=== PATIENT | female | born 1945 | race Caucasian/White ===

== ENCOUNTER 2018-01-30 12:20 | Observation (INO) | payer OTHER, MEDICARE ==
--- NOTE | 2018-01-30 12:49 | RAD REPORT ---
EXAM DESCRIPTION: Yoandy Single View01/30/2018 12:41 pm CLINICAL HISTORY: Chest pain COMPARISON: July 2017 FINDINGS: The lungs appear clear of acute infiltrate. The heart is normal size IMPRESSION: No acute abnormalities displayed
[2018-01-30 13:00] LABS: Absolute Lymphocytes (CBC) 1.2 K/uL (0.7-4.9); Absolute Monocytes 0.4 K/uL (0.1-1.3); Absolute Neutrophil 4.1 K/uL (1.8-8.0); Basophils % 0.2 % (0-1.3); Eosinophils % 2.6 % (0-4.4); Hematocrit 48.3 % (36.0-45.0); MCH 30.1 pg (27.0-35.0); MCV 89.9 fL (80-100); MPV 8.5 fL (7.6-11.3); Monocytes % 7.1 % (3.3-12.3); RBC Red Blood Cell Count 5.37 M/uL (3.86-4.86)
[2018-01-30 13:02] LABS: Protime INR 0.98
[2018-01-30] MEDS ORDERED: ASPIRIN 81 MG CHEWABLE TABLET ONE (13:12)
[2018-01-30] MEDS ORDERED: NITROGLYCERIN 0.4 MG/TAB SL ONE (13:15)
[2018-01-30 13:16] LABS: Albumin 4.1 g/dL (3.4-5.0); Bilirubin Direct 0.2 mg/dL (0-0.2); Bilirubin Total 0.6 mg/dL (0.2-1.0); Magnesium 2.6 mg/dL (1.8-2.4); Potassium 4.4 mmol/L (3.5-5.1); Protein, Total 7.3 g/dL (6.4-8.2)
--- NOTE | 2018-01-30 13:38 | EKG ---
Test Date: 2018-01-30 Test Time: 12:32:09 Skein Bander: JOHN MEASUREMENT RESULTS: Intervals: Rate: 53 MT: 162 QRSD: 80 QT: 408 QTc: 382 [place]: P: 21 MT: 162 QRS: -29 T: 12 INTERPRETIVE STATEMENTS: Sinus bradycardia Low voltage QRS Borderline ECG Compared to ECG 07/25/2017 06:18:37 Low QRS voltage now present Electronically Signed On 01-30-18 13:38:08 CDT by Isaiah Breaux
--- NOTE | 2018-01-30 13:47 | EDPHYS ---
Physician Documentation [facility] Name: Karoline Paredes Age: 72 yrs Sex: Female : 1945 Arrival Date: 01/30/2018 Time: 12:23 Bed 13 Private MD: ED Physician Chetan Swift HPI: 01/30 13:44 This 72 yrs old Female presents to ER via Ambulatory with complaints of Chest jr8 Pain. 13:44 The patient or guardian reports chest pain that is located primarily in the substernal jr8 area, anterior chest wall, left. Onset: acutely, today. The pain radiates to the left arm. Associated signs and symptoms: Pertinent positives: nausea. The chest pain is described as a pressure. Duration: The patient or guardian reports a single episode, that is still ongoing, that lasted 1 hour(s). Modifying factors: The symptoms are alleviated by nothing. the symptoms are aggravated by nothing. Severity of pain: At its worst the pain was moderate in the emergency department the pain is unchanged. The patient has experienced a previous episode. The patient has not recently seen a physician. Stated that she has had on/off chest pressure for past 3 days. Today has been the worst and longest episode . Historical: - Allergies: 12:26 Bactrim; hj 12:26 PENICILLINS; hj - Home Meds: 12:26 Aspirin Oral [Active]; gabapentin Oral [Active]; Glyburide Oral [Active]; lisinopril hj Oral [Active]; pantoprazole Oral [Active]; pravastatin Oral [Active]; Plavix Oral [Active]; - PMHx: 12:26 Diabetes - NIDDM; GERD; Hyperlipidemia; Hypertension; Myocardial infarction; hj - PSHx: 12:26 Cholecystectomy; Tubal ligation; Heart stents; hj - Immunization history:: Adult Immunizations up to date. - Social history:: Smoking status: Patient/guardian denies using tobacco, Patient/guardian denies using alcohol. - Ebola Screening: : Patient negative for fever greater than or equal to 101.5 degrees Fahrenheit, and additional compatible Ebola Virus Disease symptoms Patient denies exposure to infectious person Patient denies travel to an Ebola-affected area in the 21 days before illness onset. ROS: 13:44 Eyes: Negative for injury, pain, redness, and discharge, ENT: Negative for injury, jr8 pain, and discharge, Neck: Negative for injury, pain, and swelling, Respiratory: Negative for shortness of breath, cough, wheezing, and pleuritic chest pain, Abdomen/GI: Negative for abdominal pain, nausea, vomiting, diarrhea, and constipation, Back: Negative for injury and pain, MS/Extremity: Negative for injury and deformity, Skin: Negative for injury, rash, and discoloration, Neuro: Negative for headache, weakness, numbness, tingling, and seizure. 13:44 Cardiovascular: Positive for chest pain, Negative for edema, orthopnea, palpitations, paroxysmal nocturnal dyspnea. Exam: 13:44 Eyes: Pupils equal round and reactive to light, extra-ocular motions intact. Lids and jr8 lashes normal. Conjunctiva and sclera are non-icteric and not injected. Cornea within normal limits. Periorbital areas with no swelling, redness, or edema. ENT: Nares patent. No nasal discharge, no septal abnormalities noted. Tympanic membranes are normal and external auditory canals are clear. Oropharynx with no redness, swelling, or masses, exudates, or evidence of obstruction, uvula midline. Mucous membranes moist. Neck: Trachea midline, no thyromegaly or masses palpated, and no cervical lymphadenopathy. Supple, full range of motion without nuchal rigidity, or vertebral point tenderness. No Meningismus. Cardiovascular: Regular rate and rhythm with a normal S1 and S2. No gallops, murmurs, or rubs. Normal PMI, no JVD. No pulse deficits. Respiratory: Lungs have equal breath sounds bilaterally, clear to auscultation and percussion. No rales, rhonchi or wheezes noted. No increased work of breathing, no retractions or nasal flaring. Abdomen/GI: Soft, non-tender, with normal bowel sounds. No distension or tympany. No guarding or rebound. No evidence of tenderness throughout. Back: No spinal tenderness. No costovertebral tenderness. Full range of motion. Skin: Warm, dry with normal turgor. Normal color with no rashes, no lesions, and no evidence of cellulitis. MS/ Extremity: Pulses equal, no cyanosis. Neurovascular intact. Full, normal range of motion. Neuro: Awake and alert, GCS 15, oriented to person, place, time, and situation. Cranial nerves II-XII grossly intact. Motor strength 5/5 in all extremities. Sensory grossly intact. Cerebellar exam normal. Normal gait. Vital Signs: 12:27 BP 159 / 80; Pulse 56; Resp 18; Temp 98.0(O); Pulse Ox 95% on R/A; Weight 82.1 kg; hj Height 5 ft. 6 in. (167.64 cm); Pain 4/10; 13:37 BP 127 / 65; Pulse 57; Resp 16; Pulse Ox 100% on R/A; la1 15:45 BP 148 / 69; Pulse 60; Resp 16; Pulse Ox 100% on R/A; la1 12:27 Body Mass Index 29.21 (82.10 kg, 167.64 cm) hj MDM: 12:31 Patient medically screened. jr8 13:44 The patient was given aspirin in the Emergency Department. Data reviewed: vital signs, 8 nurses notes, lab test result(s), EKG, radiologic studies, plain films, and as a result, I will discharge patient. Data interpreted: Pulse oximetry: on room air is 100 %. Interpretation: normal. Counseling: I had a detailed discussion with the patient and/or guardian regarding: the historical points, exam findings, and any diagnostic results supporting the discharge/admit diagnosis, lab results, radiology results, the need for further work-up and treatment in the hospital. 01/30 12:31 Order name: Basic Metabolic Panel; Complete Time: 13:44 [facility] 01/30 12:31 Order name: CBC with Diff; Complete Time: 13:11 [facility] 01/30 12:31 Order name: LFT's; Complete Time: 13:44 [facility] 01/30 12:31 Order name: Magnesium; Complete Time: 13:44 [facility] 01/30 12:31 Order name: NT PRO-BNP; Complete Time: 13:44 [facility] 01/30 12:31 Order name: PT-INR; Complete Time: 13:11 [facility] 01/30 12:23 Order name: EKG; Complete Time: 12:23 01/30 12:31 Order name: Troponin (emerg Dept Use Only); Complete Time: 13:44 [facility] 01/30 12:31 Order name: XRAY Chest (1 view); Complete Time: 12:50 [facility] 01/30 12:31 Order name: Cardiac monitoring; Complete Time: 12:44 01/30 12:31 Order name: EKG - Nurse/Tech; Complete Time: 12:44 01/30 12:31 Order name: IV Saline Lock; Complete Time: 12:44 01/30 12:31 Order name: Labs collected and sent; Complete Time: 12:44 01/30 12:31 Order name: O2 Per Protocol; Complete Time: 12:44 01/30 12:31 Order name: O2 Sat Monitoring; Complete Time: 12:44 01/30 12:31 Order name: Urine Dipstick-Ancillary (obtain specimen); Complete Time: 15:52 8 Administered Medications: 13:03 Drug: Aspirin Chewable Tablet 324 mg Route: PO; la1 13:49 Follow up: Response: No adverse reaction la1 13:12 Drug: Nitroglycerin 0.4 mg Route: Sublingual; la1 13:49 Follow up: Response: Pain is decreased la1 Disposition: 17:41 Co-signature as Attending Physician, Chetan Swift MD Available for consultation at ps1 all times. . Disposition: 01/30/18 13:46 Hospitalization ordered by Jeffery Haines for Observation. Preliminary diagnosis is Angina pectoris. - Bed requested for Telemetry/MedSurg (observation). - Status is Observation. la1 - Condition is Stable. - Problem is new. - Symptoms have improved. UTI on Admission? No Signatures: Dispatcher [employer] EDMS Lenny Warren PA PA jr8 Chi Werner RN RN la1 Ethel Balderas ag Robert Adler RN RN hj Singer, Phillip, MD MD ps1 Corrections: (The following items were deleted from the chart) 13:46 13:46 Hospitalization Ordered by Jeffery Haines MD for Observation. Preliminary diagnosis jr8 is Chest pain, unspecified. Bed requested for Telemetry/MedSurg (observation). Status is Observation. Condition is Stable. Problem is new. Symptoms have improved. UTI on Admission? No. jr8 15:50 13:46 01/30/2018 13:46 Hospitalization Ordered by Jeffery Haines MD for Observation. ag Preliminary diagnosis is Angina pectoris. Bed requested for Telemetry/MedSurg (observation). Status is Observation. Condition is Stable. Problem is new. Symptoms have improved. UTI on Admission? No. jr8 16:18 15:50 01/30/2018 13:46 Hospitalization Ordered by Jeffery Haines MD for Observation. la1 Preliminary diagnosis is Angina pectoris. Bed requested for Telemetry/MedSurg (observation). Status is Observation. Condition is Stable. Problem is new. Symptoms have improved. UTI on Admission? No. ag
--- NOTE | 2018-01-30 13:47 | ER ---
Nurse's Notes [facility] Name: Karoline Paredes Age: 72 yrs Sex: Female : 1945 Arrival Date: 01/30/2018 Time: 12:23 Bed 13 Private MD: Diagnosis: Angina pectoris Presentation: 01/30 12:23 Presenting complaint: Patient states: i have this pain on my chest for 3 days now, i hj have a stent that was placed [address] Scales, and now the pain is getting worse, the pain moves to the back and shoulders, reports nausea; reports aching, heavy type of pain;. Transition of care: patient was not received from another setting of care. Onset of symptoms was January 27, 2018. Risk Assessment: Do you want to hurt yourself or someone else? Patient reports no desire to harm self or others. Initial Sepsis Screen: Does the patient meet any 2 criteria? No. Patient's initial sepsis screen is negative. Does the patient have a suspected source of infection? No. Patient's initial sepsis screen is negative. Care prior to arrival: None. 12:23 Method Of Arrival: Ambulatory 12:23 Acuity: JOVITA 3 Triage Assessment: 12:26 General: Appears in no apparent distress. uncomfortable, Behavior is calm, cooperative, hj appropriate for age. Pain: Complains of pain in chest Pain radiates to back and left arm Pain currently is 4 out of 10 on a pain scale. Cardiovascular: Capillary refill < 3 seconds Patient's skin is warm and dry. Historical: - Allergies: 12:26 Bactrim; 12:26 PENICILLINS; hj - Home Meds: 12:26 Aspirin Oral [Active]; gabapentin Oral [Active]; Glyburide Oral [Active]; lisinopril hj Oral [Active]; pantoprazole Oral [Active]; pravastatin Oral [Active]; Plavix Oral [Active]; - PMHx: 12:26 Diabetes - NIDDM; GERD; Hyperlipidemia; Hypertension; Myocardial infarction; hj - PSHx: 12:26 Cholecystectomy; Tubal ligation; Heart stents; hj - Immunization history:: Adult Immunizations up to date. - Social history:: Smoking status: Patient/guardian denies using tobacco, Patient/guardian denies using alcohol. - Ebola Screening: : Patient negative for fever greater than or equal to 101.5 degrees Fahrenheit, and additional compatible Ebola Virus Disease symptoms Patient denies exposure to infectious person Patient denies travel to an Ebola-affected area in the 21 days before illness onset. Screenin:26 Abuse screen: Denies threats or abuse. Denies injuries from another. Nutritional hj screening: No deficits noted. Tuberculosis screening: No symptoms or risk factors identified. Fall Risk None identified. Assessment: 12:27 Pain: Pain began 2-3 days ago. hj 12:42 General: Appears in no apparent distress. comfortable, Behavior is calm, cooperative. la1 Pain: Complains of pain in chest Pain radiates to left shoulder Pain currently is 4 out of 10 on a pain scale. Quality of pain is described as heavy. Neuro: Level of Consciousness is awake, alert, obeys commands, Oriented to person, place, time, situation. Cardiovascular: Heart tones S1 S2 present Capillary refill < 3 seconds Patient's skin is warm and dry. Rhythm is sinus rhythm. Respiratory: Airway is patent Respiratory effort is even, unlabored, Respiratory pattern is regular, symmetrical, Breath sounds are clear bilaterally. GI: Abdomen is round non-distended, Bowel sounds present X 4 quads. Patient currently denies diarrhea, nausea, vomiting. : No signs and/or symptoms were reported regarding the genitourinary system. 15:45 Reassessment: Patient appears in no apparent distress at this time. No changes from la1 previously documented assessment. Patient and/or family updated on plan of care and expected duration. Pain level reassessed. Patient is alert, oriented x 3, equal unlabored respirations, skin warm/dry/pink. Vital Signs: 12:27 BP 159 / 80; Pulse 56; Resp 18; Temp 98.0(O); Pulse Ox 95% on R/A; Weight 82.1 kg; hj Height 5 ft. 6 in. (167.64 cm); Pain 4/10; 13:37 BP 127 / 65; Pulse 57; Resp 16; Pulse Ox 100% on R/A; la1 15:45 BP 148 / 69; Pulse 60; Resp 16; Pulse Ox 100% on R/A; la1 12:27 Body Mass Index 29.21 (82.10 kg, 167.64 cm) ED Course: 12:23 Patient arrived in ED. hj 12:25 Triage completed. hj 12:27 Arm band placed on left wrist. hj 12:27 Patient has correct armband on for positive identification. Placed in gown. Bed in low hj position. Call light in reach. Side rails up X 1. Adult w/ patient. phototypesetting equipment monitor on. Pulse ox on. NIBP on. 12:27 Patient maintains SpO2 saturation greater than 95% on room air. hj 12:29 Chi Werner, RN is Primary Nurse. la1 12:30 Lenny Warren PA is PHCP. jr8 12:30 Chetan Swift MD is Attending Physician. jr8 12:40 X-ray completed. Portable x-ray completed in exam room. Patient tolerated procedure [facility] well. 12:41 XRAY Chest (1 view) In Process Unspecified. EDMS 12:43 No provider procedures requiring assistance completed. Inserted saline lock: 20 gauge la1 in left antecubital area, using aseptic technique. Blood collected. 13:05 EKG done, by actuarial technician. reviewed by Lenny PLASENCIA. [facility] 13:46 Jeffery Haines MD is Hospitalizing Provider. jr8 16:18 Patient admitted, IV remains in place. la1 Administered Medications: 13:03 Drug: Aspirin Chewable Tablet 324 mg Route: PO; la1 13:49 Follow up: Response: No adverse reaction ut1 13:12 Drug: Nitroglycerin 0.4 mg Route: Sublingual; la1 13:49 Follow up: Response: Pain is decreased la1 Outcome: 13:46 Decision to Hospitalize by Provider. jr8 16:17 Admitted to Med/surg accompanied by tech, via wheelchair, room 410, Report called to laPao Cortez 16:17 Condition: stable 16:17 Instructed on the need for admit. 16:18 Patient left the ED. la1 Signatures: Dispatcher [employer] EDMS Mckayla Garibay [facility] Lenny Warren PA PA 8 Chi Werner RN RN utRobert Tee RN RN hj Montes, Shakira 3
--- NOTE | 2018-01-30 15:13 | P.HP ---
Certification for Inpatient Patient admitted to: Observation With expected LOS: <2 Midnights Practitioner: I am a practitioner with admitting privileges, knowledge of patient current condition, hospital course, and medical plan of care. Services: Services provided to patient in accordance with Admission requirements found in Title 42 Section 412.3 of the Code of Federal Regulations Patient History Date of Service: 01/30/18 Reason for admission: CHEST PAIN History of Present Illness: MS. SALGADO IS A DIABETIC PATIENT WITH CORONARY STENT ABOUT [address] Laure SMITH. SHE FOR 3 DAYS HAS CHEST PAIN WITH L ARM RADIATION OFF AND ON WITH NAUSEA BUT NO DIAPHORESIS. Allergies Penicillins Allergy (Verified 04/22/17 23:12) Unknown sulfamethoxazole [From Bactrim] Allergy (Verified 04/22/17 23:12) Unknown trimethoprim [From Bactrim] Allergy (Verified 04/22/17 23:12) Unknown Home Medications: Aspirin Chewable [Aspirin Chewable*] 1 tab PO DAILY 02/07/15 Gabapentin [Neurontin*] 600 mg PO TID 02/07/15 Liraglutide [Victoza 2-Alcides] 1.2 mg DAILY 02/07/15 Glimepiride [Amaryl] 4 mg PO BID 04/23/17 Losartan Potassium [Cozaar] 100 mg PO DAILY 04/23/17 Atorvastatin Calcium [Lipitor] 80 mg PO BEDTIME #30 tab 04/25/17 Clopidogrel Bisulfate [Plavix*] 75 mg PO DAILY #30 tablet 04/25/17 Insulin -Regular Human [Novolin -R*] See Protocol SQ ACHS ml 04/25/17 Metoprolol Tartrate [Lopressor*] 25 mg PO BID 6AM 6PM #60 tab 04/25/17 Nitroglycerin [Nitrostat*] 0.4 mg SL UD PRN #1 bottle 04/25/17 - Past Medical/Surgical History Diabetic: Yes -: Diabetes -: tubaligation -: cholecystectomy -: Knee surgery -: 3 right shoulder surgeries - Family History Father -: Stroke Mother -: Heart disease, Other (see notes) Notes: ALZHEIMER'S Brother -: Heart disease - Social History Alcohol use: No CD- Drugs: No Review of Systems 10-point ROS is otherwise unremarkable Physical Examination - Physical Exam General: Alert, Mild distress HEENT: Atraumatic, PERRLA, Mucous membr. moist/pink, EOMI, Sclerae nonicteric Neck: Supple, 2+ carotid pulse no bruit, No LAD, Without JVD or thyroid abnormality Respiratory: Clear to auscultation bilaterally, Normal air movement Cardiovascular: Regular rate/rhythm, Normal S1 S2 Gastrointestinal: Normal bowel sounds, No tenderness Musculoskeletal: No tenderness Integumentary: No rashes Neurological: Normal gait, Normal speech, Normal strength at 5/5 x4 extr, Normal tone, Normal affect Lymphatics: No axilla or inguinal lymphadenopathy - Studies Laboratory Data (last 24 hrs) 01/30/18 12:40: PT 11.6, INR 0.98 01/30/18 12:40: WBC 5.8, Hgb 16.2 H, Hct 48.3 H, Plt Count 160 01/30/18 12:40: Sodium 140, Potassium 4.4, BUN 25 H, Creatinine 1.70 H, Glucose 167 H, Magnesium 2.6 H, Total Bilirubin 0.6, AST 27, ALT 32, Alkaline Phosphatase 89 Assessment and Plan - Problems (Diagnosis) (1) Chest pain due to CAD Current Visit: Yes Status: Acute Plan: THIS PAIN HAS CARDIAC CHARACTERISTICS. SHE IS HIGH RISK FOR CAD WITH RISK FACTORS OF HAVING CAD, DM, HTN, OBESITY, MENOPAUSE. LOVENOX SC BID. SMALLER DOSE SHE HAS CRF ALSO. ASA DAILY. CONSULT CARDIOLOLGY. (2) Diabetes mellitus type 2 in obese Current Visit: No Status: Chronic Plan: DIET IS NOT THE BEST HAS DONE WELL IN PAST WHEN SHE WATCHES DIET WITH MEDS. I HAVE TO CONTAIN THE COST DOWN TO GENERIC MEDS SHE IN THE PAST HAS NOT BEEN ABLE TO AFFORD EXPENSIVE BRAND NAME MEDS. - Advance Directives Does patient have a Living Will: No Does patient have a Durable POA for Healthcare: No
[2018-01-30] MEDS ORDERED: ONDANSETRON 4 MG/2 ML VIAL IV PRN (17:14)
[2018-01-30] MEDS: INSULIN -REGULAR HUMAN 50 UNIT/0.5 ML ML SQ SCH ×2 (17:14→21:00)
[2018-01-30] MEDS ORDERED: D50W 25 GM/50 ML SYRINGE IV PRN (17:14)
[2018-01-30] MEDS ORDERED: GLUCAGON 1 MG/VIAL IM PRN (17:14)
[2018-01-30 18:23] VITALS: BMI 29.2
[2018-01-30] MEDS: ENOXAPARIN 40 MG/0.4 ML SQ SCH (21:21)
[2018-01-31 02:06] LABS: Urine Appearance CLEAR; Urine Bilirubin NEGATIVE (NEG); Urine Blood NEGATIVE (NEG); Urine Color YELLOW; Urine Glucose 3+ (NEG); Urine Protein NEGATIVE (NEG); Urine Urobilinogen 0.2 mg/dL (0.2-1.0); Urine pH 5.5 (5.0-7.0)
[2018-01-31 02:07] LABS: Urine Microscopic Reflex NO UMIC
[2018-01-31 06:07] LABS: Potassium 4.7 mmol/L (3.5-5.1)
[2018-01-31 06:19] LABS: Absolute Lymphocytes (CBC) 0.8 K/uL (0.7-4.9); Absolute Monocytes 0.6 K/uL (0.1-1.3); Basophils % 0.3 % (0-1.3); Eosinophils % 1.2 % (0-4.4); Hematocrit 45.8 % (36.0-45.0); Lymphocytes % 10.4 % (15.3-44.8); MCH 30.4 pg (27.0-35.0); MPV 9.5 fL (7.6-11.3); Monocytes % 7.6 % (3.3-12.3); RBC Red Blood Cell Count 5.15 M/uL (3.86-4.86)
[2018-01-31] MEDS: ACETAMINOPHEN 500 MG TAB PO PRN (06:46)
[2018-01-31] MEDS: INSULIN -REGULAR HUMAN 50 UNIT/0.5 ML ML SQ SCH ×4 (07:30→20:32)
[2018-01-31] MEDS ORDERED: ASPIRIN EC 81 MG TAB PO SCH (09:00)
[2018-01-31] MEDS: ENOXAPARIN 40 MG/0.4 ML SQ SCH ×2 (10:45→20:17)
[2018-01-31] MEDS: ACETYLCYST 20% 800 MG/4 ML VIAL PO SCH ×2 (11:00→20:17)
--- NOTE | 2018-01-31 11:40 | CON ---
Identification: A 72-year-old woman. Chief Complaint: Chest pain. History Of Present Illness: Ms. Paredes had a right coronary stent in April 2017. Her other arteri es looked fine. The stent went well. She has been feeling fine after that stent until the past fabian ral days, she had several episodes of chest pain. No constant chest pain for the entire day, althoug h it is relieved at this point. Since she has been here, her cardiac enzymes all look normal. She h as a mild elevation of creatinine and has stage 3 kidney disease with estimated GFR at 37 mL/minute. Outpatient Medications: Venlafaxine, glimepiride, atorvastatin, losartan, metoprolol, empagliflozin, gabapentin and Plavix. Allergies: SHE REPORTS DRUG INTOLERANCE TO PENICILLIN, SULFAMETHOXAZOLE, TRIMETHOPRIM. Physical Examination: Vital Signs: 5 feet, 6 inches, 181 pounds. HEENT: Normal carotids. No bruit. Lungs: Clear. Cardiac Exam: Normal. Abdomen: Soft. EXTREMITIES: Normal distal pulses. Diagnostic Data: The electrocardiogram shows sinus bradycardia, low voltage, no infarction, injury, or ischemia. Impression And Plan: For Ms. Paredes I have recommended that we do a cardiac cath. We will do that 2 days from now and the tailings dam laborer is open again. Hopefully, we will find that things are stable. We ca n attribute her pain to something other than the heart with confidence. If not, we will be ready to do a stent at the same time. She seems to understand the procedure, its potential benefits, indications, risks, and agrees to proceed. JULIA/JOHN Voice ID: [id number] Report ID: [id number]
--- NOTE | 2018-01-31 16:26 | P.PN ---
Subjective Date of Service: 01/31/18 Chief Complaint: CHEST PAIN Subjective: Improving (some pain only.) Review of Systems 10-point ROS is otherwise unremarkable General: Weakness, Malaise Physical Examination - Vital Signs Temperature: 97.1 F Blood Pressure: 98/75 Pulse: 95 Respirations: 17 Pulse Ox (%): 100 - Physical Exam General: Alert, In no apparent distress HEENT: Atraumatic, PERRLA, EOMI Neck: Supple, JVD not distended Respiratory: Clear to auscultation bilaterally, Normal air movement Cardiovascular: Regular rate/rhythm, Normal S1 S2 Gastrointestinal: Normal bowel sounds, No tenderness Musculoskeletal: No tenderness Integumentary: No rashes Neurological: Normal speech, Normal tone, Normal affect Lymphatics: No axilla or inguinal lymphadenopathy - Studies Medications List Reviewed: Yes Assessment And Plan - Current Problems (Diagnosis) (1) Chest pain due to CAD Current Visit: Yes Status: Acute Plan: THIS PAIN HAS CARDIAC CHARACTERISTICS. SHE IS HIGH RISK FOR CAD WITH RISK FACTORS OF HAVING CAD, DM, HTN, OBESITY, MENOPAUSE. LOVENOX SC BID. SMALLER DOSE SHE HAS CRF ALSO. ASA DAILY. CONSULT CARDIOLOLGY. CATH ON FRIDAY. STABLE FO R NOW STOP ASA RESUME PLAVIX. CREAT BETTER (2) Diabetes mellitus type 2 in obese Current Visit: No Status: Chronic Plan: DIET IS NOT THE BEST HAS DONE WELL IN PAST WHEN SHE WATCHES DIET WITH MEDS. I HAVE TO CONTAIN THE COST DOWN TO GENERIC MEDS SHE IN THE PAST HAS NOT BEEN ABLE TO AFFORD EXPENSIVE BRAND NAME MEDS. DM NOT CONTROLLED NOT ABLE TO WATCH DIET SHE WILL TAKE TRULICITY OR OZEMPIC BUT CAN'T AFFORD.
[2018-01-31] MEDS ORDERED: GLIMEPIRIDE 2 MG TABLET PO SCH (17:00)
[2018-01-31] MEDS: GLIMEPIRIDE 4 MG TABLET PO SCH (17:23)
[2018-01-31] MEDS: METOPROLOL TAR 25 MG TAB PO SCH (17:24)
[2018-01-31] MEDS ORDERED: METOPROLOL TAR 25 MG TAB PO SCH (18:00)
[2018-01-31] MEDS: ATORVASTATIN 80 MG TAB PO SCH (20:18)
[2018-01-31] MEDS: VENLAFAXINE 37.5 MG PO SCH (20:18)
[2018-01-31] MEDS: GABAPENTIN 600 MG TABLET PO SCH (20:19)
[2018-01-31] MEDS ORDERED: ATORVASTATIN 80 MG TAB PO SCH (21:00)
[2018-01-31] MEDS ORDERED: VENLAFAXINE HCL 37.5 MG TAB PO SCH (21:00)
[2018-01-31] MEDS ORDERED: GABAPENTIN 300 MG CAP PO SCH (21:00)
[2018-02-01] MEDS: METOPROLOL TAR 25 MG TAB PO SCH ×2 (06:13→18:18)
[2018-02-01 06:14] LABS: Potassium 3.9 mmol/L (3.5-5.1)
[2018-02-01] MEDS: INSULIN -REGULAR HUMAN 50 UNIT/0.5 ML ML SQ SCH ×4 (07:30→21:00)
[2018-02-01] MEDS ORDERED: CLOPIDOGREL 75 MG TABLET PO SCH (09:00)
[2018-02-01] MEDS ORDERED: LOSARTAN POTASSIUM 50 MG TABLET PO SCH (09:00)
[2018-02-01] MEDS: ENOXAPARIN 40 MG/0.4 ML SQ SCH (09:25)
[2018-02-01] MEDS: ACETYLCYST 20% 800 MG/4 ML VIAL PO SCH ×2 (09:26→23:55)
[2018-02-01] MEDS: LOSARTAN POTASSIUM 100 MG TABLET PO SCH (09:28)
[2018-02-01] MEDS: GLIMEPIRIDE 4 MG TABLET PO SCH ×3 (09:30→18:19)
[2018-02-01] MEDS: CLOPIDOGREL 75 MG TABLET PO SCH (09:31)
[2018-02-01] MEDS: GABAPENTIN 600 MG TABLET PO SCH ×2 (09:32→21:00)
[2018-02-01] MEDS: JARDIANCE 25 MG TABLET PO SCH (09:33)
--- NOTE | 2018-02-01 11:08 | PN ---
Mrs. Paredes seems to be feeling fine. Because she had a stent put in her right coronary and now has c hest pain, I have recommended a cardiac cath. We will do that tomorrow. Her right upper arm has had extensive damage. The bones are replaced with metal objects and the metal objects had to be removed , so I am afraid the tissues around the brachial artery are probably and such that I do not want to a ttempt a radial approach from the right. We could consider from the left, but I have recommended doi ng it from the femoral artery. We will do that and see what we need to see tomorrow. Hopefully, the stent will be patent and she has no new lesions and we can attribute her chest pain to something non cardiac. JULIA/JOHN Voice ID: [id number] Report ID: [id number]
--- NOTE | 2018-02-01 11:20 | P.PN ---
Subjective Date of Service: 02/01/18 Chief Complaint: CHEST PAIN Subjective: Improving (slight pain still there.) Review of Systems 10-point ROS is otherwise unremarkable Physical Examination - Vital Signs Temperature: 97.8 F Blood Pressure: 122/75 Pulse: 64 Respirations: 17 Pulse Ox (%): 100 - Physical Exam General: Alert, Mild distress HEENT: Atraumatic, PERRLA, EOMI Neck: Supple, JVD not distended Respiratory: Clear to auscultation bilaterally, Normal air movement Cardiovascular: Regular rate/rhythm, Normal S1 S2, Other (VARICOSE VEINS, MODERATE) Gastrointestinal: Normal bowel sounds, No tenderness Musculoskeletal: No tenderness Integumentary: No rashes Neurological: Normal speech, Normal tone, Normal affect Lymphatics: No axilla or inguinal lymphadenopathy - Studies Medications List Reviewed: Yes Assessment And Plan - Current Problems (Diagnosis) (1) Chest pain due to CAD Current Visit: Yes Status: Acute Plan: THIS PAIN HAS CARDIAC CHARACTERISTICS. SHE IS HIGH RISK FOR CAD WITH RISK FACTORS OF HAVING CAD, DM, HTN, OBESITY, MENOPAUSE. LOVENOX SC BID. SMALLER DOSE SHE HAS CRF ALSO. ASA DAILY. CONSULT CARDIOLOLGY. CATH ON FRIDAY. STABLE FO R NOW STOP ASA RESUME PLAVIX. CREAT BETTER (2) Diabetes mellitus type 2 in obese Current Visit: No Status: Chronic Plan: DIET IS NOT THE BEST HAS DONE WELL IN PAST WHEN SHE WATCHES DIET WITH MEDS. I HAVE TO CONTAIN THE COST DOWN TO GENERIC MEDS SHE IN THE PAST HAS NOT BEEN ABLE TO AFFORD EXPENSIVE BRAND NAME MEDS. DM NOT CONTROLLED NOT ABLE TO WATCH DIET SHE WILL TAKE TRULICITY OR OZEMPIC BUT CAN'T AFFORD. (3) Varicose vein of leg Current Visit: Yes Status: Chronic Plan: SHE HAS NO PAIN, SWELLING OR ULCERS SHE MAY WEAR STOCKINGS BUT DOES NOT LIKE HOT FEELING. Qualifiers: Laterality: bilateral
[2018-02-01] MEDS: ACETAMINOPHEN 500 MG TAB PO PRN (16:37)
[2018-02-01] MEDS ORDERED: NITROGLYCERIN 0.4 MG/TAB SL ONE (17:00)
[2018-02-01] MEDS ORDERED: ENOXAPARIN 80 MG/0.8 ML SQ SCH (17:00)
[2018-02-01] MEDS ORDERED: ENOXAPARIN 80 MG/0.8 ML SQ ONE (18:00)
[2018-02-01] MEDS: ATORVASTATIN 80 MG TAB PO SCH (21:00)
[2018-02-01] MEDS: VENLAFAXINE 37.5 MG PO SCH (21:00)
[2018-02-02] MEDS: ACETYLCYST 20% 800 MG/4 ML VIAL PO SCH
--- NOTE | 2018-02-02 05:41 | EKG ---
Test Date: 2018-02-01 Test Time: 16:48:23 Go Cart Mechanic: MILE MEASUREMENT RESULTS: Intervals: Rate: 61 MD: 152 QRSD: 78 QT: 410 QTc: 412 [place]ford: P: 27 MD: 152 QRS: -32 T: 29 INTERPRETIVE STATEMENTS: Normal sinus rhythm Left axis deviation Inferior infarct, age undetermined Abnormal ECG Compared to ECG 01/30/2018 12:32:09 Left-axis deviation now present Myocardial infarct finding now present Sinus bradycardia no longer present Electronically Signed On 02-02-18 05:40:45 CDT by Isaiah Breaux
[2018-02-02] MEDS: METOPROLOL TAR 25 MG TAB PO SCH ×2 (06:00→17:13)
[2018-02-02] MEDS: INSULIN -REGULAR HUMAN 50 UNIT/0.5 ML ML SQ SCH ×3 (07:30→16:30)
[2018-02-02] MEDS: GLIMEPIRIDE 4 MG TABLET PO SCH ×2 (08:00→17:13)
[2018-02-02] MEDS: CLOPIDOGREL 75 MG TABLET PO SCH (08:59)
[2018-02-02] MEDS: JARDIANCE 25 MG TABLET PO SCH (09:00)
[2018-02-02] MEDS: GABAPENTIN 600 MG TABLET PO SCH (09:00)
[2018-02-02] MEDS: LOSARTAN POTASSIUM 100 MG TABLET PO SCH (09:00)
[2018-02-02] MEDS ORDERED: HEPA 1000U/500MLS 1,000 UNIT/500 ML BAG IV ONE (10:20)
[2018-02-02] MEDS ORDERED: NA CHLORIDE 0.9% 0 ML ONE (10:20)
[2018-02-02] MEDS ORDERED: ATROPINE SULF 1 MG/10 ML SYR IV ONE (10:20)
[2018-02-02] MEDS ORDERED: LIDOCAINE 1% MPF 5 ML VIAL ONE (10:34)
[2018-02-02] MEDS ORDERED: NA CHLORIDE 0.9% 500 ML ONE (10:53)
[2018-02-02] MEDS ORDERED: MIDAZOLAM HCL 2 MG/2 ML INJ ONE (10:53)
[2018-02-02] MEDS ORDERED: FENTANYL CITR 100 MCG/2 ML ONE (10:53)
[2018-02-02 13:21] VITALS: TEMP 97.7
[2018-02-02 15:31] VITALS: BP 107/53; O2SAT 93
--- NOTE | 2018-02-02 18:15 | P.DS ---
Admission Date: 01/30/18 Discharge Date: 02/02/18 Disposition: ROUTINE DISCHARGE Discharge Condition: FAIR Reason for Admission: CHEST PAIN - Problems (1) Chest pain due to CAD Onset Date: 02/02/18 Current Visit: Yes Status: Acute (2) Diabetes mellitus type 2 in obese Onset Date: 02/02/18 Current Visit: Yes Status: Chronic (3) Varicose vein of leg Current Visit: Yes Status: Chronic Qualifiers: Laterality: bilateral Brief History of Present Illness: MS. SALGADO IS A DIABETIC PATIENT WITH CORONARY STENT ABOUT [address] Laure SMITH. SHE FOR 3 DAYS HAS CHEST PAIN WITH L ARM RADIATION OFF AND ON WITH NAUSEA BUT NO DIAPHORESIS. SHE HAD CATH TODAY. NO NEW ISSUES FOUND DC HOME IN STABLE CONDTION ALREADY ON MEDS FOR HEART SHE IS WILLING TO TRY OZEMIC QWK. Vital Signs/Physical Exam: Temp Pulse Resp BP Pulse Ox 97.7 F 81 16 107/53 L 99 02/02/18 13:11 02/02/18 17:17 02/02/18 15:11 02/02/18 15:11 02/02/18 08:00 Laboratory Data at Discharge: WBC 7.5 K/uL (4.3-10.9) D 01/31/18 05:19 Hgb 15.6 g/dL (12.0-15.0) H 01/31/18 05:19 Hct 45.8 % (36.0-45.0) H 01/31/18 05:19 Plt Count 161 K/uL (152-406) 01/31/18 05:19 PT 11.6 SECONDS (9.5-12.5) 01/30/18 12:40 INR 0.98 01/30/18 12:40 Sodium 141 mmol/L (136-145) 02/01/18 05:26 Potassium 3.9 mmol/L (3.5-5.1) 02/01/18 05:26 BUN 23 mg/dL (7-18) H 02/01/18 05:26 Creatinine 1.20 mg/dL (0.55-1.3) 02/01/18 05:26 Glucose 136 mg/dL (74-106) H 02/01/18 05:26 Magnesium 2.6 mg/dL (1.8-2.4) H 01/30/18 12:40 Total Bilirubin 0.6 mg/dL (0.2-1.0) 01/30/18 12:40 AST 27 U/L (15-37) 01/30/18 12:40 ALT 32 U/L (12-78) 01/30/18 12:40 Alkaline Phosphatase 89 U/L (45-117) 01/30/18 12:40 Troponin I < 0.02 ng/mL (0.0-0.045) 01/30/18 21:15 Triglycerides 189 mg/dL (<150) H 01/30/18 16:15 Cholesterol 133 mg/dL (<200) 01/30/18 16:15 LDL Cholesterol Direct 74 mg/dL (100-129) L 02/01/18 05:26 HDL Cholesterol 47 mg/dL (40-60) 01/30/18 16:15 Cholesterol/HDL Ratio 2.83 01/30/18 16:15 Home Medications: Atorvastatin Calcium [Lipitor] 80 mg PO BEDTIME 01/30/18 Clopidogrel Bisulfate [Plavix*] 75 mg PO DAILY 01/30/18 Empagliflozin [Jardiance] 25 mg PO DAILY 01/30/18 Gabapentin [Neurontin] 600 mg PO BID 01/30/18 Glimepiride 4 mg PO BID 01/30/18 Losartan Potassium 100 mg PO DAILY 01/30/18 Metoprolol Tartrate 25 mg PO BID 6AM 6PM 01/30/18 Venlafaxine HCl 37.5 mg PO BEDTIME 01/30/18 Patient Discharge Instructions: FU IN OFFICE TWO WEEKS FROM NOW. FRIDAY. PL CALL TO MAKE APT. Diet: ADA Followup: Jeffery Haines MD [Primary Care Provider] - (2 weeks) Isaiah Breaux MD [ACTIVE - CAN ADMIT] - 1-2 Weeks
--- NOTE | 2018-02-02 22:32 | OP ---
Surgeon: Isaiah Breaux MD Chief Complaint: Chest pain. Procedures: Left heart catheterization, coronary left ventricular angiography. Findings: The patient has a normal ejection fraction and wall motion. The RCA stent placed in 2016 is widely patent. Normal flow. The LAD, mid RCA have mild disease. A large obtuse margina l is free of disease. A small distal circumflex after the obtuse marginal has sequential subtotal oc clusions. There is VONDA grade 0 to 1 flow. It is a small distal vessel and not felt to be amenable to angioplasty. It is unchanged compared to April 2017 and our plan is for medical therapy. Procedure In Detail: The patient was brought to the cardiac labor relations consultant in a fasting state, sedated wit h Versed and fentanyl, prepared and draped in usual sterile fashion. 15 cc of lidocaine was used to anesthetize the tissues of the right femoral artery. The artery was entered using an 18-gauge needle , short J-wire, modified Seldinger technique, 4-Kazakh sheath. We did the left coronary with a JL4, the right coronary with a 3DRC, and left ventricle with an angled pigtail. At the end of the procedu re, we took an angiogram of the right femoral artery using the sheath, and we elected to close with a n Angio-Seal device. This was successful. Estimated Blood Loss: 20 cc. Dredge Runner: Jena Norris. Complications: None. JULIA/JOHN Voice ID: [id number] Report ID: [id number]
== END 2018-02-02 18:56 | disposition home or self-care (01) ==
LOC: ER 12:20 → ERHOLD 15:01 → 4TH 16:08
PROVIDERS: ADMIT Internal Medicine; ATTEND Internal Medicine
PROC: 4A023N7 Measurement of Cardiac Sampling and Pressure, Left Heart, Percutaneous Approach (ICD-10-PCS; principal; 2018-02-02)
PROC: B2111ZZ Fluoroscopy of Multiple Coronary Arteries using Low Osmolar Contrast (ICD-10-PCS; 2018-02-02)
PROC: B2151ZZ Fluoroscopy of Left Heart using Low Osmolar Contrast (ICD-10-PCS; 2018-02-02)
DX: I25.119 Atherosclerotic heart disease of native coronary artery with unspecified angina pectoris (principal); I12.9 Hypertensive chronic kidney disease with stage 1 through stage 4 chronic kidney disease, or unspecified chronic kidney disease; N18.3 Chronic kidney disease, stage 3 (moderate); Z95.5 Presence of coronary angioplasty implant and graft; Z87.891 Personal history of nicotine dependence; E11.22 Type 2 diabetes mellitus with diabetic chronic kidney disease; Z79.84 Long term (current) use of oral hypoglycemic drugs; E78.5 Hyperlipidemia, unspecified; E66.9 Obesity, unspecified; Z68.29 Body mass index [BMI] 29.0-29.9, adult; I83.93 Asymptomatic varicose veins of bilateral lower extremities; Z79.02 Long term (current) use of antithrombotics/antiplatelets; Z88.0 Allergy status to penicillin; Z88.2 Allergy status to sulfonamides; R00.1 Bradycardia, unspecified; K21.9 Gastro-esophageal reflux disease without esophagitis; I25.2 Old myocardial infarction
CPT/HCPCS: 36415 ×3; 71045; 80048 ×3; 80061; 80076; 81003; 82962 ×12; 83036 ×2; 83721; 83735; 83880; 84484 ×3; 85025 ×2; 85610; 93005 ×3; 93458; 99285; C1760; C1893; J1650 ×5; J2250; J3010; G0378; J0583

== ENCOUNTER 2018-02-28 10:31 | Emergency (ER) | payer OTHER, MEDICARE ==
[2018-02-28] MEDS ORDERED: TETANUS & DIPHTHERIA TOX,ADULT 0.5 ML VIAL ONE (12:02)
[2018-02-28] MEDS ORDERED: AMOX/K CLAV 875 MG TAB ONE (12:02)
--- NOTE | 2018-02-28 12:46 | EDPHYS ---
Physician Documentation [facility] Name: Karoline Paredes Age: 72 yrs Sex: Female : 1945 Arrival Date: 02/28/2018 Time: 10:32 Bed 13 Private MD: Jeffery Haines V ED Physician Lionel Berg HPI: 02/28 11:24 This 72 yrs old Female presents to ER via Unassigned with complaints of Dog jmm Bite. 11:24 The patient was bitten on the right arm and right leg. Onset: The symptoms/episode jmm began/occurred acutely, just prior to arrival. Secondary to the bite the patient reports multiple puncture wounds, that are superficial. This is a 72 year old female that presents to the ED with right wrist and right thigh puncture wounds after being bitten by a neighbors dog. Patient states she was checking on the dog and it attacked her when it saw the tongue binder behind her. Denies other injuries. Is not UTD on tetanus. . Historical: - Allergies: 11:10 Bactrim; rb1 11:10 PENICILLINS; rb1 - Home Meds: 11:10 Aspirin Oral [Active]; gabapentin Oral [Active]; Glyburide Oral [Active]; lisinopril rb1 Oral [Active]; pantoprazole Oral [Active]; Plavix Oral [Active]; pravastatin Oral [Active]; - PMHx: 11:10 Diabetes - NIDDM; GERD; Hyperlipidemia; Hypertension; Myocardial infarction; rb1 - PSHx: 11:10 Cholecystectomy; Tubal ligation; Heart stents; rb1 - Immunization history:: Adult Immunizations up to date, Last tetanus immunization: unknown. - Social history:: Smoking status: Patient/guardian denies using tobacco. - Ebola Screening: : Patient negative for fever greater than or equal to 101.5 degrees Fahrenheit, and additional compatible Ebola Virus Disease symptoms. ROS: 11:24 Constitutional: Negative for fever, chills, and weight loss, Cardiovascular: Negative jmm for chest pain, palpitations, and edema, Respiratory: Negative for shortness of breath, cough, wheezing, and pleuritic chest pain, Abdomen/GI: Negative for abdominal pain, nausea, vomiting, diarrhea, and constipation. 11:24 Skin: Positive for puncture. 11:24 All other systems are negative. Exam: 11:24 Head/Face: atraumatic. Chest/axilla: Normal chest wall appearance and motion. [facility] Cardiovascular: Regular rate and rhythm. No edema appreciated Respiratory: Normal respirations, no respiratory distress appreciated 11:24 Constitutional: The patient appears in no acute distress, alert, awake. 11:24 Skin: injury, puncture(s), punctures noted ot the right mid foremar and the right thigh. 11:24 Musculoskeletal/extremity: No bony tenderness noted to the right forearm, full radial [facility] pulse, compartments are soft, NVI. 11:24 Neuro: Orientation: is normal, Mentation: is normal, Gait: is steady. 11:24 Psych: Behavior/mood is pleasant, cooperative. Vital Signs: 11:10 BP 132 / 67; Pulse 71; Resp 17; Temp 98.1(O); Pulse Ox 98% on R/A; Weight 86.64 kg (R); rb1 Height 5 ft. 6 in. (167.64 cm) (R); Pain 4/10; 12:08 BP 133 / 65; Pulse 68; Resp 18; Pulse Ox 99% on R/A; rb1 13:08 BP 136 / 63; Pulse 60; Resp 17; Pulse Ox 100% on R/A; Pain 2/10; rb1 11:10 Body Mass Index 30.83 (86.64 kg, 167.64 cm) rb1 MDM: 11:24 Patient medically screened. [facility] 12:44 Data reviewed: vital signs, nurses notes. Counseling: I had a detailed discussion with [facility] the patient and/or guardian regarding: the historical points, exam findings, and any diagnostic results supporting the discharge/admit diagnosis, the need for outpatient follow up, to return to the emergency department if symptoms worsen or persist or if there are any questions or concerns that arise at home. ED course: Patient given wound infection return precautions. Patient understood and agrees with the plan of care. . 02/28 11:30 Order name: Forearm Left XRAY; Complete Time: 12:53 [facility] Administered Medications: 12:00 Drug: Augmentin 875 mg Route: PO; rb1 12:30 Follow up: Response: No adverse reaction rb1 12:00 Drug: Tetanus-Diphtheria Toxoid Adult 0.5 ml {Pharmacognosist: [employer]. Exp: rb1 03/11/2020. Lot #: [id number]. } Route: IM; Site: left deltoid; 12:15 Follow up: Response: No adverse reaction rb1 13:09 Drug: Pepcid 20 mg Route: PO; rb1 13:42 Follow up: Response: No adverse reaction rb1 13:20 Drug: Dexamethasone 10 mg Route: IM; Site: right gluteus; iw 13:50 Follow up: Response: No adverse reaction rb1 Disposition: 18:21 Co-signature as Attending Physician, Lionel Berg MD. rn Disposition: 02/28/18 12:46 Discharged to Home. Impression: Dog Bite to the Right Forearm, Dog Bite to the Right Thigh. - Condition is Stable. - Discharge Instructions: Animal Bite. - Prescriptions for Doxycycline Hyclate 100 mg Oral Tablet - take 1 tablet by ORAL route every 12 hours; 20 tablet. - Medication Reconciliation Form, Thank You Letter, Antibiotic Education, Prescription Opioid Use form. - Follow up: Jeffery Haines MD; When: As needed; Reason: Recheck today's complaints, Continuance of care, Re-evaluation by your physician. Signatures: Dispatcher [employer] EDMS Rafael Mckinney PA PA jmm Williams, Irene, RN Lionel Hernandez MD MD rn Barber, Rebecca, BUSHRA RN rb1 Corrections: (The following items were deleted from the chart) 11:50 11:24 Skin: injury, puncture(s), nithya barriga 13:52 12:46 02/28/2018 12:46 Discharged to Home. Impression: Dog Bite to the Right Forearm; rb1 Dog Bite to the Right Thigh. Condition is Stable. Forms are Medication Reconciliation Form, Thank You Letter, Antibiotic Education, Prescription Opioid Use. Follow up: Jeffery Haines; When: As needed; Reason: Recheck today's complaints, Continuance of care, Re-evaluation by your physician. nithya
--- NOTE | 2018-02-28 12:46 | ER ---
Nurse's Notes [facility] Name: Karoline Paredes Age: 72 yrs Sex: Female : 1945 Arrival Date: 02/28/2018 Time: 10:32 Bed 13 Private MD: Jeffery Haines V Diagnosis: Dog Bite to the Right Forearm;Dog Bite to the Right Thigh Presentation: 02/28 11:10 Presenting complaint: Patient states: she went over her neighbors house and when she rb1 tried to leave the neighbors [place] bit her on the right forearm and right thigh. Transition of care: patient was not received from another setting of care. Onset of symptoms was February 28, 2018 at 09:30. Risk Assessment: Do you want to hurt yourself or someone else? Patient reports no desire to harm self or others. Initial Sepsis Screen: Does the patient meet any 2 criteria? No. Patient's initial sepsis screen is negative. Does the patient have a suspected source of infection? No. Patient's initial sepsis screen is negative. Care prior to arrival: None. 11:10 Method Of Arrival: Ambulatory rb1 11:10 Acuity: JOVITA 3 rb1 Triage Assessment: 11:10 Bite description: bite sustained to right leg and right arm by a dog, animal rb1 information: Appearance: appeared well, is from animal, vaccination(s) is unknown, was sustained 2-4 hours ago. Animal status: unknown and not captured, Animal control has been notified. General: Appears uncomfortable, Behavior is calm, cooperative. Pain: Complains of pain in right leg and right arm Pain currently is 4 out of 10 on a pain scale. Pain began 0930 this morning. Neuro: Level of Consciousness is awake, alert, obeys commands, Oriented to person, place, time, situation. Cardiovascular: Capillary refill < 3 seconds is brisk in bilateral fingers. Respiratory: Airway is patent Respiratory effort is even, unlabored, Respiratory pattern is regular, symmetrical. GI: No signs and/or symptoms were reported involving the gastrointestinal system. : No signs and/or symptoms were reported regarding the genitourinary system. Derm: Wound noted right leg and right arm Wound is punctures from the dog teeth. right forearm has minimal bleeding and right thigh is not bleeding. Musculoskeletal: Range of motion: intact in all extremities. Historical: - Allergies: 11:10 Bactrim; rb1 11:10 PENICILLINS; rb1 - Home Meds: 11:10 Aspirin Oral [Active]; gabapentin Oral [Active]; Glyburide Oral [Active]; lisinopril rb1 Oral [Active]; pantoprazole Oral [Active]; Plavix Oral [Active]; pravastatin Oral [Active]; - PMHx: 11:10 Diabetes - NIDDM; GERD; Hyperlipidemia; Hypertension; Myocardial infarction; rb1 - PSHx: 11:10 Cholecystectomy; Tubal ligation; Heart stents; rb1 - Immunization history:: Adult Immunizations up to date, Last tetanus immunization: unknown. - Social history:: Smoking status: Patient/guardian denies using tobacco. - Ebola Screening: : Patient negative for fever greater than or equal to 101.5 degrees Fahrenheit, and additional compatible Ebola Virus Disease symptoms. Screenin:10 Abuse screen: Denies threats or abuse. Nutritional screening: No deficits noted. rb1 Tuberculosis screening: No symptoms or risk factors identified. Fall Risk None identified. Assessment: 11:10 General: See triage assessment. rb1 11:10 Derm: Skin pt. has abrasions on her right thigh and has two holes on the right forearm rb1 from the dog bite. Skin is pink, warm \T\ dry. 12:10 Reassessment: Called [facility] to report the dog bite. Bite occurred in [address] at [address] [place] [address]. Dog vaccinations are unknown. All questions asked and answered. Event # 2018 - [id number]. 13:00 Reassessment: Patient appears in no apparent distress at this time. Patient and/or rb1 family updated on plan of care and expected duration. Pain level reassessed. Patient is alert, oriented x 3, equal unlabored respirations, skin warm/dry/pink. 13:20 Reassessment: No signs and symptoms of adverse reaction to the medications. rb1 13:33 Reassessment: Patient appears in no apparent distress at this time. No changes from rb1 previously documented assessment. Family at bedside. Vital Signs: 11:10 BP 132 / 67; Pulse 71; Resp 17; Temp 98.1(O); Pulse Ox 98% on R/A; Weight 86.64 kg (R); rb1 Height 5 ft. 6 in. (167.64 cm) (R); Pain 4/10; 12:08 BP 133 / 65; Pulse 68; Resp 18; Pulse Ox 99% on R/A; rb1 13:08 BP 136 / 63; Pulse 60; Resp 17; Pulse Ox 100% on R/A; Pain 2/10; rb1 11:10 Body Mass Index 30.83 (86.64 kg, 167.64 cm) rb1 ED Course: 10:32 Patient arrived in ED. sb2 10:32 Jeffery Haines MD is Private Physician. sb2 11:06 Rafael Mckinney PA is PHCP. jmm 11:06 Lionel Berg MD is Attending Physician. jmm 11:09 Brenda Ramirez, BUSHRA is Primary Nurse. rb1 11:10 Arm band placed on left wrist. rb1 11:10 Patient has correct armband on for positive identification. Bed in low position. Call rb1 light in reach. Side rails up X 1. Pulse ox on. NIBP on. 12:05 Triage completed. rb1 12:33 Forearm Left XRAY In Process Unspecified. EDMS 12:34 X-ray completed. Portable x-ray completed in exam room. Patient tolerated procedure la2 well. 12:45 Jeffery Haines MD is Referral Physician. m 13:52 No provider procedures requiring assistance completed. Patient did not have IV access rb1 during this emergency room visit. Administered Medications: 12:00 Drug: Augmentin 875 mg Route: PO; rb1 12:30 Follow up: Response: No adverse reaction rb1 12:00 Drug: Tetanus-Diphtheria Toxoid Adult 0.5 ml {Public Health Technologist: [employer]. Exp: rb1 03/11/2020. Lot #: [id number]. } Route: IM; Site: left deltoid; 12:15 Follow up: Response: No adverse reaction rb1 13:09 Drug: Pepcid 20 mg Route: PO; rb1 13:42 Follow up: Response: No adverse reaction rb1 13:20 Drug: Dexamethasone 10 mg Route: IM; Site: right gluteus; iw 13:50 Follow up: Response: No adverse reaction rb1 Outcome: 12:46 Discharge ordered by MD. jmm 13:52 Patient left the ED. rb1 13:52 Discharged to home ambulatory, with family. rb1 13:52 Condition: stable 13:52 Discharge instructions given to patient, Instructed on discharge instructions, follow up and referral plans. medication usage, Demonstrated understanding of instructions, follow-up care, medications, Prescriptions given X 1. Signatures: Dispatcher [employer] Rafael Ch PA PA jmm Williams, Irene, RN RN iw Barber, Rebecca, RN RN Cindy Guzman Sheri sb2
--- NOTE | 2018-02-28 12:47 | RAD REPORT ---
EXAM DESCRIPTION: RAD - Forearm Left - 02/28/2018 12:33 pm CLINICAL HISTORY: ANIMAL BITE COMPARISON: No comparisons FINDINGS: Diffuse osteopenia is seen. No fracture, dislocation or radiopaque foreign body. Radiocarp al joint arthritic changes are present.
[2018-02-28] MEDS ORDERED: DEXAMETHASONE 4 MG/ML VIAL ONE ×2 (13:08→13:21)
[2018-02-28] MEDS ORDERED: FAMOTIDINE 20 MG TAB ONE (13:09)
[2018-02-28 14:00] VITALS: BP 132/67; TEMP 98.1; O2SAT 98
== END 2018-02-28 13:52 | disposition home or self-care (01) ==
LOC: ER 10:31
DX: S51.851A Open bite of right forearm, initial encounter (principal); S71.151A Open bite, right thigh, initial encounter; W54.0XXA Bitten by dog, initial encounter; Y93.K9 Activity, other involving animal care; Y92.009 Unspecified place in unspecified non-institutional (private) residence as the place of occurrence of the external cause; E11.9 Type 2 diabetes mellitus without complications; K21.9 Gastro-esophageal reflux disease without esophagitis; E78.5 Hyperlipidemia, unspecified; Z23 Encounter for immunization; I10 Essential (primary) hypertension; I25.2 Old myocardial infarction; Z95.5 Presence of coronary angioplasty implant and graft; Z79.82 Long term (current) use of aspirin; Z88.1 Allergy status to other antibiotic agents; Z88.0 Allergy status to penicillin
CPT/HCPCS: 90714; 96372; 99284

== ENCOUNTER 2019-12-04 12:20 | Emergency (ER) | payer OTHER, MEDICARE ==
--- OUTSIDE RECORDS SUMMARY | 2019-12-04 12:22 | XMS REPORT | Summary of Care ---
:1945 Author Organization [facility] - Health Address [address] [place] [address] Care Team Providers Name Role Phone Vahe Hainesesh Primary Care Provider Encounter Details Date Type Department Care Team Description 08/05/2019 Orders Only [facility] Doctor Unassigned, No [address] [facility] [address] [address] [place] [address] Allergies Active Allergy Reactions Severity Noted Date Comments Penicillins Rash 09/16/2018 Sulfa (Sulfonamide Antibiotics) Unknown - See comments 09/17/2018 documented as of this encounter (statuses as of 10/13/2019) Medications Medication Sig Dispensed Refills Start Date End Date Status gabapentin 600 mg tablet Take 600 mg by 0 Active mouth 3 (three) times daily. metoprolol succinate XL Take 25 mg by 0 Active 25 mg 24 hr tablet mouth daily. clopidogrel 75 mg tablet Take 75 mg by 0 Active mouth daily. atorvastatin 80 mg Take 80 mg by 0 Active tablet mouth at bedtime. glimepiride 4 mg tablet Take 4 mg by 0 Active mouth daily with breakfast. losartan 100 mg tablet Take 100 mg by 0 Active mouth daily. empagliflozin Take by mouth. 0 Active (JARDIANCE) 10 mg Tab aspirin 325 mg tablet Take 325 mg by 0 Active mouth daily. documented as of this encounter (statuses as of 10/13/2019) Active Problems Not on filedocumented as of this encounter (statuses as of 10/13/2019) Social History Tobacco Use Types Packs/Day Years Used Date Never Smoker Smokeless Tobacco: Never Used Sex Assigned at Date Recorded Not on file Job Start Date Occupation Industry Not on file Not on file Not on file Travel History Travel Start Travel End No recent travel history available. documented as of this encounter Last Filed Vital Signs Not on filedocumented in this encounter Plan of Treatment Health Maintenance Due Date Last Done Comments HEPATITIS C (HCV) SCREEN 1945 DTaP,Tdap,and Td Vaccines (1 - Tdap) 1965 Breast Cancer Screening (MAMMOGRAM) 1986 COLONOSCOPY 1996 Zoster Recombinant Vaccine (SHINGRIX) (1 of 2) 1996 Medicare Wellness Visit 2011 Osteoporosis Screening 2011 PNEUMOCOCCAL VACCINES 65+ (1 of 2 - PCV13) 2011 INFLUENZA VACCINE (#1) 2019 documented as of this encounter Implants Implanted Type Area Advance Seal Delivery System Maintainer Device Shelf Model / Serial Identifier Expiration / Lot Date Lens, Esteban #[id number] - Sna LENS Left: Eye Esteban /06/2022 [id number] / Implanted: Qty: 1 on 09/17/2018 by Fernando Castellano MD at [facility] N A / [id number] documented as of this encounter Procedures Procedure Name Priority Date/Time Associated Diagnosis Comme nts AUTHORIZATION FOR RELEASE Routine 08/05/2019 12:01 AM OF [employer] FINANCIAL SERVICES SPECIALIST documented in this encounter Results Not on filedocumented in this encounter Insurance Payer Benefit Plan / Subscriber ID Effective Phone Address T ype Group Dates MEDICARE MEDICARE PART xxxxxxxxxxx 2011-Pre [phone] [address] edicare A & B sent [id number] LUIS ANGEL MIRZA [id number] [facility] [id number] 2018-Pre [address] Medic are HEALTHCARE HEALTHCARE sent [id number] Supplement MEDICARE [place] SUPPLEMENT LUIS ANGEL HOYOS [id number] documented as of this encounter
--- OUTSIDE RECORDS SUMMARY | 2019-12-04 12:22 | XMS REPORT | Continuity of Care Document ---
:1945 Author Organization [facility] t Address [address] [place] [address] Care Team Providers Name Role Phone Doctor Unassigned, Name Attending Clinician Unavailable Problems This patient has no known problems. Allergies, Adverse Reactions, Alerts This patient has no known allergies or adverse reactions. Medications This patient has no known medications. Procedures This patient has no known procedures. Encounters Start End Encounter Admission Attending Care Care Encounter Source Date/Time Date/Time Type Type Clinicians Facility Department ID 2019-08-05 2019-08-05 Orders Doctor IFTIKHAR [id number] 00:00:00 00:00:00 Only UnassKARIN jaramillo [id number] [facility] [id number] Results This patient has no known results.
[2019-12-04 13:26] LABS: ALT/SGPT 35 U/L (12-78); AST/SGOT 32 U/L (15-37); Albumin 3.7 g/dL (3.4-5.0); Alkaline Phosphatase 80 U/L (45-117); BUN Blood Urea Nitrogen 21 mg/dL (7-18); Bicarbonate 26 mmol/L (21-32); Bilirubin Direct 0.1 mg/dL (0-0.2); Bilirubin Total 0.5 mg/dL (0.2-1.0); Glucose Level 148 mg/dL (74-106); Magnesium 1.7 mg/dL (1.8-2.4); NT PRO-BNP 391 pg/mL (<125); Potassium 4.1 mmol/L (3.5-5.1); Protein, Total 7.3 g/dL (6.4-8.2); Sodium Level 139 mmol/L (136-145); Troponin (Emerg Dept Use Only) < 0.02 ng/mL (0.0-0.045)
[2019-12-04 13:27] LABS: Absolute Lymphocytes (CBC) 0.7 K/uL (0.7-4.9); Basophils % 0.6 % (0-1.3); Hematocrit 41.9 % (36.0-45.0); Lymphocytes % 27.7 % (15.3-44.8)
--- NOTE | 2019-12-04 13:28 | RAD REPORT ---
EXAM DESCRIPTION: Yoandy Single View12/04/2019 1:09 pm CLINICAL HISTORY: sob COMPARISON: 2018 FINDINGS: The lungs appear clear of acute infiltrate. The heart is normal size IMPRESSION: No acute abnormalities displayed
[2019-12-04 13:29] LABS: Urine Blood 1+ (NEG); Urine Glucose NEGATIVE (NEG); Urine Protein 2+ (NEG); Urine Specific Gravity 1.025 (1.005-1.030)
[2019-12-04] MEDS ORDERED: MAGNESIUM SULFATE 1 gm IVPB 1 GM/100 ML BAG IV ONE (14:00)
[2019-12-04] MEDS ORDERED: NA CHLORIDE 0.9% 500 ML ONE (14:06)
--- NOTE | 2019-12-04 14:24 | RAD REPORT ---
EXAM DESCRIPTION: CT - Head Brain Wo Cont - 12/04/2019 2:11 pm CLINICAL HISTORY: dizziness COMPARISON: None. TECHNIQUE: Computed axial tomography of the head was obtained. IV contrast was not requested. All CT scans are performed using dose optimization technique as appropriate and may include automated exposure control or mA/KV adjustment according to patient size. FINDINGS: An intracranial bleed is not seen . The ventricles are normal in caliber. No extra-axial fluid collection is noted. Fluid within the sinuses/ mastoids is not seen. IMPRESSION: No acute intracranial abnormality is seen. If patient's symptoms persist MRI of the bra in would be recommended.
[2019-12-04 15:21] LABS: Blood Morphology Comment NOT SEEN (NOT SEEN); Platelet Estimate DECR
--- NOTE | 2019-12-04 15:44 | EDPHYS ---
Physician Documentation [facility] Name: Karoline Paredes Age: 74 yrs Sex: Female : 1945 Arrival Date: 12/04/2019 Time: 12:22 Bed 6 Private MD: Jeffery Ramirez V ED Physician Stalin Wagner HPI: 12/03 13:53 This 74 yrs old Female presents to ER via Ambulatory with complaints of misha Breathing Difficulty, Headache. 13:53 The patient has shortness of breath at rest. Onset: The symptoms/episode began/occurred misha 3 day(s) ago. The patient's shortness of breath is aggravated by nothing, is alleviated by nothing. Historical: - Allergies: 12:35 Bactrim; jl7 12:35 PENICILLINS; jl7 - Home Meds: 12:35 Aspirin Oral [Active]; gabapentin Oral [Active]; Glyburide Oral [Active]; pantoprazole jl7 Oral [Active]; Plavix Oral [Active]; atorvastatin 80 mg oral tab 1 tab once daily [Active]; magnesium oxide 400 mg Oral cap [Active]; metoprolol tartrate 25 mg Oral tab 1 tab 2 times per day [Active]; venlafaxine 37.5 mg oral cp24 1 cap once daily [Active]; losartan 100 mg oral tab 1 tab once daily [Active]; - PMHx: 12:35 Diabetes - NIDDM; GERD; Hyperlipidemia; Hypertension; Myocardial infarction; jl7 - PSHx: 12:35 Cholecystectomy; Tubal ligation; Heart stents; jl7 - Immunization history:: Adult Immunizations up to date. - Social history:: Smoking status: Patient denies any tobacco usage or history of. ROS: 13:54 Constitutional: Negative for fever, chills, and weight loss, Eyes: Negative for injury, misha pain, redness, and discharge, ENT: Negative for injury, pain, and discharge, Neck: Negative for injury, pain, and swelling, Cardiovascular: Negative for chest pain, palpitations, and edema, Abdomen/GI: Negative for abdominal pain, nausea, vomiting, diarrhea, and constipation, Back: Negative for injury and pain, : Negative for injury, bleeding, discharge, and swelling, MS/Extremity: Negative for injury and deformity, Skin: Negative for injury, rash, and discoloration, Neuro: Negative for headache, weakness, numbness, tingling, and seizure, Psych: Negative for depression, anxiety, suicide ideation, homicidal ideation, and hallucinations, Allergy/Immunology: Negative for hives, rash, and allergies, Endocrine: Negative for neck swelling, polydipsia, polyuria, polyphagia, and marked weight changes, Hematologic/Lymphatic: Negative for swollen nodes, abnormal bleeding, and unusual bruising. 13:54 Respiratory: Positive for shortness of breath, at rest. Exam: 13:54 Constitutional: This is a well developed, well nourished patient who is awake, alert, misha and in no acute distress. Head/Face: Normocephalic, atraumatic. Eyes: Pupils equal round and reactive to light, extra-ocular motions intact. Lids and lashes normal. Conjunctiva and sclera are non-icteric and not injected. Cornea within normal limits. Periorbital areas with no swelling, redness, or edema. ENT: Nares patent. No nasal discharge, no septal abnormalities noted. Tympanic membranes are normal and external auditory canals are clear. Oropharynx with no redness, swelling, or masses, exudates, or evidence of obstruction, uvula midline. Mucous membranes moist. Neck: Trachea midline, no thyromegaly or masses palpated, and no cervical lymphadenopathy. Supple, full range of motion without nuchal rigidity, or vertebral point tenderness. No Meningismus. Chest/axilla: Normal chest wall appearance and motion. Nontender with no deformity. No lesions are appreciated. Cardiovascular: Regular rate and rhythm with a normal S1 and S2. No gallops, murmurs, or rubs. Normal PMI, no JVD. No pulse deficits. Respiratory: Lungs have equal breath sounds bilaterally, clear to auscultation and percussion. No rales, rhonchi or wheezes noted. No increased work of breathing, no retractions or nasal flaring. Abdomen/GI: Soft, non-tender, with normal bowel sounds. No distension or tympany. No guarding or rebound. No evidence of tenderness throughout. Back: No spinal tenderness. No costovertebral tenderness. Full range of motion. Female : Normal external genitalia. Skin: Warm, dry with normal turgor. Normal color with no rashes, no lesions, and no evidence of cellulitis. MS/ Extremity: Pulses equal, no cyanosis. Neurovascular intact. Full, normal range of motion. Neuro: Awake and alert, GCS 15, oriented to person, place, time, and situation. Cranial nerves II-XII grossly intact. Motor strength 5/5 in all extremities. Sensory grossly intact. Cerebellar exam normal. Normal gait. Psych: Awake, alert, with orientation to person, place and time. Behavior, mood, and affect are within normal limits. 13:54 Musculoskeletal/extremity: DVT Exam: No signs of deep vein thrombosis. no pain, no swelling, no tenderness, negative Homans' sign noted on exam, no appreciated bluish discoloration, no erythema, no increased warmth. 13:57 ECG was reviewed by the Attending Physician. [facility] Vital Signs: 12:29 BP 125 / 66; Pulse 76; Resp 15; Temp 98.2; Pulse Ox 99% ; Weight 106.59 kg; Height 5 jl7 ft. 6 in. (167.64 cm); Pain 0/10; 13:00 BP 110 / 72; Pulse 66; Resp 17; Pulse Ox 98% ; bp 13:56 BP 112 / 60; Pulse 58; Resp 13; Pulse Ox 98% ; bp 14:52 BP 127 / 77; Pulse 61; Resp 17; Temp 97.6(TE); Pulse Ox 100% on R/A; mh5 12:29 Body Mass Index 37.93 (106.59 kg, 167.64 cm) jl7 [place] Coma Score: 15:40 Eye Response: spontaneous(4). Verbal Response: oriented(5). Motor Response: obeys [facility] commands(6). Total: 15. MDM: 12:36 Patient medically screened. [facility] 13:55 Data reviewed: vital signs, nurses notes, lab test result(s), EKG, radiologic studies, [facility] CT scan, plain films. 15:40 Differential diagnosis: Anemia Bronchitis hypertensive headache, sinusitis, temporal misha arteritis, pneumonia, pulmonary edema, Unstable Angina. Antibiotic administration: Not indicated. The patient's Wells Deep Vein Thrombosis Score was calculated as follows: Total Score: 0-2 Pts- Low Risk. The patient's pulmonary embolism risk score was calculated as follows: Total Score: 0-2 points. This patient was found to be at low risk for a pulmonary embolism by using the Well's assessment criteria. Immunization status: Pneumococcal vaccine: Influenza vaccine: Data interpreted: monitor car operator: rate is 61 beats/min, Pulse oximetry: on room air is 100 %. Test interpretation: by ED physician or midlevel provider: ECG, plain radiologic studies. ED course: pt labs and all studies discussed, dw dr ramirez , wants to send home and will see on Friday in the office. 12/03 12:48 Order name: Basic Metabolic Panel; Complete Time: 13:44 [facility] 12/03 12:48 Order name: CBC with Diff; Complete Time: 15:34 [facility] 12/03 12:48 Order name: LFT's; Complete Time: 13:44 [facility] 12/03 12:48 Order name: Magnesium; Complete Time: 13:44 [facility] 12/03 12:48 Order name: NT PRO-BNP; Complete Time: 13:44 [facility] 12/03 12:48 Order name: Troponin (emerg Dept Use Only); Complete Time: 13:44 [facility] 12/03 12:48 Order name: XRAY Chest (1 view); Complete Time: 13:44 [facility] 12/03 12:48 Order name: EKG; Complete Time: 12:49 [facility] 12/03 13:24 Order name: Urine Dipstick--Ancillary (enter results); Complete Time: 13:44 12/03 13:44 Order name: CT Head Brain wo Cont; Complete Time: 14:38 [facility] 12/03 14:45 Order name: D-Dimer; Complete Time: 15:34 [facility] 12/03 15:21 Order name: Manual Differential; Complete Time: 15:34 [facility] 12/03 12:48 Order name: Cardiac monitoring; Complete Time: 13:03 [facility] 12/03 12:48 Order name: EKG - Nurse/Tech; Complete Time: 13:03 [facility] 12/03 12:48 Order name: IV Saline Lock; Complete Time: 13:03 [facility] 12/03 12:48 Order name: Labs collected and sent; Complete Time: 13:03 [facility] 12/03 12:48 Order name: O2 Per Protocol; Complete Time: 12:52 [facility] 12/03 12:48 Order name: O2 Sat Monitoring; Complete Time: 12:51 [facility] 12/03 12:48 Order name: Urine Dipstick-Ancillary (obtain specimen); Complete Time: 13:19 [facility] EC:57 Rate is 60 beats/min. Rhythm is regular. QRS [place] is Normal. HI interval is normal. QRS misha interval is normal. QT interval is normal. No Q waves. T waves are Normal. No ST changes noted. Clinical impression: Normal ECG and No evidence of ischemia. Interpreted by me. Reviewed by me. Administered Medications: 13:55 Drug: Magnesium Sulfate 1 grams Route: IVPB; Infused Over: 1 hrs; Site: left forearm; bp 13:55 Drug: NS 0.9% 500 ml Route: IV; Rate: bolus; Site: left forearm; bp Disposition: 12/04/19 15:44 Discharged to Home. Impression: Dyspnea, Weakness, Hypomagnesemia, Unspecified kidney failure. - Condition is Stable. - Discharge Instructions: Type 2 Diabetes Mellitus, Diagnosis, Adult, Hypomagnesemia, Shortness of Breath, Weakness, Shortness of Breath, Skvt-jf-Pyqd, Weakness, Frek-fa-Sobv, Chronic Kidney Disease, Adult, Ewcg-ba-Vmbz, Type 2 Diabetes Mellitus, Diagnosis, Adult, Ksmb-sc-Zslb, Type 2 Diabetes Mellitus, Self Care, Adult, Type 2 Diabetes Mellitus, Self Care, Adult, Hhpd-cb-Tjrl. - Medication Reconciliation Form, Thank You Letter, Antibiotic Education, Prescription Opioid Use form. - Follow up: Jeffery Ramirez MD; When: 1 - 2 days; Reason: Recheck today's complaints, Continuance of care, Re-evaluation by your physician. - Problem is new. - Symptoms have improved. Signatures: Dispatcher [employer] EDNV Stalin Wagner MD MD cha Leal, Jahala RN RN jl7 Fausto Neumann RN RN bp Corrections: (The following items were deleted from the chart) 15:45 15:44 12/04/2019 15:44 Discharged to Home. Impression: Dyspnea; Weakness; misha Hypomagnesemia. Condition is Stable. Forms are Medication Reconciliation Form, Thank You Letter, Antibiotic Education, Prescription Opioid Use. Follow up: Jeffery Ramirez; When: 1 - 2 days; Reason: Recheck today's complaints, Continuance of care, Re-evaluation by your physician. Problem is new. Symptoms have improved. misha 16:42 15:45 12/04/2019 15:44 Discharged to Home. Impression: Dyspnea; Weakness; jl7 Hypomagnesemia; Unspecified kidney failure. Condition is Stable. Discharge Instructions: Type 2 Diabetes Mellitus, Diagnosis, Adult, Hypomagnesemia, Shortness of Breath, Weakness, Shortness of Breath, Vdww-sg-Gsow, Weakness, Diir-tj-Htcl, Type 2 Diabetes Mellitus, Diagnosis, Adult, Uggu-zm-Auoy, Type 2 Diabetes Mellitus, Self Care, Adult, Type 2 Diabetes Mellitus, Self Care, Adult, Ljpm-bj-Nytf. Forms are Medication Reconciliation Form, Thank You Letter, Antibiotic Education, Prescription Opioid Use. Follow up: Jeffery Ramirez; When: 1 - 2 days; Reason: Recheck today's complaints, Continuance of care, Re-evaluation by your physician. Problem is new. Symptoms have improved. misha
--- NOTE | 2019-12-04 15:44 | ER ---
Nurse's Notes [facility] Name: Karoline Paredes Age: 74 yrs Sex: Female : 1945 Arrival Date: 12/04/2019 Time: 12:22 Bed 6 Private MD: Jeffery Haines V Diagnosis: Dyspnea;Weakness;Hypomagnesemia;Unspecified kidney failure Presentation: 12/03 12:29 Chief complaint: Patient states: Generalized weakness x 3 or 4 days, shortness of jl7 breath x 2 days, denies urinary symptoms, denies N/V/D, states "I just don't know, I just don't feel right.". Coronavirus screen: Proceed with normal triage. Patient denies a cough. Patient denies shortness of breath or difficulty breathing. Patient denies measured and/or subjective temperature greater than 100.4F prior to today's visit. Patient denies travel on a cruise ship or to a country the [facility] currently lists as an affected area. Patient denies contact with known and/or suspected case of COVID-19. Ebola Screen: No symptoms or risks identified at this time. Initial Sepsis Screen: Does the patient meet any 2 criteria? No. Patient's initial sepsis screen is negative. Does the patient have a suspected source of infection? No. Patient's initial sepsis screen is negative. Risk Assessment: Do you want to hurt yourself or someone else? Patient reports no desire to harm self or others. Onset of symptoms was December 01, 2019. Care prior to arrival: None. 12:29 Method Of Arrival: Ambulatory jl7 12:29 Acuity: JOVITA 3 jl7 Triage Assessment: 12:35 General: Appears in no apparent distress. uncomfortable, ill, Behavior is calm, jl7 cooperative, appropriate for age. Pain: Denies pain. Respiratory: Reports shortness of breath Airway is patent Respiratory effort is even, unlabored, Respiratory pattern is regular, symmetrical, Onset: The symptoms/episode began/occurred gradually, the patient has mild shortness of breath. Historical: - Allergies: 12:35 Bactrim; jl7 12:35 PENICILLINS; jl7 - Home Meds: 12:35 Aspirin Oral [Active]; gabapentin Oral [Active]; Glyburide Oral [Active]; pantoprazole jl7 Oral [Active]; Plavix Oral [Active]; atorvastatin 80 mg oral tab 1 tab once daily [Active]; magnesium oxide 400 mg Oral cap [Active]; metoprolol tartrate 25 mg Oral tab 1 tab 2 times per day [Active]; venlafaxine 37.5 mg oral cp24 1 cap once daily [Active]; losartan 100 mg oral tab 1 tab once daily [Active]; - PMHx: 12:35 Diabetes - NIDDM; GERD; Hyperlipidemia; Hypertension; Myocardial infarction; jl7 - PSHx: 12:35 Cholecystectomy; Tubal ligation; Heart stents; jl7 - Immunization history:: Adult Immunizations up to date. - Social history:: Smoking status: Patient denies any tobacco usage or history of. Screenin:40 Abuse screen: Denies threats or abuse. Denies injuries from another. Nutritional bp screening: No deficits noted. Tuberculosis screening: No symptoms or risk factors identified. Fall Risk None identified. Assessment: 12:40 General: SEE TRIAGE NOTE. Cardiovascular: Rhythm is sinus rhythm. Respiratory: Airway bp is patent Respiratory effort is even, unlabored, Breath sounds are coarse bilaterally. 13:56 Reassessment: IVF INFUSING. VS STABLE ON MONITOR. CT HEAD PENDING. bp Vital Signs: 12:29 BP 125 / 66; Pulse 76; Resp 15; Temp 98.2; Pulse Ox 99% ; Weight 106.59 kg; Height 5 jl7 ft. 6 in. (167.64 cm); Pain 0/10; 13:00 BP 110 / 72; Pulse 66; Resp 17; Pulse Ox 98% ; bp 13:56 BP 112 / 60; Pulse 58; Resp 13; Pulse Ox 98% ; bp 14:52 BP 127 / 77; Pulse 61; Resp 17; Temp 97.6(TE); Pulse Ox 100% on R/A; mh5 12:29 Body Mass Index 37.93 (106.59 kg, 167.64 cm) jl7 [place] Coma Score: 15:40 Eye Response: spontaneous(4). Verbal Response: oriented(5). Motor Response: obeys misha commands(6). Total: 15. ED Course: 12:22 Patient arrived in ED. ag5 12:22 Jeffery Haines MD is Private Physician. ag5 12:27 Stalin Wagner MD is Attending Physician. misha 12:32 Triage completed. jl7 12:35 Arm band placed on right wrist. jl7 12:40 Patient has correct armband on for positive identification. Bed in low position. Call bp light in reach. Side rails up X2. 12:46 Fausto Neumann, RN is Primary Nurse. bp 13:00 Inserted saline lock: 22 gauge in left forearm, using aseptic technique. Blood bp collected. 13:09 XRAY Chest (1 view) In Process Unspecified. EDMS 13:19 Warm blanket given. obedience trainer on. Pulse ox on. NIBP on. [facility] 13:19 Urine collected: clean catch specimen, clear. [facility] 13:19 EKG done, by ED staff, reviewed by Stalin Wagner MD. [facility] 14:11 CT Head Brain wo Cont In Process Unspecified. EDMS 15:42 Jeffery Haines MD is Referral Physician. [facility] 16:39 IV discontinued, Pressure dressing applied. [facility] 16:41 No provider procedures requiring assistance completed. [facility] 16:41 IV discontinued, intact, bleeding controlled, No redness/swelling at site. Pressure [facility] dressing applied. Administered Medications: 13:55 Drug: Magnesium Sulfate 1 grams Route: IVPB; Infused Over: 1 hrs; Site: left forearm; bp 13:55 Drug: NS 0.9% 500 ml Route: IV; Rate: bolus; Site: left forearm; bp Outcome: 15:44 Discharge ordered by . [facility] 16:41 Discharged to home ambulatory. [facility] 16:41 Condition: stable 16:41 Discharge instructions given to patient, Instructed on discharge instructions, follow up and referral plans. Demonstrated understanding of instructions, follow-up care. 16:42 Patient left the ED. [facility] Signatures: Dispatcher [employer] EDStalin Salazar MD MD cha Martinez, Maria [facility] Chevy Fraser, BUSHRA RN Fausto Hernandez, RN RN Manpreet Gomez [facility]
[2019-12-04 16:52] VITALS: BP 127/77; TEMP 97.6; O2SAT 100
== END 2019-12-04 16:42 | disposition home or self-care (01) ==
LOC: ER 12:20
DX: N17.9 Acute kidney failure, unspecified (principal); E83.42 Hypomagnesemia; R06.00 Dyspnea, unspecified; Z88.0 Allergy status to penicillin; K21.9 Gastro-esophageal reflux disease without esophagitis; E11.9 Type 2 diabetes mellitus without complications; E78.5 Hyperlipidemia, unspecified; I10 Essential (primary) hypertension; I25.2 Old myocardial infarction; Z95.5 Presence of coronary angioplasty implant and graft
CPT/HCPCS: 93005; 85025; 80048; 36415; 83735; 85379; 80076; 81003; 84484; 83880; 70450; 71045; 96374; 99284; J3475; J7040

== ENCOUNTER 2019-12-08 06:33 | Emergency (ER) | payer OTHER, MEDICARE ==
--- OUTSIDE RECORDS SUMMARY | 2019-12-08 06:35 | XMS REPORT | Continuity of Care Document ---
:1945 Author Organization [facility] t Address [address] [place] [address] Care Team Providers Name Role Phone Doctor [...] ID 2019-08-05 2019-08-05 Orders Doctor IFTIKHAR [id number] 00:00:00 00:00:00 Only UnassKARIN jaramillo [id number] [place] [facility] [id number] Results This patient has no known results.
[2019-12-08] MEDS ORDERED: ONDANSETRON 4 MG/2 ML VIAL ONE ×2 (07:44→10:19)
[2019-12-08] MEDS ORDERED: NA CHLORIDE 0.9% 1,000 ML ONE (07:44)
[2019-12-08 08:26] LABS: Absolute Lymphocytes (CBC) 0.7 K/uL (0.7-4.9); Basophils % 0.5 % (0-1.3); Hematocrit 41.1 % (36.0-45.0); Lymphocytes % 20.7 % (15.3-44.8); MPV 8.6 fL (7.6-11.3); RBC Red Blood Cell Count 4.64 M/uL (3.86-4.86)
[2019-12-08 08:31] LABS: Protime INR 1.03
[2019-12-08 08:43] LABS: Urine Blood TRACE (NEG); Urine Glucose 2+ (NEG); Urine Protein 2+ (NEG)
--- NOTE | 2019-12-08 08:50 | RAD REPORT ---
EXAM DESCRIPTION: RAD - Chest Single View - 12/08/2019 7:34 am CLINICAL HISTORY: COUGH Chest pain. COMPARISON: Chest Single View dated 12/04/2019; Chest Single View dated 01/30/2018; Chest Single View dated 07/25/2017; Chest Single View dated 04/22/2017 FINDINGS: Portable technique limits examination quality. Mildly prominent interstitial lung markings are seen. No focal consolidation typical of bacterial pne umonia evident. The heart is normal in size. No displaced fractures.
[2019-12-08 08:54] LABS: ALT/SGPT 35 U/L (12-78); AST/SGOT 37 U/L (15-37); Albumin 3.3 g/dL (3.4-5.0); Alkaline Phosphatase 84 U/L (45-117); BUN Blood Urea Nitrogen 21 mg/dL (7-18); Bicarbonate 24 mmol/L (21-32); Bilirubin Direct 0.1 mg/dL (0-0.2); Bilirubin Total 0.9 mg/dL (0.2-1.0); Glucose Level 228 mg/dL (74-106); Magnesium 2.2 mg/dL (1.8-2.4); NT PRO-BNP 270 pg/mL (<125); Potassium 4.2 mmol/L (3.5-5.1); Protein, Total 6.9 g/dL (6.4-8.2); Sodium Level 138 mmol/L (136-145); Troponin (Emerg Dept Use Only) < 0.02 ng/mL (0.0-0.045)
[2019-12-08 08:57] LABS: Urine Bacteria >50 /HPF (<20); Urine Culture Reflex Order REFLEXED; Urine RBC <5 /HPF (NONE SEEN)
--- NOTE | 2019-12-08 13:46 | ER ---
Nurse's Notes [facility] Name: Karoline Paredes Age: 74 yrs Sex: Female : 1945 Arrival Date: 12/08/2019 Time: 06:35 Bed 6 Private MD: Diagnosis: Acute upper respiratory infection, unspecified;Diarrhea, unspecified;Nausea and vomiting Presentation: 12/07 06:36 Coronavirus screen: Surgical mask placed on patient. Patient moved to private room, sg placed in contact and droplet isolation with eye protection until further assessment. Patient reports a cough. Patient reports a measured and/or subjective temperature greater than 100.4F. Ebola Screen: Patient negative for fever greater than or equal to 101.5 degrees Fahrenheit, and additional compatible Ebola Virus Disease symptoms Patient denies exposure to infectious person. Patient denies travel to an Ebola-affected area in the 21 days before illness onset. No symptoms or risks identified at this time. Initial Sepsis Screen: Does the patient meet any 2 criteria? No. Patient's initial sepsis screen is negative. Does the patient have a suspected source of infection? No. Patient's initial sepsis screen is negative. Risk Assessment: Do you want to hurt yourself or someone else? Patient reports no desire to harm self or others. Onset of symptoms was December 08, 2019. Care prior to arrival: None. Transition of care: patient was not received from another setting of care. 06:36 Acuity: JOVITA 3 sg 06:36 Method Of Arrival: Ambulatory sg 06:49 Chief complaint: Patient states: Reports she was seen on Friday for cough and fever. ea Pt reports she was diagnosed with low magnesium and was sent home. Family states the patients symptoms worsened and now she has diarrhea. Triage Assessment: 06:54 General: Appears uncomfortable, Behavior is appropriate for age. Pain: Denies pain. ea Respiratory: Airway is patent Respiratory effort is even, unlabored, Respiratory pattern is regular, symmetrical, Parent/caregiver reports the patient having cough that is. Historical: - Allergies: 06:36 Bactrim; sg 06:36 PENICILLINS; sg - Home Meds: 09:32 Aspirin Oral [Active]; atorvastatin 80 mg Oral tab 1 tab once daily [Active]; jl7 gabapentin Oral [Active]; Glyburide Oral [Active]; lisinopril Oral [Active]; losartan 100 mg Oral tab 1 tab once daily [Active]; magnesium oxide 400 mg Oral cap [Active]; metoprolol tartrate 25 mg Oral tab 1 tab 2 times per day [Active]; pantoprazole Oral [Active]; Plavix Oral [Active]; venlafaxine 37.5 mg Oral cp24 1 cap once daily [Active]; - PMHx: 06:36 Diabetes - NIDDM; GERD; Hyperlipidemia; Hypertension; Myocardial infarction; sg - PSHx: 06:36 Cholecystectomy; Tubal ligation; Heart stents; sg - Immunization history:: Adult Immunizations up to date. - Social history:: Smoking status: Patient denies any tobacco usage or history of. Screenin:52 Abuse screen: Denies threats or abuse. Nutritional screening: No deficits noted. ea Tuberculosis screening: No symptoms or risk factors identified. Fall Risk None identified. Assessment: 08:00 General: Appears in no apparent distress. uncomfortable, Behavior is cooperative, jl7 agitated. Pain: Denies pain. Neuro: Level of Consciousness is awake, alert, obeys commands, Oriented to person, place, time, situation. Cardiovascular: Patient's skin is warm and dry. Respiratory: Airway is patent Respiratory effort is even, unlabored, Respiratory pattern is regular, symmetrical. GI: Reports diarrhea, nausea, vomiting. : Urine is clear. Derm: Skin is pink, warm \T\ dry. 09:56 Reassessment: Provided pt with socks and grape juice for PO challenge. Daughter remains jl7 at bedside. 10:10 Reassessment: Pt reports nausea, vomited x 1, ERP notified, VO for Zofran 4 mg IVP. aa5 10:54 Reassessment: Provide pt with water for PO Challenge. aa5 11:22 Reassessment: Pt ambulated to and from bathroom with steady gate, reports decreased jl7 nausea, is able to keep water down at this time. ERP notified, will continue to monitor for a few more minute to ensure pt is able to keep fluids down. 13:00 Reassessment: Patient appears in no apparent distress at this time. No changes from jl7 previously documented assessment. Patient and/or family updated on plan of care and expected duration. Pain level reassessed. Patient is alert, oriented x 3, equal unlabored respirations, skin warm/dry/pink. Vital Signs: 06:49 BP 127 / 59; Pulse 73; Resp 19; Temp 98.7; Pulse Ox 96% on R/A; Weight 82.1 kg; Height ea 5 ft. 6 in. (167.64 cm); 07:00 BP 119 / 62; Pulse 68; Resp 16; Pulse Ox 96% ; jl7 09:32 BP 117 / 57; Pulse 75; Resp 16; Pulse Ox 100% ; jl7 10:48 BP 122 / 65; Pulse 68; Resp 16; Pulse Ox 100% ; aa5 14:00 BP 143 / 63; Pulse 65; Resp 19; Pulse Ox 100% ; jl7 06:49 Body Mass Index 29.21 (82.10 kg, 167.64 cm) ea ED Course: 06:35 Patient arrived in ED. cl3 06:36 Arm band placed on. sg 06:37 Triage completed. sg 06:42 Stalin Mon PA is PHCP. cp 06:42 Lionel Berg MD is Attending Physician. cp 06:52 Patient has correct armband on for positive identification. Bed in low position. Call ea light in reach. Side rails up X2. 07:03 Attending Physician role handed off by Lionel Berg MD cp 07:03 Stalin Wagner MD is Attending Physician. cp 07:34 XRAY Chest (1 view) In Process Unspecified. EDMS 07:40 Chevy Fraser, BUSHRA is Primary Nurse. jl7 08:00 conveyor monitor on. Pulse ox on. NIBP on. jl7 08:10 Inserted saline lock: 20 gauge in right forearm, using aseptic technique. Blood jl7 collected. 08:15 Initial lab(s) drawn, by va, sent to lab. First set of blood cultures drawn by va, jl7 Urine collected: clean catch specimen, clear, Flu and/or RSV swab sent to lab. Strep swab sent to lab. COVID-19 swab sent to lab. 10:47 Urine Culture Sent. aa5 10:51 Throat Culture Sent. dm5 13:42 Jeffery Haines MD is Referral Physician. cp 14:16 No provider procedures requiring assistance completed. IV discontinued, intact, jl7 bleeding controlled, No redness/swelling at site. Pressure dressing applied. Administered Medications: 08:10 Drug: Zofran (Ondansetron) 4 mg Route: IVP; Site: right forearm; jl7 09:57 Follow up: Response: No adverse reaction; Nausea is decreased jl7 08:10 Drug: NS 0.9% 500 ml Route: IV; Rate: 500 ml/hr; Site: right forearm; jl7 08:40 Follow up: Response: No adverse reaction; IV Status: Completed infusion; IV Intake: jl7 500ml 10:12 Drug: Zofran (Ondansetron) 4 mg Route: IVP; Site: right antecubital; aa5 10:30 Follow up: Response: No adverse reaction; Nausea is decreased jl7 10:40 Drug: NS 0.9% 500 ml Route: IV; Rate: 500 ml/hr; Site: right forearm; aa5 11:20 Follow up: IV Status: Completed infusion; IV Intake: 500ml jl7 Intake: 08:40 IV: 500ml; Total: 500ml. jl7 11:20 IV: 500ml; Total: 1000ml. jl7 Outcome: 13:45 Discharge ordered by MD. cp 14:16 Discharged to home ambulatory, via wheelchair, with family. jl7 14:16 Condition: stable 14:16 Discharge instructions given to patient, family, Instructed on discharge instructions, follow up and referral plans. medication usage, Demonstrated understanding of instructions, follow-up care, medications, Prescriptions given X 3. 14:17 Patient left the ED. jl7 Addendum: 12/10/2019 17:27 Addendum: Other Pt notified of positive COVID results by Dr. Lozada via telephone. h b 12/12/2019 07:32 Addendum: Culture Results: Positive urine culture. Patient was not prescribed s s antibiotics at discharge. Report given to MARIBEL for further evaluation and then to dam operator for follow up with patient. 09:54 Addendum: Other attempted to call patient. No answer, left . s s Signatures: Dispatcher Med[employer]ika EDLinda Recinos RN RN Moi Ramesh RN Giuliana Mackey RN RN aa5 Randa Tam RN RN ss Page, Corey, PA PA cp Baxter, Heather, RN RN hb Leal, Jahala RN RN jl7 Faustina Hawk RN Karen Ramon ea cl3
--- NOTE | 2019-12-08 13:46 | EDPHYS ---
Physician Documentation [facility] Name: Karoline Paredes Age: 74 yrs Sex: Female : 1945 Arrival Date: 12/08/2019 Time: 06:35 Bed 6 Private MD: ED Physician Stalin Wagner HPI: 12/07 06:55 This 74 yrs old Female presents to ER via Ambulatory with complaints of cp Fever, Cough. 06:55 The patient reports fever, not measured (subjective). cp 06:55 Onset: The symptoms/episode began/occurred 5 day(s) ago. Associated signs and symptoms: cp Pertinent positives: cough, diarrhea, Pertinent negatives: abdominal pain, chest pain, headache, shortness of breath, vomiting. Severity of symptoms: in the emergency department the symptoms are unchanged despite home interventions. Historical: - Allergies: 06:36 Bactrim; sg 06:36 PENICILLINS; sg - Home Meds: 09:32 Aspirin Oral [Active]; atorvastatin 80 mg Oral tab 1 tab once daily [Active]; jl7 gabapentin Oral [Active]; Glyburide Oral [Active]; lisinopril Oral [Active]; losartan 100 mg Oral tab 1 tab once daily [Active]; magnesium oxide 400 mg Oral cap [Active]; metoprolol tartrate 25 mg Oral tab 1 tab 2 times per day [Active]; pantoprazole Oral [Active]; Plavix Oral [Active]; venlafaxine 37.5 mg Oral cp24 1 cap once daily [Active]; - PMHx: 06:36 Diabetes - NIDDM; GERD; Hyperlipidemia; Hypertension; Myocardial infarction; sg - PSHx: 06:36 Cholecystectomy; Tubal ligation; Heart stents; sg - Immunization history:: Adult Immunizations up to date. - Social history:: Smoking status: Patient denies any tobacco usage or history of. ROS: 07:00 Constitutional: Positive for poor PO intake, Negative for body aches, chills, fever. cp 07:00 Eyes: Negative for injury, pain, redness, and discharge. cp 07:00 ENT: Positive for sore throat, Negative for ear pain, difficulty swallowing, hoarseness. 07:00 Cardiovascular: Negative for chest pain, edema. 07:00 Respiratory: Positive for cough, Negative for shortness of breath, wheezing. 07:00 Abdomen/GI: Positive for diarrhea, Negative for abdominal pain, vomiting, constipation, black/tarry stool, rectal bleeding. 07:00 : Negative for urinary symptoms. 07:00 Skin: Negative for cellulitis, rash. 07:00 Neuro: Positive for weakness, Negative for altered mental status, headache. 07:00 All other systems are negative. cp Exam: 07:05 Constitutional: The patient appears in no acute distress, alert, awake, cp non-diaphoretic, non-toxic, well developed, well nourished. 07:05 Head/Face: Normocephalic, atraumatic. cp 07:05 Eyes: Periorbital structures: appear normal, Pupils: equal, round, and reactive to light and accomodation, Extraocular movements: intact throughout, Conjunctiva: normal, no exudate, no injection, Sclera: no appreciated abnormality, Lids and lashes: appear normal, bilaterally. 07:05 ENT: External ear(s): are unremarkable, Nose: is normal, Mouth: Lips: moist, Oral mucosa: moist, Posterior pharynx: is normal, airway is patent, no erythema, no exudate. 07:05 Chest/axilla: Inspection: normal, Palpation: is normal, no crepitus, no tenderness. 07:05 Cardiovascular: Rate: normal, Rhythm: regular, Edema: is not appreciated, JVD: is not appreciated. 07:05 Respiratory: the patient does not display signs of respiratory distress, Respirations: normal, no use of accessory muscles, no retractions, labored breathing, is not present, Breath sounds: are clear throughout, no decreased breath sounds, no stridor, no wheezing. 07:05 Abdomen/GI: Inspection: abdomen appears normal, Bowel sounds: active, all quadrants, Palpation: abdomen is soft and non-tender, in all quadrants. 07:05 Back: pain, is absent, ROM is normal. 07:05 Skin: cellulitis, is not appreciated, no rash present. 07:05 Neuro: Orientation: to person, place \T\ time. Mentation: able to follow commands, Motor: moves all fours, general weakness without focal deficits, Sensation: no obvious gross deficits. 08:10 ECG was reviewed by the Attending Physician. cp Vital Signs: 06:49 BP 127 / 59; Pulse 73; Resp 19; Temp 98.7; Pulse Ox 96% on R/A; Weight 82.1 kg; Height ea 5 ft. 6 in. (167.64 cm); 07:00 BP 119 / 62; Pulse 68; Resp 16; Pulse Ox 96% ; jl7 09:32 BP 117 / 57; Pulse 75; Resp 16; Pulse Ox 100% ; jl7 10:48 BP 122 / 65; Pulse 68; Resp 16; Pulse Ox 100% ; aa5 14:00 BP 143 / 63; Pulse 65; Resp 19; Pulse Ox 100% ; jl7 06:49 Body Mass Index 29.21 (82.10 kg, 167.64 cm) ea MDM: 06:56 Patient medically screened. cp 07:30 Differential diagnosis: viral Infection, bacterial infection, URI, bronchitis, cp pneumonia gastroenteritis, meningitis, COVID-19, sepsis. 11:43 Physician consultation: Jeffery Haines MD was called at 11:43, was contacted at 11:43, cp will call back to discuss patient. 13:44 Data reviewed: vital signs, nurses notes, lab test result(s), EKG, radiologic studies, cp plain films, I have discussed the patient's presentation/case with the attending Emergency Department Physician;. 13:44 Test interpretation: by ED physician or midlevel provider: ECG. Counseling: I had a cp detailed discussion with the patient and/or guardian regarding: the historical points, exam findings, and any diagnostic results supporting the discharge/admit diagnosis, lab results, radiology results, to return to the emergency department if symptoms worsen or persist or if there are any questions or concerns that arise at home. Response to treatment: the patient's symptoms have mildly improved after treatment, and as a result, I will discharge patient. 12/07 06:55 Order name: Basic Metabolic Panel; Complete Time: 09:40 12/07 09:41 Interpretation: Normal except: GLUC 228; BUN 21; CRE 1.46; GFR 35; CA 8.2. 12/07 06:55 Order name: CBC with Diff; Complete Time: 08:44 cp 12/07 08:44 Interpretation: Normal except: WBC 3.6; PLT 103. 12/07 06:55 Order name: LFT's; Complete Time: 09:40 12/07 09:40 Interpretation: Normal except: ALB 3.3; GLOB 3.6; A/G 0.9. 12/07 06:55 Order name: Magnesium; Complete Time: 09:40 12/07 06:55 Order name: NT PRO-BNP; Complete Time: 09:40 12/07 06:55 Order name: PT-INR; Complete Time: 08:44 12/07 06:55 Order name: Troponin (emerg Dept Use Only); Complete Time: 09:40 12/07 06:55 Order name: Urine Microscopic Only; Complete Time: 09:40 12/07 09:41 Interpretation: Normal except: UBACT >50; SQEPI 5-10. 12/07 06:55 Order name: Blood Culture Adult (2) 12/07 06:55 Order name: COVID-19 12/07 06:55 Order name: Flu; Complete Time: 09:40 12/07 09:41 Interpretation: Reviewed. 12/07 06:55 Order name: Strep; Complete Time: 09:40 12/07 06:55 Order name: Procalcitonin; Complete Time: 09:40 12/07 09:41 Interpretation: Reviewed. 12/07 06:55 Order name: Lactate; Complete Time: 08:54 12/07 06:55 Order name: XRAY Chest (1 view); Complete Time: 08:54 12/07 08:55 Interpretation: Report review. 12/07 06:55 Order name: EKG; Complete Time: 06:57 12/07 06:55 Order name: Cardiac monitoring; Complete Time: 07:40 12/07 06:55 Order name: EKG - Nurse/Tech; Complete Time: 08:28 12/07 08:11 Order name: Glucose, Ancillary Testing; Complete Time: 08:13 EDMS 12/07 08:42 Order name: Urine Dipstick--Ancillary (enter results); Complete Time: 08:54 em1 12/07 08:54 Interpretation: Normal except: UGLUC 2+; UKET 1+; UBLD TRACE; UPROT 2+. 12/07 08:59 Order name: Urine Culture EDMS 12/07 09:01 Order name: Throat Culture EDMI 12/07 12:19 Order name: D-Dimer; Complete Time: 13:41 12/07 13:41 Interpretation: Reviewed. 12/07 06:55 Order name: IV Saline Lock; Complete Time: 08:28 cp 12/07 06:55 Order name: Labs collected and sent; Complete Time: 08:28 cp 12/07 06:55 Order name: O2 Per Protocol; Complete Time: 07:40 cp 12/07 06:55 Order name: O2 Sat Monitoring; Complete Time: 07:40 cp 12/07 06:55 Order name: Urine Dipstick-Ancillary (obtain specimen); Complete Time: 09:58 cp 12/07 06:55 Order name: Droplet/Contact Precautions; Complete Time: 08:28 cp 12/07 09:43 Order name: PO challenge; Complete Time: 09:57 cp EC:10 Rate is 67 beats/min. Rhythm is regular. IL interval is normal. QRS interval is normal. cp QT interval is normal. T waves are Inverted in lead aVR. Interpreted by me. Reviewed by me. Administered Medications: 08:10 Drug: Zofran (Ondansetron) 4 mg Route: IVP; Site: right forearm; jl7 09:57 Follow up: Response: No adverse reaction; Nausea is decreased jl7 08:10 Drug: NS 0.9% 500 ml Route: IV; Rate: 500 ml/hr; Site: right forearm; jl7 08:40 Follow up: Response: No adverse reaction; IV Status: Completed infusion; IV Intake: jl7 500ml 10:12 Drug: Zofran (Ondansetron) 4 mg Route: IVP; Site: right antecubital; aa5 10:30 Follow up: Response: No adverse reaction; Nausea is decreased jl7 10:40 Drug: NS 0.9% 500 ml Route: IV; Rate: 500 ml/hr; Site: right forearm; aa5 11:20 Follow up: IV Status: Completed infusion; IV Intake: 500ml jl7 Disposition: 12/08 13:24 Co-signature as Attending Physician, Stalin Wagner MD I agree with the assessment and misha plan of care. Disposition: 12/08/19 13:45 Discharged to Home. Impression: Acute upper respiratory infection, unspecified, Diarrhea, unspecified, Nausea and vomiting. - Condition is Stable. - Discharge Instructions: Dehydration, Adult, Diarrhea, Adult, Nausea and Vomiting, Adult, Upper Respiratory Infection, Adult, Viral Respiratory Infection. - Prescriptions for Zofran 4 mg Oral Tablet - take 1 tablet by ORAL route every 12 hours As needed; 20 tablet. Tessalon Perles 100 mg Oral Capsule - take 2 capsule by ORAL route every 8 hours As needed; 20 capsule. Lomotil 2.5- 0.025 mg Oral Tablet - take 1 tablet by ORAL route every 6 hours As needed; 20 tablet. - Medication Reconciliation Form, Thank You Letter, Antibiotic Education, Prescription Opioid Use form. - Family Work Release (12/10/19 20:24). sg - Follow up: Jeffery Haines MD; When: 2 - 3 days; Reason: Recheck today's complaints. - Problem is an ongoing problem. - Symptoms have improved. Signatures: Dispatcher [employer] EDMS Moi Zuleta RN RN Stalin Sullivan MD MD cha Calderon, Audri RN RN aa5 Stalin Mon PA PA cp Leal, Jahala RN RN jl7 Corrections: (The following items were deleted from the chart) 12/07 07:45 07:00 All other systems are negative, cp cp 09:41 09:40 Normal except: GLUC 228; BUN 21; CRE 1.46; GFR 35. cp cp 14:17 13:45 12/08/2019 13:45 Discharged to Home. Impression: Acute upper respiratory jl7 infection, unspecified; Diarrhea, unspecified; Nausea and vomiting. Condition is Stable. Forms are Medication Reconciliation Form, Thank You Letter, Antibiotic Education, Prescription Opioid Use. Follow up: Jeffery Haines; When: 2 - 3 days; Reason: Recheck today's complaints. Problem is an ongoing problem. Symptoms have improved. cp
[2019-12-08 14:24] VITALS: TEMP 98.7
[2019-12-08 14:26] VITALS: O2SAT 100
[2019-12-08 14:29] VITALS: BP 143/63
--- NOTE | 2019-12-09 07:27 | EKG ---
Test Date: 2019-12-08 Test Time: 08:01:37 Targeting Acquisition Officer: LINDA MEASUREMENT RESULTS: Intervals: Rate: 67 MT: 150 QRSD: 78 QT: 416 QTc: 439 [place]: P: 25 MT: 150 QRS: -15 T: 42 INTERPRETIVE STATEMENTS: Normal sinus rhythm Normal ECG Compared to ECG 12/04/2019 13:08:13 No significant changes Electronically Signed On 12-09-19 07:24:24 CDT by Don Scales
== END 2019-12-08 14:17 | disposition home or self-care (01) ==
LOC: ER 06:33
DX: U07.1 COVID-19 (principal); J06.9 Acute upper respiratory infection, unspecified; R11.2 Nausea with vomiting, unspecified; R19.7 Diarrhea, unspecified; I10 Essential (primary) hypertension; E11.9 Type 2 diabetes mellitus without complications; E78.5 Hyperlipidemia, unspecified; Z79.01 Long term (current) use of anticoagulants; Z79.82 Long term (current) use of aspirin; Z88.0 Allergy status to penicillin; Z88.1 Allergy status to other antibiotic agents; Z95.818 Presence of other cardiac implants and grafts
CPT/HCPCS: 93005; 87040 ×2; 87070; 87088; 85025; 87086; 80048; 36415; 83735; 85610; 82947; 85379; 80076; 87081; 83605; 87077; 87186; 84484; 84145; 83880; 87804 ×2; 71045; 99284; U0002; J7030; J2405 ×2; 81003; 81015

== ENCOUNTER 2019-12-12 11:34 | Inpatient (IN) | payer OTHER, MEDICARE ==
--- OUTSIDE RECORDS SUMMARY | 2019-12-12 11:37 | XMS REPORT | Continuity of Care Document ---
:1945 Author Organization [facility] t Address [address] [place] [address] Care Team Providers Name Role Phone Doctor [...] ID 2019-08-05 2019-08-05 Orders Doctor IFTIKHAR [id number] 00:00:00 00:00:00 Only UnassKARIN jaramillo [id number] [place] [facility] [id number] Results This patient has no known results.
[2019-12-12] MEDS ORDERED: PROMETHAZINE INJ 25 MG/ML AMP ONE (11:55)
[2019-12-12] MEDS ORDERED: NA CHLORIDE 0.9% 1,000 ML ONE ×2 (11:56→12:47)
[2019-12-12 12:21] LABS: Absolute Lymphocytes (CBC) 0.7 K/uL (0.7-4.9); Basophils % 0.5 % (0-1.3); Hematocrit 45.5 % (36.0-45.0); MPV 8.5 fL (7.6-11.3); RBC Red Blood Cell Count 5.23 M/uL (3.86-4.86)
[2019-12-12 12:27] LABS: Protime INR 0.97
[2019-12-12 12:40] LABS: ALT/SGPT 26 U/L (12-78); AST/SGOT 21 U/L (15-37); Albumin 3.3 g/dL (3.4-5.0); Alkaline Phosphatase 111 U/L (45-117); Amylase 36 U/L (25-115); BUN Blood Urea Nitrogen 17 mg/dL (7-18); Bicarbonate 26 mmol/L (21-32); Bilirubin Direct 0.2 mg/dL (0-0.2); Bilirubin Total 0.7 mg/dL (0.2-1.0); CKMB Creatine Kinase MB < 1.0 ng/mL (0.3-3.6); Creatine Phosphokinase 43 U/L (26-192); Glucose Level 255 mg/dL (74-106); Lipase 81 U/L (73-393); Potassium 4.5 mmol/L (3.5-5.1); Protein, Total 7.9 g/dL (6.4-8.2); Sodium Level 139 mmol/L (136-145); Troponin (Emerg Dept Use Only) < 0.02 ng/mL (0.0-0.045)
[2019-12-12] MEDS ORDERED: Levofloxacin500mg IV 500 MG/100 ML BAG IV ONE (12:40)
[2019-12-12] MEDS ORDERED: FENTANYL CITR 100 MCG/2 ML ONE (12:42)
--- NOTE | 2019-12-12 12:59 | ER ---
Nurse's Notes [facility] Name: Karoline Paredes Age: 74 yrs Sex: Female : 1945 Arrival Date: 12/12/2019 Time: 11:35 Bed 28 Private MD: Diagnosis: Dehydration;Urinary tract infection, site not specified;CoVid 19 Presentation: 12/11 11:40 Chief complaint: Patient's son or daughter states: Pt has been vomiting x1 week and she ah is weak. She is unable to keep anything to eat or drink down. Found out Friday she was Covid positive. Coronavirus screen: Surgical mask placed on patient. Patient moved to private room, placed in contact and droplet isolation with eye protection until further assessment. Patient reports a cough. Patient reports shortness of breath or difficulty breathing. Patient denies measured and/or subjective temperature greater than 100.4F prior to today's visit. Patient denies travel on a cruise ship or to a country the [facility] currently lists as an affected area. Prior COVID test results are located within the EHR/EMR. POSITIVE. Ebola Screen: No symptoms or risks identified at this time. Initial Sepsis Screen: Does the patient meet any 2 criteria?. Initial Sepsis Screen: Does the patient meet any 2 criteria? No. Patient's initial sepsis screen is negative. Does the patient have a suspected source of infection? No. Patient's initial sepsis screen is negative. Risk Assessment: Do you want to hurt yourself or someone else? Patient reports no desire to harm self or others. Onset of symptoms is unknown. 11:40 Method Of Arrival: Wheelchair 11:40 Acuity: JOVITA 3 Triage Assessment: 12:30 Pain: Complains of pain in back Pain currently is 9 out of 10 on a pain scale. Historical: - Allergies: 12:28 Bactrim; 12:28 PENICILLINS; - Home Meds: 12:51 Aspirin Oral [Active]; atorvastatin 80 mg Oral tab 1 tab once daily [Active]; gabapentin Oral [Active]; Glyburide Oral [Active]; lisinopril Oral [Active]; losartan 100 mg Oral tab 1 tab once daily [Active]; magnesium oxide 400 mg Oral cap [Active]; metoprolol tartrate 25 mg Oral tab 1 tab 2 times per day [Active]; pantoprazole Oral [Active]; Plavix Oral [Active]; venlafaxine 37.5 mg Oral cp24 1 cap once daily [Active]; - PMHx: 12:28 Diabetes - NIDDM; GERD; Hyperlipidemia; Hypertension; Myocardial infarction; - PSHx: 12:28 Cholecystectomy; Tubal ligation; Heart stents; 12:49 RIGHT SHOULDER; - Immunization history:: Adult Immunizations up to date. - Social history:: Smoking status: Patient denies any tobacco usage or history of. Screenin:29 Abuse screen: Denies threats or abuse. Nutritional screening: No deficits noted. Tuberculosis screening: No symptoms or risk factors identified. Fall Risk None identified. Assessment: 12:41 Reassessment: CRITICAL LAB VALUE RECEIVED FROM LAB, D DIMER 805. INFORMED SANDY JEFFERSON. 13:00 Reassessment: Pt lying in bed resting with eyes closed and resp even and unlabored. Medication effective. No vomiting noted. No needs voiced at this time. 13:55 Reassessment: IV pump beeping. IV stopped and flushed. Assisted Pt to [facility] [place] [place] to urinate. Pt states that her pain is better but she is feeling weak. [place] provided. No other needs voiced at this time. Informed Pt that we are awaiting room assignment. 14:08 General: Appears uncomfortable, Behavior is calm, cooperative, appropriate for age. Neuro: Level of Consciousness is awake, alert, obeys commands, Oriented to person, place, time, situation, Appropriate for age. Cardiovascular: Capillary refill < 3 seconds Patient's skin is warm and dry. Pulses are palpable in right radial artery and left radial artery Rhythm is sinus rhythm. Respiratory: Airway is patent Respiratory effort is even, unlabored, Respiratory pattern is regular, symmetrical, Parent/caregiver reports the patient having cough that is. GI: Stools are reported to be loose, Last BM was December 12, 2019. Reports intolerance of fluids, intolerance of food, nausea, vomiting, since x1 week. : Urine is clear, Reports cramping, Denies burning with urination. Derm: Skin is intact, is healthy with good turgor, Skin is dry. Musculoskeletal: generalized weakness. 14:55 Reassessment: Pt resting with eyes closed and resp even and unlabored. No needs voiced at this time. Awaiting on room assignment. 15:05 Reassessment: Attempted to call report to 4th floor. Awaiting for call back. 15:31 Reassessment: Granddaughter Delmar [phone], Called and informed of admission and room number. Vital Signs: 11:40 BP 135 / 72; Pulse 62; Resp 17; Temp 97.9(O); Pulse Ox 100% ; Weight 99.79 kg; Pain 9/10; 13:00 BP 159 / 68; Pulse 60; Resp 14; Pulse Ox 10% ; ah 14:00 BP 144 / 54; Pulse 57; Resp 15; Pulse Ox 100% ; ah 15:00 BP 120 / 55; Pulse 75; Resp 18; Pulse Ox 100% ; ah ED Course: 11:35 Patient arrived in ED. as 11:36 Alena Stout FNP-C is [facility]. snw 11:36 Guille Gutiérrez MD is Attending Physician. snw 11:59 Dana Breaux, BUSHRA is Primary Nurse. 12:26 Triage completed. 12:29 Patient has correct armband on for positive identification. Bed in low position. Call light in reach. Side rails up X2. Adult w/ patient. quality assurance monitor final on. Pulse ox on. NIBP on. Door closed. Visitors limited. Lights dimmed. Warm blanket given. Contact isolation initiated. 12:50 Chest Single View XRAY In Process Unspecified. EDMS 12:58 Jeffery Haines MD is Hospitalizing Provider. snw 14:14 Patient notified of wait time. 15:03 Inserted saline lock: 20 gauge in left antecubital area, using aseptic technique. 15:03 Inserted saline lock: 22 gauge in right hand, using aseptic technique. 15:32 No provider procedures requiring assistance completed. Patient admitted, IV remains in place. Administered Medications: 12:15 Drug: Phenergan 6.25 mg Route: IVP; Site: right hand; 13:15 Follow up: Response: No adverse reaction 12:30 Drug: NS 0.9% (30 ml/kg) 30 ml/kg Route: IV; Rate: bolus; Site: left antecubital; 14:18 Follow up: Response: No adverse reaction; IV Status: Completed infusion 12:30 Drug: LevaQUIN 500 mg Volume: 100 ml; Route: IVPB; Infused Over: 60 mins; Site: right hand; 14:18 Follow up: Response: No adverse reaction; IV Status: Completed infusion 12:30 Drug: NS 0.9% 1000 ml Route: IV; Rate: 125 ml/hr; Site: left antecubital; 15:40 Follow up: Response: No adverse reaction; IV Status: Infusion continued upon admission 12:37 Drug: fentaNYL (PF) 25 mcg Route: IVP; Site: right hand; 13:16 Follow up: Response: No adverse reaction Outcome: 12:58 Decision to Hospitalize by Provider. snw 15:30 Admitted to Tele accompanied by tech, via stretcher, room 414, with chart, Report called to BUSHRA Albrecht 15:30 Condition: stable 15:30 Instructed on the need for admit. 16:19 Patient left the ED. Addendum: 12/14/2019 17:29 Addendum: Culture Results: Positive urine culture. pt was admitted and is receiving IV i w antibiotics. Signatures: Dispatcher [employer] EDMS Alena Stout, MOLDED GOODS INSPECTOR TRIMMER-C MOLDED GOODS INSPECTOR TRIMMER-Kiarra Barnett Irene, RN BUSHRA Dana Breaux RN RN Corrections: (The following items were deleted from the chart) 12/11 12:48 11:40 BP 135 / 72; Pulse 62bpm; Resp 17bpm; Pulse Ox 100%; 99.79 kg; [facility]
--- NOTE | 2019-12-12 12:59 | EDPHYS ---
Physician Documentation [facility] Name: Karoline Paredes Age: 74 yrs Sex: Female : 1945 Arrival Date: 12/12/2019 Time: 11:35 Bed 28 Private MD: ED Physician Guille Gutiérrez HPI: 12/11 13:00 This 74 yrs old Female presents to ER via Wheelchair with complaints of snw Covid+ feels worse. 13:00 tested + for CoVid 19, significant vomiting x 1 week, unable to hold down medications. snw Weak. Onset: The symptoms/episode began/occurred gradually, 1 week(s) ago, and became worse. Severity of symptoms: At their worst the symptoms were moderate severe in the emergency department the symptoms are unchanged. The patient has not experienced similar symptoms in the past. The patient has been recently seen by a physician: The patient has been recently seen at the [facility] Emergency Department, this week. Pt feeling worse, + back pain, + nausea, vomiting, Urine culture from previous visit + uti. Pt allergic to PCN, Bactrim. Historical: - Allergies: 12:28 Bactrim; 12:28 PENICILLINS; - Home Meds: 12:51 Aspirin Oral [Active]; atorvastatin 80 mg Oral tab 1 tab once daily [Active]; ah gabapentin Oral [Active]; Glyburide Oral [Active]; lisinopril Oral [Active]; losartan 100 mg Oral tab 1 tab once daily [Active]; magnesium oxide 400 mg Oral cap [Active]; metoprolol tartrate 25 mg Oral tab 1 tab 2 times per day [Active]; pantoprazole Oral [Active]; Plavix Oral [Active]; venlafaxine 37.5 mg Oral cp24 1 cap once daily [Active]; - PMHx: 12:28 Diabetes - NIDDM; GERD; Hyperlipidemia; Hypertension; Myocardial infarction; - PSHx: 12:28 Cholecystectomy; Tubal ligation; Heart stents; 12:49 RIGHT SHOULDER; - Immunization history:: Adult Immunizations up to date. - Social history:: Smoking status: Patient denies any tobacco usage or history of. ROS: 13:02 Eyes: Negative for injury, pain, redness, and discharge, ENT: Negative for injury, snw pain, and discharge, Neck: Negative for injury, pain, and swelling, Cardiovascular: Negative for chest pain, palpitations, and edema, Respiratory: Negative for shortness of breath, cough, wheezing, and pleuritic chest pain. 13:02 Back: Negative for injury and pain, : Negative for injury, bleeding, discharge, and swelling. 13:02 Skin: Negative for injury, rash, and discoloration. 13:02 Constitutional: Positive for body aches, fatigue, malaise, poor PO intake. 13:02 Abdomen/GI: Positive for nausea and vomiting, diarrhea. 13:02 MS/extremity: Positive for back pain. 13:02 Neuro: Positive for weakness. Exam: 13:03 Head/Face: Normocephalic, atraumatic. Eyes: Pupils equal round and reactive to light, snw extra-ocular motions intact. Lids and lashes normal. Conjunctiva and sclera are non-icteric and not injected. Cornea within normal limits. Periorbital areas with no swelling, redness, or edema. ENT: Nares patent. No nasal discharge, no septal abnormalities noted. Tympanic membranes are normal and external auditory canals are clear. Oropharynx with no redness, swelling, or masses, exudates, or evidence of obstruction, uvula midline. Mucous membranes moist. Neck: Trachea midline, no thyromegaly or masses palpated, and no cervical lymphadenopathy. Supple, full range of motion without nuchal rigidity, or vertebral point tenderness. No Meningismus. Chest/axilla: Normal chest wall appearance and motion. Nontender with no deformity. No lesions are appreciated. 13:03 Respiratory: Lungs have equal breath sounds bilaterally, clear to auscultation and percussion. No rales, rhonchi or wheezes noted. No increased work of breathing, no retractions or nasal flaring. 13:03 Back: No spinal tenderness. No costovertebral tenderness. Full range of motion. 13:03 Constitutional: The patient appears awake, listless. 13:03 Cardiovascular: Rate: bradycardic, Rhythm: regular, Heart sounds: normal. 13:03 Abdomen/GI: Inspection: abdomen appears normal, Bowel sounds: normal, Palpation: mild abdominal tenderness, in all quadrants. 13:03 Musculoskeletal/extremity: right shoulder with baseline decreased ROM. 13:03 Skin: Appearance: Color: pale, Temperature: normal temperature, Moisture: dry. Vital Signs: 11:40 BP 135 / 72; Pulse 62; Resp 17; Temp 97.9(O); Pulse Ox 100% ; Weight 99.79 kg; Pain ah 9/10; 13:00 BP 159 / 68; Pulse 60; Resp 14; Pulse Ox 10% ; ah 14:00 BP 144 / 54; Pulse 57; Resp 15; Pulse Ox 100% ; ah 15:00 BP 120 / 55; Pulse 75; Resp 18; Pulse Ox 100% ; ah MDM: 11:36 Patient medically screened. snw 12:59 Data reviewed: vital signs, nurses notes. Data interpreted: Pulse oximetry: on room air snw is 100 %. Interpretation: normal. Counseling: I had a detailed discussion with the patient and/or guardian regarding: the historical points, exam findings, and any diagnostic results supporting the discharge/admit diagnosis, lab results, radiology results, the need for further work-up and treatment in the hospital. Physician consultation: Jeffery Haines MD was called at 12:59, was contacted at 12:59, regarding admission, to the telemetry unit. would like consultation with Dr. Dr. Hoskins. 12/11 12:01 Order name: Amylase, Serum; Complete Time: 12:50 12/11 12:01 Order name: Basic Metabolic Panel; Complete Time: 12:50 12/11 12:01 Order name: Blood Culture Adult (2) 12/11 12:01 Order name: CBC with Diff; Complete Time: 12:50 12/11 12:01 Order name: Ckmb; Complete Time: 12:50 12/11 12:01 Order name: CPK; Complete Time: 12:50 12/11 12:01 Order name: Lactate; Complete Time: 13:05 12/11 12:01 Order name: LFT's; Complete Time: 12:50 12/11 12:01 Order name: Lipase; Complete Time: 12:50 12/11 12:01 Order name: Procalcitonin; Complete Time: 13:16 12/11 12:01 Order name: Protime (+inr); Complete Time: 12:50 12/11 12:01 Order name: Ptt, Activated; Complete Time: 12:50 12/11 12:01 Order name: Troponin (emerg Dept Use Only); Complete Time: 12:50 12/11 12:01 Order name: Urine Microscopic Only 12/11 12:01 Order name: Chest Single View XRAY; Complete Time: 13:16 12/11 12:01 Order name: Accucheck; Complete Time: 12:53 12/11 12:01 Order name: Cardiac monitoring; Complete Time: 12:20 12/11 12:01 Order name: IV Saline Lock - Large Bore; Complete Time: 12:20 12/11 12:01 Order name: Labs collected and sent; Complete Time: 12:21 12/11 12:09 Order name: DD; Complete Time: 12:50 12/11 13:15 Order name: Basic Metabolic Panel EDMS 12/11 13:15 Order name: Basic Metabolic Panel EDMS 12/11 13:15 Order name: CBC with Automated Diff EDMS 12/11 13:15 Order name: CBC with Automated Diff EDMS 12/11 12:01 Order name: O2 Per Protocol; Complete Time: 12:21 12/11 12:01 Order name: O2 Sat Monitoring; Complete Time: 12:22 12/11 12:01 Order name: Urine Dipstick-Ancillary (obtain specimen); Complete Time: 12:22 Administered Medications: 12:15 Drug: Phenergan 6.25 mg Route: IVP; Site: right hand; 13:15 Follow up: Response: No adverse reaction 12:30 Drug: NS 0.9% (30 ml/kg) 30 ml/kg Route: IV; Rate: bolus; Site: left antecubital; 14:18 Follow up: Response: No adverse reaction; IV Status: Completed infusion 12:30 Drug: LevaQUIN 500 mg Volume: 100 ml; Route: IVPB; Infused Over: 60 mins; Site: right hand; 14:18 Follow up: Response: No adverse reaction; IV Status: Completed infusion 12:30 Drug: NS 0.9% 1000 ml Route: IV; Rate: 125 ml/hr; Site: left antecubital; 15:40 Follow up: Response: No adverse reaction; IV Status: Infusion continued upon admission 12:37 Drug: fentaNYL (PF) 25 mcg Route: IVP; Site: right hand; 13:16 Follow up: Response: No adverse reaction Disposition: 19:12 Co-signature as Attending Physician, Guille Gutiérrez MD. wa2 Disposition: 12/12/19 12:58 Hospitalization ordered by Jeffery Haines for Inpatient Admission. Preliminary diagnosis are Dehydration, Urinary tract infection, site not specified, CoVid 19. - Bed requested for Telemetry/MedSurg (Inpatient). - Status is Inpatient Admission. - Condition is Stable. - Problem is an acute exacerbation. - Symptoms have worsened. Signatures: Dispatcher [employer] Victoria Wolf, RN RN Alena Stout, SOCIAL SCIENCES LECTURER-C SOCIAL SCIENCES LECTURER-Csnw Guille Gutiérrez MD MD wa2 Dana Breaux RN RN Corrections: (The following items were deleted from the chart) 13:31 12:01 EKG - Nurse/Tech ordered. [facility] 14:57 12:58 Hospitalization Ordered by Jeffery Haines MD for Inpatient Admission. Preliminary diagnosis is Dehydration; Urinary tract infection, site not specified; CoVid 19. Bed requested for Telemetry/MedSurg (Inpatient). Status is Inpatient Admission. Condition is Stable. Problem is an acute exacerbation. Symptoms have worsened. snw 16:19 14:57 12/12/2019 12:58 Hospitalization Ordered by Jeffery Haines MD for Inpatient Admission. Preliminary diagnosis is Dehydration; Urinary tract infection, site not specified; CoVid 19. Bed requested for Telemetry/MedSurg (Inpatient). Status is Inpatient Admission. Condition is Stable. Problem is an acute exacerbation. Symptoms have worsened.
[2019-12-12] MEDS ORDERED: FENTANYL CITR 100 MCG/2 ML IV PRN (13:09)
[2019-12-12] MEDS ORDERED: PROMETHAZINE INJ 25 MG/ML AMP IV PRN (13:09)
[2019-12-12] MEDS ORDERED: ACETAMINOPHEN 500 MG TAB PO PRN (13:09)
[2019-12-12] MEDS ORDERED: GLUCAGON 1 MG/VIAL IM PRN (13:09)
[2019-12-12] MEDS ORDERED: D50W 25 GM/50 ML SYRINGE/VIAL IV PRN (13:09)
--- NOTE | 2019-12-12 13:11 | RAD REPORT ---
EXAM DESCRIPTION: Yoandy Single View12/12/2019 12:50 pm CLINICAL HISTORY: Chest pain COMPARISON: December 07 FINDINGS: The patient is in a poor degree of inspiration The lungs appear grossly clear. The heart is normal size IMPRESSION: No acute abnormalities displayed
[2019-12-12] MEDS: NA CHLORIDE 0.9% 1,000 ML IV SCH ×2 (14:00→20:59)
[2019-12-12] MEDS: INSULIN -REGULAR HUMAN 50 UNIT/0.5 ML ML SQ SCH ×2 (16:30→21:00)
[2019-12-12 17:37] VITALS: BMI 36.6
[2019-12-12 18:40] LABS: Urine Bacteria <20 /HPF (<20); Urine Culture Reflex Order NOT NEEDED; Urine RBC NONE SEEN /HPF (NONE SEEN)
--- NOTE | 2019-12-12 20:46 | P.HP ---
Certification for Inpatient Patient admitted to: Inpatient With expected LOS: >2 Midnights Practitioner: I am a practitioner with admitting privileges, knowledge of patient current condition, hospital course, and medical plan of care. Services: Services provided to patient in accordance with Admission requirements found in Title 42 Section 412.3 of the Code of Federal Regulations Patient History Date of Service: 12/12/19 Reason for admission: SEVERE WEAKNESS, VOMITING History of Present Illness: MS. SALGADO HAS HAD WEAKNESS FOR TWO WEEK AND VOMITING FOR A DAY OR TWO. SHE DOES NOT KNOW WHO SHE CAME IN CONTACT WITH WHO MAY HAVE COVID. ON HER SECOND VISIT TO ER SHE HAD COVID TEST DONE. SHE IS POSITIVE BUT I WAS NOT CALLED. ER NOTIFIED ME WHEN SHE CAME BACK TO ER FOR NAUSE AND VOMITING. TODAY WE ADMITTED HER SHE NEEDS IV HYDRATION AND TREATMENT FOR VOMITING. SHE HAS NO PAIN. SHE HAS NO RESPIRATORY SYMPTOMS. SHE IS DIFFUSELY WEAK. Allergies Penicillins Allergy (Verified 04/22/17 23:12) Unknown sulfamethoxazole [From Bactrim] Allergy (Verified 04/22/17 23:12) Unknown trimethoprim [From Bactrim] Allergy (Verified 04/22/17 23:12) Unknown Home Medications: Atorvastatin Calcium [Lipitor] 80 mg PO BEDTIME 01/30/18 Clopidogrel Bisulfate [Plavix*] 75 mg PO DAILY 01/30/18 Gabapentin [Neurontin] 600 mg PO TID 01/30/18 Glimepiride 4 mg PO BID 01/30/18 Losartan Potassium 100 mg PO DAILY 01/30/18 Metoprolol Tartrate 25 mg PO BID 6AM 6PM 01/30/18 Venlafaxine HCl 37.5 mg PO DAILY AT SUPPER 01/30/18 Insulin Glargine/Lixisenatide [Soliqua 100 Unit-33 Mcg/ml Pen] 15 ml SQ DAILY 12/12/19 Magnesium Oxide [Mag 0X*] 400 mg PO DAILY 12/12/19 - Past Medical/Surgical History Has patient received pneumonia vaccine in the past: Yes Diabetic: Yes -: Diabetes -: GErd -: Hyperlipemia -: HTN -: GA -: tubaligation -: cholecystectomy -: Knee surgery -: 3 right shoulder surgeries - Family History Father -: Stroke Mother -: Heart disease, Other (see notes) Notes: ALZHEIMER'S Brother -: Heart disease - Social History Smoking Status: Never smoker Alcohol use: No CD- Drugs: No Caffeine use: Yes Place of Residence: Home Review of Systems 10-point ROS is otherwise unremarkable General: Weakness, Malaise Gastrointestinal: Nausea, Vomiting Physical Examination - Vital Signs Temperature: 94.5 F Blood Pressure: 156/69 Pulse: 57 Respirations: 18 Pulse Ox (%): 97 - Physical Exam General: Alert, Mild distress, Moderate distress, Other (WEAK FROM THIS ILLNESS. ) HEENT: Atraumatic, PERRLA, Mucous membr. moist/pink, EOMI, Sclerae nonicteric Neck: Supple, 2+ carotid pulse no bruit, No LAD, Without JVD or thyroid abnormality Respiratory: Clear to auscultation bilaterally, Normal air movement Cardiovascular: Regular rate/rhythm, Normal S1 S2 Gastrointestinal: Normal bowel sounds, No tenderness Musculoskeletal: No tenderness Integumentary: No rashes Neurological: Normal gait, Normal speech, Normal strength at 5/5 x4 extr, Normal tone, Normal affect Lymphatics: No axilla or inguinal lymphadenopathy - Studies Laboratory Data (last 24 hrs) 12/12/19 11:55: PT 11.4, INR 0.97, APTT 28.7 12/12/19 11:55: WBC 4.4 D, Hgb 14.8, Hct 45.5 H, Plt Count 213 D 12/12/19 11:55: Sodium 139, Potassium 4.5, BUN 17, Creatinine 1.27, Glucose 255 H, Total Bilirubin 0.7, AST 21, ALT 26, Alkaline Phosphatase 111, Amylase 36, Lipase 81 Assessment and Plan - Problems (Diagnosis) (1) Dehydration Current Visit: Yes Status: Acute Plan: IV FLUIDS DAILY LAB MONITOR I AND O. IMPROVED DIET IF CAN. IF NOT WILL DO PPN OR TPN. (2) COVID-19 ruled out by laboratory testing Current Visit: Yes Status: Acute Plan: SUPPORTIVE CARE. SO FAR NO RESPIRATORY SYMPTOMS. ISOLATION. IV FLUIDS. LOVENOX SC. PEPCID FOR PUD PREVENTION. DAILY LAB. (3) Nausea & vomiting Current Visit: Yes Status: Acute Plan: PHENEGAN IV WORKING. IV FLUIDS. SHE HAS GI RELATED COVID SYMPTOMS. ABDOMEN IS SOFT AND NON TENDER. I WILL STOP LEVAQUIN TO AVOID COMPLICATIONS OF IT LIKE C DIFF. I SEE NO CLINICAL INDICATION OF BACTERIAL INFECTION. Qualifiers: Vomiting Intractability: intractable (4) Diabetes mellitus type 2 in obese Onset Date: 02/02/18 Current Visit: No Status: Chronic Plan: FS Q4H, MOD SS. LANTUS ON HOLD ORAL INTAKE IS POOR. - Advance Directives Does patient have a Living Will: No Does patient have a Durable POA for Healthcare: No - Code Status/Comfort Care Code Status: Full Code
[2019-12-12] MEDS: ENOXAPARIN 40 MG/0.4 ML SQ SCH (20:59)
[2019-12-12] MEDS: GABAPENTIN 300 MG CAP PO SCH (20:59)
[2019-12-12] MEDS: JUVEN PACKET PO SCH (21:00)
[2019-12-13 04:11] LABS: Absolute Lymphocytes (CBC) 0.9 K/uL (0.7-4.9); Basophils % 0.8 % (0-1.3); Hematocrit 39.3 % (36.0-45.0); Lymphocytes % 26.1 % (15.3-44.8); MPV 8.6 fL (7.6-11.3); RBC Red Blood Cell Count 4.53 M/uL (3.86-4.86)
[2019-12-13 04:30] LABS: Protime INR 1.17
[2019-12-13 04:37] LABS: C-Reactive Protein 16.1 mg/L (<3.00); Ferritin 195.3 ng/mL (8-388)
[2019-12-13] MEDS: NA CHLORIDE 0.9% 1,000 ML IV SCH ×3 (04:52→19:53)
[2019-12-13] MEDS: METOPROLOL TAR 25 MG TAB PO SCH ×2 (05:03→16:47)
[2019-12-13] MEDS: INSULIN -REGULAR HUMAN 50 UNIT/0.5 ML ML SQ SCH ×4 (07:30→21:03)
[2019-12-13] MEDS: CLOPIDOGREL 75 MG TABLET PO SCH (08:09)
[2019-12-13] MEDS: JUVEN PACKET PO SCH ×3 (08:09→21:00)
[2019-12-13] MEDS: GABAPENTIN 300 MG CAP PO SCH ×3 (08:09→19:51)
[2019-12-13] MEDS: LOSARTAN POTASSIUM 50 MG TABLET PO SCH (08:09)
[2019-12-13] MEDS: MAGNESIUM OXIDE 400 MG TAB PO SCH (08:09)
[2019-12-13] MEDS: FAMOTIDINE 20 MG TAB PO SCH (08:59)
[2019-12-13] MEDS ORDERED: Levofloxacin500mg IV 500 MG/100 ML BAG IV SCH (13:00)
[2019-12-13] MEDS: VENLAFAXINE HCL 37.5 MG TAB PO SCH (16:43)
[2019-12-13] MEDS: ENOXAPARIN 40 MG/0.4 ML SQ SCH (16:43)
[2019-12-13] MEDS ORDERED: ENOXAPARIN 40 MG/0.4 ML SQ SCH (17:00)
--- NOTE | 2019-12-13 17:40 | P.PN ---
Subjective Date of Service: 12/13/19 Chief Complaint: SEVERE WEAKNESS, VOMITING Subjective: Improving (GEN WEAK.) Review of Systems 10-point ROS is otherwise unremarkable General: Weakness, Malaise Cardiovascular: As per HPI Physical Examination - Vital Signs Temperature: 98.6 F Blood Pressure: 147/65 Pulse: 56 Respirations: 18 Pulse Ox (%): 100 - Physical Exam General: Mild distress, Other HEENT: Atraumatic, PERRLA, EOMI Neck: Supple, JVD not distended Respiratory: Clear to auscultation bilaterally, Normal air movement Cardiovascular: Regular rate/rhythm, Normal S1 S2 Gastrointestinal: Normal bowel sounds, No tenderness Musculoskeletal: No tenderness Integumentary: No rashes Neurological: Normal speech, Normal tone, Normal affect Lymphatics: No axilla or inguinal lymphadenopathy - Studies Medications List Reviewed: Yes Assessment And Plan - Current Problems (Diagnosis) (1) Dehydration Current Visit: Yes Status: Acute Plan: IV FLUIDS DAILY LAB MONITOR I AND O. IMPROVED DIET IF CAN. IF NOT WILL DO PPN OR TPN. (2) COVID-19 ruled out by laboratory testing Current Visit: Yes Status: Acute Plan: SUPPORTIVE CARE. SO FAR NO RESPIRATORY SYMPTOMS. ISOLATION. IV FLUIDS. LOVENOX SC. PEPCID FOR PUD PREVENTION. DAILY LAB. CLINICALLY STABLE. WILL FU. ADVISE AMBULATION. SHE WANTS TO GO HOMEBUT STILL VERY WEAK. SHE DID NOT EAT FOR 3 WEEKS. SHE HAS SON ON HD AND GRAND DAUGHTER WHO HAVE BEEN EXPOSED TO HER. THEY ALL ARE ON QUARANTINE FOR NOW. [facility] HAS TALK[facility] TO ALL OF THEM. (3) Nausea & vomiting Current Visit: Yes Status: Acute Plan: PHENEGAN IV WORKING. IV FLUIDS. SHE HAS GI RELATED COVID SYMPTOMS. ABDOMEN IS SOFT AND NON TENDER. I WILL STOP LEVAQUIN TO AVOID COMPLICATIONS OF IT LIKE C DIFF. I SEE NO CLINICAL INDICATION OF BACTERIAL INFECTION. Qualifiers: Vomiting Intractability: intractable (4) Diabetes mellitus type 2 in obese Onset Date: 02/02/18 Current Visit: No Status: Chronic Plan: FS Q4H, MOD SS. LANTUS ON HOLD ORAL INTAKE IS POOR.
[2019-12-14] MEDS: NA CHLORIDE 0.9% 1,000 ML IV SCH (04:38)
[2019-12-14] MEDS: METOPROLOL TAR 25 MG TAB PO SCH ×2 (06:00→18:07)
[2019-12-14] MEDS: INSULIN -REGULAR HUMAN 50 UNIT/0.5 ML ML SQ SCH ×4 (07:30→21:00)
[2019-12-14] MEDS: FAMOTIDINE 20 MG TAB PO SCH (07:49)
[2019-12-14] MEDS: MAGNESIUM OXIDE 400 MG TAB PO SCH (07:49)
[2019-12-14] MEDS: LOSARTAN POTASSIUM 50 MG TABLET PO SCH (07:49)
[2019-12-14] MEDS: GABAPENTIN 300 MG CAP PO SCH ×3 (07:49→20:17)
[2019-12-14] MEDS: CLOPIDOGREL 75 MG TABLET PO SCH (07:50)
[2019-12-14] MEDS: JUVEN PACKET PO SCH ×2 (07:53→18:46)
[2019-12-14] MEDS ORDERED: NA CHLORIDE 0.9% 1,000 ML IV SCH ×2 (08:00→11:23)
--- NOTE | 2019-12-14 08:20 | RAD REPORT ---
EXAM DESCRIPTION: RAD - Chest Single View - 12/14/2019 8:09 am CLINICAL HISTORY: COVID POS. COMPARISON: Portable December 11 TECHNIQUE: AP portable chest image was obtained 12/14/2019 8:09 am . FINDINGS: Lung volumes are further reduced. No one area of dense consolidation seen. Patient does meléndez ve patchy areas of alveolar opacification and increased interstitial prominence. Most of this is due to low lung volumes. Patchy pneumonia changes are possible and would be consistent with a COVID posit elmer patient. Heart size is normal. Vasculature within normal limits. No measurable pleural effusion and no pneumo thorax. No acute bone findings seen. 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 No acute a ortic findings suspected. IMPRESSION: Limited shallow inspiration exam showing patchy opacification in the lung mcgrath. Lung pattern is consistent with but not specific for COVID-19 infection.
[2019-12-14] MEDS ORDERED: AA 4.25%/D10W/ELECTROLYTES 2,000 ML, Lipids 20% 250 ML with MULTIVITAMINS INJ 10 ML IV SCH ×3 (17:00)
[2019-12-14] MEDS: VENLAFAXINE HCL 37.5 MG TAB PO SCH (18:09)
[2019-12-14] MEDS: ENOXAPARIN 40 MG/0.4 ML SQ SCH (18:10)
[2019-12-15] MEDS: INSULIN -REGULAR HUMAN 50 UNIT/0.5 ML ML SQ SCH ×3 (00:44→12:25)
[2019-12-15 05:44] VITALS: O2SAT 97
[2019-12-15] MEDS: METOPROLOL TAR 25 MG TAB PO SCH (05:46)
[2019-12-15] MEDS: FAMOTIDINE 20 MG TAB PO SCH (07:53)
[2019-12-15] MEDS: LOSARTAN POTASSIUM 50 MG TABLET PO SCH (07:54)
[2019-12-15] MEDS: CLOPIDOGREL 75 MG TABLET PO SCH (07:54)
[2019-12-15] MEDS: MAGNESIUM OXIDE 400 MG TAB PO SCH (07:54)
[2019-12-15] MEDS: GABAPENTIN 300 MG CAP PO SCH (07:54)
[2019-12-15] MEDS: JUVEN PACKET PO SCH (07:55)
[2019-12-15 14:55] VITALS: BP 146/53; TEMP 97.5
--- NOTE | 2019-12-15 15:57 | PN ---
Subjective: Generally, she is weaker than yesterday. She is not short of breath. Does not have any coughing or fever. Nausea and vomiting have resolved, but she is to not able to eat properly becaus e of lack of appetite. Physical Examination: Vital Signs: Blood pressure is stable at 140/60. She is afebrile. Pulse rate goes down to 50s at t imes. General: On clinical examination, patient is generally weak. She is able to communicate properly. Neurologic: She seems sound. Chest: On nursing examination, there are basal rales, which are minimal fine rales. Laboratory Data: CBC, chem 7 are stable. Chest x-ray shows slight worsening of patchy opacification , which is new for her consistent with COVID-19 infection. Assessment/plan: Coronavirus disease 2019 infection. I have called Dr. Hoskins. Currently with no decompensation. Patient is not on any steroids, but it will be considered if necessary. Currently, we are providing supportive care. I am starting her on TPN because she is not eating properly. The re are signs of bacterial infection. Patient will be watched on a daily basis. Prognosis is guarded . RVD/MODL Voice ID: [id number] Report ID: [id number]
--- NOTE | 2019-12-15 17:33 | P.DS ---
Admission Date: 12/12/19 Discharge Date: 12/15/19 Disposition: ROUTINE DISCHARGE Discharge Condition: FAIR Reason for Admission: SEVERE WEAKNESS, VOMITING - Problems (1) Dehydration Status: Acute (2) COVID-19 ruled out by laboratory testing Status: Acute (3) Nausea & vomiting Status: Acute Qualifiers: Vomiting Intractability: intractable (4) Diabetes mellitus type 2 in obese Onset Date: 02/02/18 Status: Chronic Brief History of Present Illness: MS. SALGADO HAS HAD WEAKNESS FOR TWO WEEK AND VOMITING FOR A DAY OR TWO. SHE DOES NOT KNOW WHO SHE CAME IN CONTACT WITH WHO MAY HAVE COVID. ON HER SECOND VISIT TO ER SHE HAD COVID TEST DONE. SHE IS POSITIVE BUT I WAS NOT CALLED. ER NOTIFIED ME WHEN SHE CAME BACK TO ER FOR NAUSE AND VOMITING. TODAY WE ADMITTED HER SHE NEEDS IV HYDRATION AND TREATMENT FOR VOMITING. SHE HAS NO PAIN. SHE HAS NO RESPIRATORY SYMPTOMS. SHE IS DIFFUSELY WEAK. Hospital Course: MS. SALGADO IS A DIABETIC WHO COMES WITH NAUSEA, VOMITING AND WEAKNESS. SHE TURNS POSITIVE FOR COVID INFECTION. SHE IMPROVES ON SUPPORTIVE CARE, IV FLUIDS PPN ETC. NOW SHE IS ABLE TO TOLERATE FOOD AND HAS NO GI SYMPTOMS. SHE IS STILL WEAK EXPECTED. SHE IS ABLE TO AND WILLING TO GO HOME WITH FU IN OFFICE ON TELEVISIT. Vital Signs/Physical Exam: Temp Pulse Resp BP Pulse Ox 97.5 F 61 20 146/53 H 97 12/15/19 12:00 12/15/19 12:00 12/15/19 12:00 12/15/19 12:00 12/15/19 12:00 Laboratory Data at Discharge: WBC 3.6 K/uL (4.3-10.9) L D 12/13/19 03:33 Hgb 13.1 g/dL (12.0-15.0) 12/13/19 03:33 Hct 39.3 % (36.0-45.0) 12/13/19 03:33 Plt Count 168 K/uL (152-406) D 12/13/19 03:33 PT 13.8 SECONDS (9.5-12.5) H 12/13/19 03:33 INR 1.17 12/13/19 03:33 APTT 23.6 SECONDS (24.3-36.9) L 12/13/19 03:33 Sodium 144 mmol/L (136-145) 12/13/19 03:33 Potassium 4.0 mmol/L (3.5-5.1) 12/13/19 03:33 BUN 14 mg/dL (7-18) 12/13/19 03:33 Creatinine 1.01 mg/dL (0.55-1.3) 12/13/19 03:33 Glucose 143 mg/dL (74-106) H 12/13/19 03:33 Total Bilirubin 0.7 mg/dL (0.2-1.0) 12/12/19 11:55 AST 21 U/L (15-37) 12/12/19 11:55 ALT 26 U/L (12-78) 12/12/19 11:55 Alkaline Phosphatase 111 U/L (45-117) 12/12/19 11:55 Amylase 36 U/L (25-115) 12/12/19 11:55 Lipase 81 U/L (73-393) 12/12/19 11:55 Home Medications: Atorvastatin Calcium [Lipitor] 80 mg PO BEDTIME 01/30/18 Clopidogrel Bisulfate [Plavix*] 75 mg PO DAILY 01/30/18 Gabapentin [Neurontin] 600 mg PO TID 01/30/18 Glimepiride 4 mg PO BID 01/30/18 Losartan Potassium 100 mg PO DAILY 01/30/18 Metoprolol Tartrate 25 mg PO BID 6AM 6PM 01/30/18 Venlafaxine HCl 37.5 mg PO DAILY AT SUPPER 01/30/18 Insulin Glargine/Lixisenatide [Soliqua 100 Unit-33 Mcg/ml Pen] 15 ml SQ DAILY 12/12/19 Magnesium Oxide [Mag 0X*] 400 mg PO DAILY 12/12/19 Patient Discharge Instructions: DRINK GLUCERNA DAILY. TAKE ZINC 50 MG DAILY. VIT C 1000 MG DAILY. VIT D 1000 UNITS DAILY. DO NOT TAKE INSLULIN IF GLUCOSE LESS THAN 120. FU TELEMEDICINE WITH ME NEXT WEEK.
[2019-12-15] MEDS ORDERED: ENSURE HIGH PROTEIN 237 ML CAN PO SCH (21:00)
--- NOTE | 2019-12-16 08:12 | P.CNS ---
Date of Consult: 12/14/19 Chief Complaint: Coronal virus positive nausea vomiting History of Present Illness: Patient is 74 years of age admitted with nausea vomiting for the past week with significant dehydration weakness eyes any pulmonary complaints borderline fever and time started about a week prior to her admission no prior history of cardiopulmonary problems admitted to the hospital denies any shortness of breath cough or upper airway symptoms no evidence of hypoxemia Allergies Penicillins Allergy (Verified 04/22/17 23:12) Unknown sulfamethoxazole [From Bactrim] Allergy (Verified 04/22/17 23:12) Unknown trimethoprim [From Bactrim] Allergy (Verified 04/22/17 23:12) Unknown Home Medications: Atorvastatin Calcium [Lipitor] 80 mg PO BEDTIME 01/30/18 Clopidogrel Bisulfate [Plavix*] 75 mg PO DAILY 01/30/18 Gabapentin [Neurontin] 600 mg PO TID 01/30/18 Glimepiride 4 mg PO BID 01/30/18 Losartan Potassium 100 mg PO DAILY 01/30/18 Metoprolol Tartrate 25 mg PO BID 6AM 6PM 01/30/18 Venlafaxine HCl 37.5 mg PO DAILY AT SUPPER 01/30/18 Insulin Glargine/Lixisenatide [Soliqua 100 Unit-33 Mcg/ml Pen] 15 ml SQ DAILY 12/12/19 Magnesium Oxide [Mag 0X*] 400 mg PO DAILY 12/12/19 - Past Medical/Surgical History Diabetic: Yes -: Diabetes -: GErd -: Hyperlipemia -: HTN -: KS -: tubaligation -: cholecystectomy -: Knee surgery -: 3 right shoulder surgeries - Family History Father Medical History: Stroke Mother Medical History: Heart disease, Other (see notes) Notes: ALZHEIMER'S Brother Medical History: Heart disease - Social History Alcohol use: No CD- Drugs: No Caffeine use: Yes Place of Residence: Home Review of Systems General: Weakness Gastrointestinal: Nausea, Diarrhea Physical Examination Temp Pulse Resp BP Pulse Ox 97.5 F 61 20 146/53 H 97 12/15/19 12:00 12/15/19 12:00 12/15/19 12:00 12/15/19 12:00 12/15/19 12:00 General: Other (Deferred patient is in isolation) - Problems (1) Coronavirus infection Status: Acute Plan: Patient is 74 years of age admitted with nausea vomiting admitted with nausea vomiting most likely induced by oconnell virus he has no pulmonary complaints saturation satisfactory national infiltrate on the chest x-ray chemistries reviewed unremarkable patient has had no fever or desaturation during admission right not treatment for oconnell virus with steroids or resdesmir he is not indicated
== END 2019-12-15 13:35 | disposition home or self-care (01) | DRG 179 ==
LOC: ER 11:34 → ERHOLD 14:34 → 4TH 15:39
PROVIDERS: ADMIT Internal Medicine; ATTEND Internal Medicine
PROC: 8E0ZXY6 Isolation (ICD-10-PCS; principal; 2019-12-12)
PROC: 3E0336Z Introduction of Nutritional Substance into Peripheral Vein, Percutaneous Approach (ICD-10-PCS; 2019-12-14)
DX: U07.1 COVID-19 (principal); E86.0 Dehydration; Z88.1 Allergy status to other antibiotic agents; Z88.0 Allergy status to penicillin; Z79.02 Long term (current) use of antithrombotics/antiplatelets; Z79.4 Long term (current) use of insulin; Z79.899 Other long term (current) drug therapy; E11.9 Type 2 diabetes mellitus without complications; K21.9 Gastro-esophageal reflux disease without esophagitis; E78.5 Hyperlipidemia, unspecified; I25.2 Old myocardial infarction; Z98.51 Tubal ligation status; B96.89 Other specified bacterial agents as the cause of diseases classified elsewhere; Z90.49 Acquired absence of other specified parts of digestive tract; E66.9 Obesity, unspecified; Z68.36 Body mass index [BMI] 36.0-36.9, adult; Z79.82 Long term (current) use of aspirin; Z95.5 Presence of coronary angioplasty implant and graft
CPT/HCPCS: 36415; 71045; 80048; 80076; 81015; 82150; 82550; 82553; 82728; 82947; 83605; 83690; 84145; 84484; 85025; 85379; 85610; 85730; 86140; 87040; 96361; 96365; 96375; 99285; J1650; J2550; J3010; J7030

== ENCOUNTER 2020-03-20 08:12 | Day surgery (SDC) | payer OTHER, MEDICARE ==
[2020-03-17 12:52] LABS: Absolute Lymphocytes (CBC) 1.2 K/uL (0.7-4.9); Basophils % 0.8 % (0-1.3); Hematocrit 42.9 % (36.0-45.0); Lymphocytes % 24.3 % (15.3-44.8); MPV 8.3 fL (7.6-11.3); RBC Red Blood Cell Count 4.86 M/uL (3.86-4.86)
[2020-03-17 13:06] LABS: Potassium 3.8 mmol/L (3.5-5.1)
--- NOTE | 2020-03-17 14:21 | RAD REPORT ---
EXAM DESCRIPTION: RAD - Chest Pa And Lat (2 Views) - 03/17/2020 1:52 pm CLINICAL HISTORY: pre op, soft tissue wound surgery of the leg COMPARISON: Portable December 13 TECHNIQUE: Frontal and lateral views of the chest were obtained. FINDINGS: The lungs are underinflated. Patient has a chronic interstitial lung pattern is similar to prior imaging. No superimposed failure, infiltrate or mass identifiable. Heart size is normal and central vasculature is within normal limits. No pleural effusion or pneu mothorax seen. No acute bony finding noted. Proximal right humerus has been resected similar to brian aguilar. No aortic abnormality. IMPRESSION: Chronic interstitial lung disease similar to comparison. No acute finding.
--- OUTSIDE RECORDS SUMMARY | 2020-03-20 08:33 | XMS REPORT | Continuity of Care Document ---
:1945 [address] [facility] t Address [address] [place] [address] Care Team Providers Name Role Phone Doctor [...] ID 2019-08-05 2019-08-05 Orders Doctor IFTIKHAR [id number] 00:00:00 00:00:00 Only UnassKARIN jaramillo [id number] [place] [facility] [id number] Results This patient has no known results.
[2020-03-20] MEDS ORDERED: NA CHLORIDE 0.9% 1,000 ML ONE (08:56)
[2020-03-20] MEDS ORDERED: CEFAZOLIN/SWI 1gm 1 GM/10 ML SYR ONE (08:56)
[2020-03-20] MEDS ORDERED: BUPIVACAINE 0.5% PF 10 ML VIAL ONE (10:14)
[2020-03-20] MEDS ORDERED: FENTANYL CITR 100 MCG/2 ML ONE (10:29)
[2020-03-20] MEDS ORDERED: propofoL 200 MG/20 ML VIAL IV ONE (10:29)
[2020-03-20] MEDS ORDERED: LIDOCAINE 2% MPF 5 ML VIAL ONE (10:30)
[2020-03-20] MEDS ORDERED: ONDANSETRON 4 MG/2 ML VIAL ONE (10:30)
[2020-03-20] MEDS ORDERED: MIDAZOLAM HCL 2 MG/2 ML INJ ONE (10:30)
[2020-03-20] MEDS ORDERED: EPHEDRINE SULF 50 MG/ML VIAL ONE (10:51)
[2020-03-20 11:31] VITALS: O2SAT 100
--- NOTE | 2020-03-20 11:49 | OP ---
Date of Procedure: 03/20/2020 Surgeon: Mando Anthony MD Relief Man: MADAI Gonzalez. Preoperative Diagnosis: Infected wound, left thigh. Postoperative Diagnosis: Infected wound, left thigh. Procedure: Wide excision of infected wound left thigh 8 x 4 cm. Estimated Blood Loss: Minimal. Specimen: Culture and sensitivity and infected wound. Finding: As above. Anesthesia: General. Complications: None. Disposition: The patient tolerated the procedure, in stable condition, taken to Recovery in good gen eral condition. Procedure In Detail: The patient was brought to the OR and placed in supine position. General anest hesia was begun. The patient was prepped and draped in usual sterile fashion. Marcaine 0.5% was inf iltrated locally. 15 blade was used to make a 4 cm incision to excise the entire wound which was gabriela roximately 3.5 cm in diameter with central necrosis. Subcutaneous tissue was divided. Entire wound was excised and sent to the Pathology as specimen. Wound was irrigated. Bleeding was controlled wit h cautery. The wound that was excised was cut and cultures were done, and then a Jessica quarter-inc h was placed securely. 2-0 nylon and 3-0 Chromic were used to approximate subcutaneous tissue and 3- 0 nylon was used to loosely close skin. Dressing was applied. Patient was awakened and taken to Rec overy in good general condition. Discharge Note: Patient will go to Day Surgery and home when stable. Disposition: Home. Condition: Stable. Discharge Instructions: Resume home medications and diet. Activity as tolerated. No heavy lifting. Remove outer dressing in 2 days. Shower. Keep wound clean and dry. Follow up in my office in a aditya lai. Call for appointment. Tylenol No.3 one tablet p.o. q.4 p.r.n. pain and Cipro 500 mg p.o. q.12. /MODL Voice ID: [id number] Report ID: [id number]
[2020-03-20] MEDS ORDERED: CODEINE 30MG/APAP 300MG TAB ONE (12:47)
[2020-03-20 13:54] VITALS: BP 101/44; TEMP 97.1
--- NOTE | 2020-03-21 10:48 | EKG ---
Test Date: 2020-03-17 Test Time: 13:26:43 Popped Corn Oven Attendant: TG MEASUREMENT RESULTS: Intervals: Rate: 58 WY: 154 QRSD: 78 QT: 424 QTc: 416 [place]: P: 32 WY: 154 QRS: -22 T: 27 INTERPRETIVE STATEMENTS: Sinus bradycardia Cannot rule out Anterior infarct, age undetermined Abnormal ECG Compared to ECG 12/08/2019 08:01:37 Myocardial infarct finding now present Sinus rhythm no longer present Electronically Signed On 03-21-20 10:45:21 CDT by Don Scales
== END 2020-03-20 13:10 | disposition home or self-care (01) ==
LOC: OR 08:12
PROVIDERS: ATTEND Surgery
PROC: 0JBM0ZZ Excision of Left Upper Leg Subcutaneous Tissue and Fascia, Open Approach (ICD-10-PCS; principal; 2020-03-20 10:45)
DX: S71.102A Unspecified open wound, left thigh, initial encounter (principal); L08.9 Local infection of the skin and subcutaneous tissue, unspecified; Z20.828 Contact with and (suspected) exposure to other viral communicable diseases
CPT/HCPCS: 93005; 87070; 85025; 80048; 36415; 87205 ×2; 82947 ×2; 88304; 87075; 87077 ×2; 87186 ×2; 71046; 11404; U0002; J2704; J2250; J3010; J0690; J7030; J2405; 88305

== ENCOUNTER 2020-05-30 17:13 | Observation (INO) | payer OTHER, MEDICARE ==
[2020-05-30] MEDS ORDERED: NITROGLYCERIN 1 GM PKT TD SCH (18:00)
[2020-05-30] MEDS ORDERED: D50W 25 GM/50 ML SYRINGE IV PRN (18:08)
[2020-05-30] MEDS ORDERED: GLUCAGON 1 MG/VIAL IM PRN (18:08)
[2020-05-30] MEDS ORDERED: ASPIRIN 81 MG CHEWABLE TABLET ONE (18:23)
[2020-05-30 18:29] LABS: Absolute Lymphocytes (CBC) 1.8 K/uL (0.7-4.9); Basophils % 1.1 % (0-1.3); Hematocrit 45.2 % (36.0-45.0); Lymphocytes % 29.4 % (15.3-44.8); MPV 8.5 fL (7.6-11.3); RBC Red Blood Cell Count 5.21 M/uL (3.86-4.86)
[2020-05-30 18:35] LABS: Protime INR 0.91
[2020-05-30 18:50] LABS: ALT/SGPT 43 U/L (12-78); AST/SGOT 29 U/L (15-37); Alkaline Phosphatase 193 U/L (45-117); BUN Blood Urea Nitrogen 21 mg/dL (7-18); Bicarbonate 30 mmol/L (21-32); Bilirubin Direct < 0.1 mg/dL (0-0.2); Bilirubin Total 0.4 mg/dL (0.2-1.0); Glucose Level 254 mg/dL (74-106); Magnesium 2.2 mg/dL (1.8-2.4); NT PRO-BNP 457 pg/mL (<125); Potassium 4.2 mmol/L (3.5-5.1); Sodium Level 140 mmol/L (136-145); Troponin (Emerg Dept Use Only) < 0.02 ng/mL (0.0-0.045)
--- NOTE | 2020-05-30 18:57 | ER ---
Nurse's Notes [facility] Name: Karoline Paredes Age: 75 yrs Sex: Female : 1945 Arrival Date: 05/30/2020 Time: 17:16 Bed 8 Private MD: Jeffery Haines V Diagnosis: Chest pain, unspecified Presentation: 05/30 17:26 Chief complaint: Patient states: left shoulder pain radiating to left side of chest aa5 that began 1 week ago. Pt reports cough, denies SOB, denies fever. 17:26 Coronavirus screen: cough unrelated to allergies, Client presents with at least one aa5 sign or symptom that may indicate coronavirus-19. Standard/surgical mask placed on the client. Provider contacted for isolation considerations. Ebola Screen: Patient negative for fever greater than or equal to 101.5 degrees Fahrenheit, and additional compatible Ebola Virus Disease symptoms. Initial Sepsis Screen: Does the patient meet any 2 criteria? No. Patient's initial sepsis screen is negative. Does the patient have a suspected source of infection? No. Patient's initial sepsis screen is negative. Risk Assessment: Do you want to hurt yourself or someone else? Patient reports no desire to harm self or others. Onset of symptoms was May 2020. 17:26 Acuity: JOVITA 3 aa5 17:26 Method Of Arrival: Ambulatory aa5 Historical: - Allergies: 17:26 Bactrim; aa5 17:26 PENICILLINS; aa5 - PMHx: 17:26 Diabetes - NIDDM; GERD; Hyperlipidemia; Hypertension; Myocardial infarction; aa5 - PSHx: 17:26 Cholecystectomy; Tubal ligation; Heart stents; RIGHT SHOULDER; aa5 - Immunization history:: Adult Immunizations unknown. - Social history:: Smoking status: Patient denies any tobacco usage or history of. Patient/guardian denies using alcohol, street drugs. - Family history:: not pertinent. Screenin:48 Abuse screen: Denies threats or abuse. Nutritional screening: No deficits noted. tw2 Tuberculosis screening: No symptoms or risk factors identified. Fall Risk Secondary diagnosis (15 points) impaired mobility. Assessment: 17:26 General: Appears in no apparent distress. obese, well groomed, Behavior is calm, tw2 cooperative, appropriate for age. Pain: Complains of pain in chest. Neuro: Level of Consciousness is awake, alert, obeys commands, Oriented to person, place, time, situation. Cardiovascular: Capillary refill < 3 seconds Patient's skin is warm and dry. Respiratory: Reports cough that is Airway is patent Respiratory effort is even, unlabored, Respiratory pattern is regular, symmetrical. GI: No signs and/or symptoms were reported involving the gastrointestinal system. Abdomen is round non-distended, obese. : No signs and/or symptoms were reported regarding the genitourinary system. EENT: No signs and/or symptoms were reported regarding the EENT system. Musculoskeletal: Range of motion: intact in all extremities. 17:47 Reassessment: provider at bedside at this time. tw2 18:21 Reassessment: Patient appears in no apparent distress at this time. No changes from tw2 previously documented assessment. Patient and/or family updated on plan of care and expected duration. Pain level reassessed. Patient is alert, oriented x 3, equal unlabored respirations, skin warm/dry/pink. 19:11 Reassessment: report received from Nida. patient is alert and oriented. vital signs rv stable. free of chest pain at the moment. 19:25 General: Appears in no apparent distress. Behavior is appropriate for age. Neuro: Level ea of Consciousness is awake, alert, obeys commands, Oriented to person, place, time, situation. Cardiovascular: Patient's skin is warm and dry. Respiratory: Airway is patent Respiratory effort is even, unlabored, Respiratory pattern is regular, symmetrical. Derm: Skin is pink, warm \T\ dry. 20:24 Reassessment: Patient and/or family updated on plan of care and expected duration. Pain ea level reassessed. Patient is alert, oriented x 3, equal unlabored respirations, skin warm/dry/pink. 20:36 Reassessment: Patient is alert, oriented x 3, equal unlabored respirations, skin ea warm/dry/pink. Report called to receiving nurse. Vital Signs: 17:26 BP 117 / 35; Pulse 64; Resp 16 S; Temp 98.1(O); Pulse Ox 97% on R/A; Weight 81.65 kg aa5 (R); Height 5 ft. 6 in. (167.64 cm) (R); Pain 5/10; 18:21 BP 108 / 43; Pulse 59; Resp 12; Pulse Ox 99% on R/A; tw2 19:23 BP 119 / 55; Pulse 57; Resp 16; Pulse Ox 97% on R/A; ea 20:25 BP 115 / 54; Pulse 61; Resp 16; Pulse Ox 99% ; ea 17:26 Body Mass Index 29.05 (81.65 kg, 167.64 cm) aa5 ED Course: 17:16 Patient arrived in ED. ag5 17:16 Jeffery Haines MD is Private Physician. ag5 17:26 Arm band placed on Patient placed in an exam room, on a stretcher. aa5 17:26 Bed in low position. Call light in reach. monitoring tech on. Pulse ox on. NIBP on. tw2 17:35 Guille Gutiérrez MD is Attending Physician. ma2 17:38 Triage completed. aa5 17:38 Nida Gonzalez, BUSHRA is Primary Nurse. tw2 18:16 Missed attempt(s): 22 gauge in right antecubital area. per Tech. Maxwell Bleeding tw2 controlled, band aid applied, catheter tip intact. Missed attempt(s): 22 gauge in right antecubital area. by Tech. Maxwell Bleeding controlled, band aid applied, catheter tip intact. 18:17 Inserted saline lock: 20 gauge in left forearm, using aseptic technique. ,using aseptic tw2 technique. BUSHRA Reece Blood collected. 18:25 XRAY Chest (1 view) In Process Unspecified. EDMS 18:56 Jeffery Haines MD is Hospitalizing Provider. ma2 19:04 Report given to BUSHRA Zamora and BUSHRA Cantu. tw2 19:22 No provider procedures requiring assistance completed. Patient admitted, IV remains in ea place. Administered Medications: 18:16 Drug: Aspirin Chewable Tablet 324 mg Route: PO; tw2 19:06 Follow up: Response: No adverse reaction tw2 Outcome: 18:56 Decision to Hospitalize by Provider. ma2 19:22 Condition: stable ea 19:22 Instructed on the need for admit, Demonstrated understanding of instructions. 20:42 Admitted to Med/surg accompanied by tech, via wheelchair, room 219, with chart, Report ea called to Faustina TOMLINSON 21:03 Patient left the ED. ea Signatures: Dispatcher [employer] EDWY Giuliana Oconnell RN RN aa5 Nida Gonzalez RN RN tw2 Faustina Hawk RN RN ea Marla, MD REED Han ma2 Brandyn Kahn RN RN Maddie, [facility]
--- NOTE | 2020-05-30 18:57 | EDPHYS ---
Physician Documentation [facility] Name: Karoline Paredes Age: 75 yrs Sex: Female : 1945 Arrival Date: 05/30/2020 Time: 17:16 Bed 8 Private MD: Jeffery Haines V ED Physician Guille Gutiérrez HPI: 05/30 17:54 This 75 yrs old Female presents to ER via Ambulatory with complaints of ma2 Shoulder Pain, chest pain. 17:54 left trapezius. Associated signs and symptoms: Pertinent positives: chest pain, ma2 Pertinent negatives: diaphoresis, dyspnea. Severity of symptoms: At their worst the symptoms were moderate, in the emergency department the symptoms are unchanged. The patient has not experienced similar symptoms in the past. Historical: - Allergies: 17:26 Bactrim; aa5 17:26 PENICILLINS; aa5 - PMHx: 17:26 Diabetes - NIDDM; GERD; Hyperlipidemia; Hypertension; Myocardial infarction; aa5 - PSHx: 17:26 Cholecystectomy; Tubal ligation; Heart stents; RIGHT SHOULDER; aa5 - Immunization history:: Adult Immunizations unknown. - Social history:: Smoking status: Patient denies any tobacco usage or history of. Patient/guardian denies using alcohol, street drugs. - Family history:: not pertinent. ROS: 17:54 Constitutional: Negative for fever, chills, and weight loss. ma2 17:54 All other systems are negative. Exam: 17:54 Constitutional: This is a well developed, well nourished patient who is awake, alert, ma2 and in no acute distress. Head/Face: Normocephalic, atraumatic. Eyes: Pupils equal round and reactive to light, extra-ocular motions intact. Lids and lashes normal. Conjunctiva and sclera are non-icteric and not injected. Cornea within normal limits. Periorbital areas with no swelling, redness, or edema. ENT: Nares patent. No nasal discharge, no septal abnormalities noted. Tympanic membranes are normal and external auditory canals are clear. Oropharynx with no redness, swelling, or masses, exudates, or evidence of obstruction, uvula midline. Mucous membranes moist. Neck: Trachea midline, no thyromegaly or masses palpated, and no cervical lymphadenopathy. Supple, full range of motion without nuchal rigidity, or vertebral point tenderness. No Meningismus. Chest/axilla: Normal chest wall appearance and motion. Nontender with no deformity. No lesions are appreciated. Cardiovascular: Regular rate and rhythm with a normal S1 and S2. No gallops, murmurs, or rubs. Normal PMI, no JVD. No pulse deficits. Respiratory: Lungs have equal breath sounds bilaterally, clear to auscultation and percussion. No rales, rhonchi or wheezes noted. No increased work of breathing, no retractions or nasal flaring. Abdomen/GI: Soft, non-tender, with normal bowel sounds. No distension or tympany. No guarding or rebound. No evidence of tenderness throughout. Skin: Warm, dry with normal turgor. Normal color with no rashes, no lesions, and no evidence of cellulitis. MS/ Extremity: Pulses equal, no cyanosis. Neurovascular intact. Full, normal range of motion. Neuro: Awake and alert, GCS 15, oriented to person, place, time, and situation. Cranial nerves II-XII grossly intact. Motor strength 5/5 in all extremities. Sensory grossly intact. Cerebellar exam normal. Normal gait. Vital Signs: 17:26 BP 117 / 35; Pulse 64; Resp 16 S; Temp 98.1(O); Pulse Ox 97% on R/A; Weight 81.65 kg aa5 (R); Height 5 ft. 6 in. (167.64 cm) (R); Pain 5/10; 18:21 BP 108 / 43; Pulse 59; Resp 12; Pulse Ox 99% on R/A; tw2 19:23 BP 119 / 55; Pulse 57; Resp 16; Pulse Ox 97% on R/A; ea 20:25 BP 115 / 54; Pulse 61; Resp 16; Pulse Ox 99% ; ea 17:26 Body Mass Index 29.05 (81.65 kg, 167.64 cm) aa5 MDM: 17:35 Patient medically screened. ma2 17:54 Differential diagnosis: chest pain dd includes msk pain, vs angina vs costochondritis. ma2 18:56 Data reviewed: vital signs, nurses notes. Counseling: I had a detailed discussion with ma2 the patient and/or guardian regarding: the historical points, exam findings, and any diagnostic results supporting the discharge/admit diagnosis, the presence of at least one elevated blood pressure reading (>120/80) during this emergency department visit, the need for outpatient follow up. Response to treatment: the patient's symptoms have markedly improved after treatment. 05/30 17:54 Order name: Basic Metabolic Panel ga2 05/30 17:54 Order name: CBC with Diff ga2 05/30 17:54 Order name: LFT's [facility] 05/30 17:54 Order name: Magnesium [facility] 05/30 17:54 Order name: NT PRO-BNP ga2 05/30 17:54 Order name: PT-INR [facility] 05/30 17:54 Order name: Troponin (emerg Dept Use Only) ga2 05/30 17:55 Order name: Basic Metabolic Panel; Complete Time: 18:55 EDMS 05/30 17:55 Order name: CBC with Automated Diff; Complete Time: 18:44 EDMS 05/30 17:55 Order name: Liver (Hepatic) Function; Complete Time: 18:55 EDMS 05/30 17:55 Order name: Magnesium; Complete Time: 18:55 EDMS 05/30 17:55 Order name: NT PRO-BNP; Complete Time: 18:55 EDMS 05/30 17:58 Order name: COVID-19 ga2 05/30 18:08 Order name: Basic Metabolic Panel EDMS 05/30 17:39 Order name: EKG; Complete Time: 17:39 tw2 05/30 17:54 Order name: XRAY Chest (1 view) ga2 05/30 18:08 Order name: Regular EDMS 05/30 18:08 Order name: EKG Electrocardiogram EDMS 05/30 18:08 Order name: EKG Electrocardiogram EDMS 05/30 18:08 Order name: Basic Metabolic Panel EDMS 05/30 18:08 Order name: CBC with Automated Diff EDMS 05/30 18:08 Order name: CBC with Automated Diff EDMS 05/30 18:08 Order name: Troponin I EDMS 05/30 18:08 Order name: Troponin I EDMS 05/30 18:08 Order name: Troponin I EDMS 05/30 18:32 Order name: CORONAVIRUS EDMS 05/30 18:41 Order name: Protime (+INR); Complete Time: 18:44 EDMS 05/30 18:51 Order name: Troponin (Emerg Dept Use Only); Complete Time: 18:55 EDMS 05/30 19:20 Order name: SARS-COV-2 RT PCR EDMS 05/30 17:39 Order name: EKG - Nurse/Tech; Complete Time: 17:40 tw2 05/30 17:54 Order name: Cardiac monitoring; Complete Time: 17:59 ma2 05/30 17:54 Order name: IV Saline Lock; Complete Time: 18:20 ma2 05/30 17:54 Order name: Labs collected and sent; Complete Time: 18:21 ga2 05/30 17:54 Order name: O2 Per Protocol; Complete Time: 17:59 ma2 05/30 17:54 Order name: O2 Sat Monitoring; Complete Time: 17:59 ma2 05/30 18:08 Order name: EKG Electrocardiogram EDMS 05/30 18:08 Order name: EKG Electrocardiogram EDMS Administered Medications: 18:16 Drug: Aspirin Chewable Tablet 324 mg Route: PO; tw2 19:06 Follow up: Response: No adverse reaction tw2 Disposition: 05/30/20 18:56 Hospitalization ordered by Jeffery Haines for Observation. Preliminary diagnosis is Chest pain, unspecified. - Bed requested for Telemetry/MedSurg (observation). - Status is Observation. ea - Condition is Stable. - Problem is new. - Symptoms are unchanged. Signatures: Dispatcher [employer] EDIA Victoria Burch RN RN dw Calderon, Audri RN RN aa5 Nida Gonzalez RN RN tw2 Faustina Hawk RN RN ea Alzahri, Mohammad, MD MD ma2 Corrections: (The following items were deleted from the chart) 19:35 18:56 Hospitalization Ordered by Jeffery Haines MD for Observation. Preliminary diagnosis dw is Chest pain, unspecified. Bed requested for Telemetry/MedSurg (observation). Status is Observation. Condition is Stable. Problem is new. Symptoms are unchanged. ma2 21:03 19:35 05/30/2020 18:56 Hospitalization Ordered by Jeffery Haines MD for Observation. ea Preliminary diagnosis is Chest pain, unspecified. Bed requested for Telemetry/MedSurg (observation). Status is Observation. Condition is Stable. Problem is new. Symptoms are unchanged. dw
--- OUTSIDE RECORDS SUMMARY | 2020-05-30 19:07 | XMS REPORT | Continuity of Care Document ---
:1945 Author Organization [employer] Care Team Providers Name Role Phone [employer] Unavailable Un available Problems Problem Status Onset Classification Date Comments Sourc e Date Reported Amnesia (finding) Active Problem 05/06/2020 [facility] Diabetes mellitus Active Problem 05/06/2020 M ischer (disorder) Neuro Hypertensive Active Problem 05/06/2020 Mische r disorder, systemic N euro arterial (disorder) Hyperlipidemia Active Problem 05/06/2020 Misc her (disorder) Neuro Impaired cognition Active Problem 05/06/2020 [facility] (finding) Neuro Simple obesity Active Problem 05/06/2020 Misc her (disorder) Neuro Medications Medication Details Route Status Patient Ordering Order Source Instructions Provider Date Donepezil 5 mg = 1 Active Mischer hydrochloride 5 tab, PO, 020 Neuro MG Oral Tablet Bedtime, # [Aricept] 30 tab, 3 Refill(s), Pharmacy: [facility] 149, 167.64, cm, 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, 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, 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, kg, 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, Weight gabapentin 600 600 mg = 1 Active Mische r MG Oral Tablet tab, PO, 020 Neuro BID, 0 Refill(s) clopidogrel 75 75 mg = 1 Active Mischer mg oral tablet tab, PO, 020 Neuro Daily, 0 Refill(s) empagliflozin 25 25 mg = 1 Active Misch er MG Oral Tablet tab, PO, 020 Neuro [Jardiance] QAM, 0 Refill(s) losartan 100 mg 100 mg = 1 Active Misch er oral tablet tab, PO, 020 Neuro Daily, 0 Refill(s) Aspirin 81 MG 81 mg = 1 Active Mischer Enteric Coated tab, PO, 020 Neuro Tablet Daily, # 90 tab, 3 Refill(s) metoprolol 25 mg = 1 Active Mischer tartrate 25 mg tab, PO, 020 Neuro oral tablet BID, 0 Refill(s) atorvastatin 80 80 mg = 1 Active Mische r mg oral tablet tab, PO, 020 Neuro Daily, 0 Refill(s) venlafaxine 37.5 37.5 mg = 1 Active Mis ema MG Oral Tablet tab, PO, 020 Neuro Daily, 0 Refill(s) Allergies, Adverse Reactions, Alerts Substance Category Reaction Severity Reaction Status Date Comments S ource type Reported penicillin Assertion Drug Active Mis ema allergy Neuro Immunizations No Data Provided for This Section Results No Data Provided for This Section Pathology Reports No Data Provided for This Section Diagnostic Reports No Data Provided for This Section Consultation Notes No Data Provided for This Section Discharge Summaries No Data Provided for This Section History and Physicals No Data Provided for This Section Vital Signs Vital Sign Value Date Comments Source Systolic (mm Hg) 92 05/03/2020 [facility] Diastolic (mm Hg) 55 05/03/2020 [facility] Heart Rate 63 05/03/2020 [facility] Respitory Rate 16 05/03/2020 [facility] Height 167.64 cm 05/03/2020 [facility] Weight 81.818 05/03/2020 [facility] BMI Calculated 29.11 05/03/2020 [facility] Systolic (mm Hg) 118 03/22/2020 [facility] [place] Diastolic (mm Hg) 67 03/22/2020 [facility] Heart Rate 60 03/22/2020 [facility] Respitory Rate 16 03/22/2020 [facility] Height 165.1 cm 03/22/2020 [facility] Weight 82.273 03/22/2020 [facility] BMI Calculated 30.18 03/22/2020 [facility] Encounters Location Location Encounter Encounter Reason Attending ADM NC Stat Source Details Type Number For Provider Date Date Visit Outpatient [id number] Gwyn 03/22 Active [facility] [place] [facility] Out[facility] [id number] Gwyn 03/22 03/23 [facility] [place] [facility] [id number] Gwyn 05/03 Active [facility] Outpatient [id number] Gwyn 05/03 05/04 [facility] [place] Outpatient [id number] Gwyn 08/02 [facility] [place] Procedures Procedure Code Date Perfomer Comments Source Angioplasty [id number] [facility] Assessment and Plan No Data Provided for This Section Plan of Care No Data Provided for This Section Social History Social History Date Source Social History TypeResponse 03/22/2020 [facility] Employment/School Status: Employed. 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 Smoking Status Never smoker; Exposure to Tobacco Smoke Unable to obtain; Cigarette Smoking Last 365 Days No; Reg Smoking Cessation Counseling No entered on: 05/03/20 Family History No Data Provided for This Section Advance Directives No Data Provided for This Section Functional Status No Data Provided for This Section
--- OUTSIDE RECORDS SUMMARY | 2020-05-30 19:08 | XMS REPORT | Summary of Care ---
:1945 Author Organization [facility] Address [address] [place] [address]- Encounter HQ Lea(FIN) [id number] Date(s): 03/22/20 - 03/22/20 [facility] [address] [place] [address]- [phone] Discharge Disposition: Home or Self Care Attending Physician: Gwyn Kellogg MD Referring Physician: Gwyn Kellogg MD Vital Signs Most recent to oldest [Reference Range]: 1 Height 165.1 cm (03/22/20 11:27 AM) Blood Pressure [90-140/60-90 mmHg] 118/67 mmHg (03/22/20 11:27 AM) Respiratory Rate [14-20 BRMIN] 16 BRMIN (03/22/20 11:27 AM) Peripheral Pulse Rate [60-100 bpm] 60 bpm (03/22/20 11:27 AM) Weight 82.273 kg (03/22/20 11:27 AM) Body Mass Index 30.18 m2 (03/22/20 11:27 AM) Problem List Condition Effective Dates Status Health Status Informant Memory loss(Confirmed) Active Diabetes mellitus(Confirmed) Active HTN - Hypertension(Confirmed) Active Hyperlipidemia(Confirmed) Active MCI (mild cognitive Active impairment)(Confirmed) Simple obesity(Confirmed) Active Allergies, Adverse Reactions, Alerts Substance Reaction Severity Status penicillin Active Medications aspirin 81 mg tablet, enteric coated 81 mg = 1 tab, PO, Daily, # 90 tab, 3 Refill(s) Start Date: 03/22/20 Status: Orderedatorvastatin 80 mg oral tablet 80 mg = 1 tab, PO, Daily, 0 Refill(s) Start Date: 03/22/20 Status: Orderedclopidogrel 75 mg oral tablet 75 mg = 1 tab, PO, Daily, 0 Refill(s) Start Date: 03/22/20 Status: Orderedgabapentin 600 mg oral tablet 600 mg = 1 tab, PO, BID, 0 Refill(s) Start Date: 03/22/20 Status: OrderedJardiance 25 mg oral tablet 25 mg = 1 tab, PO, QAM, 0 Refill(s) Start Date: 03/22/20 Status: Orderedlosartan 100 mg oral tablet 100 mg = 1 tab, PO, Daily, 0 Refill(s) Start Date: 03/22/20 Status: Orderedmetoprolol tartrate 25 mg oral tablet 25 mg = 1 tab, PO, BID, 0 Refill(s) Start Date: 03/22/20 Status: Orderedvenlafaxine 37.5 mg oral tablet 37.5 mg = 1 tab, PO, Daily, 0 Refill(s) Start Date: 03/22/20 Status: Ordered Results No data available for this section Immunizations No data available for this section Procedures Procedure Date Related Diagnosis Body Site Status Angioplasty Completed Social History Social History Type Response Employment/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 Smoking Status Never smoker; Exposure to To bacco Smoke Unable to obtain; Cigarette Smoking Last 365 Days No; Reg Smoking Cessation Counseling No entered on: 03/22/20 Assessment and Plan No data available for this section
--- OUTSIDE RECORDS SUMMARY | 2020-05-30 19:08 | XMS REPORT | Summary of Care ---
:1945 Author Organization [facility] Address [address] [place] [address]- Encounter HQ Lea(FIN) [id number] Date(s): 05/03/20 - 05/03/20 [facility] [address] [place], [place] [address]- [phone] Discharge Disposition: Home or Self Care Attending Physician: Gwyn Kellogg MD Referring Physician: Gwyn Kellogg MD Vital Signs Most recent to oldest [Reference Range]: 1 Height 167.64 cm (05/03/20 11:14 AM) Blood Pressure [90-140/60-90 mmHg] 92/55 mmHg (05/03/20 11:14 AM) Respiratory Rate [14-20 BRMIN] 16 BRMIN (05/03/20 11:14 AM) Peripheral Pulse Rate [60-100 bpm] 63 bpm (05/03/20 11:14 AM) Weight 81.818 kg (05/03/20 11:14 AM) Body Mass Index 29.11 m2 (05/03/20 11:14 AM) Problem List Condition Effective Dates Status Health Status Informant Memory loss(Confirmed) Active Diabetes mellitus(Confirmed) Active HTN - Hypertension(Confirmed) Active Hyperlipidemia(Confirmed) Active MCI (mild cognitive Active impairment)(Confirmed) Simple obesity(Confirmed) Active Allergies, Adverse Reactions, Alerts Substance Reaction Severity Status penicillin Active Medications Aricept 5 mg oral tablet 5 mg = 1 tab, PO, Bedtime, # 30 tab, 3 Refill(s), Pharmacy: [facility] 149, 167.64, cm, 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
--- OUTSIDE RECORDS SUMMARY | 2020-05-30 19:08 | XMS REPORT | Continuity of Care Document ---
:1945 Author Organization [facility] t Address [address] [place] [address] Care Team Providers Name Role Phone Doctor Unassigned, Name Attending Clinician Unavailable Jared Kellogg Attending Clinician Problems Condition Condition Condition Status Onset Resolution Last Treating Co mments Source Name Details Category Date Date Treatment Clinician Date Amnesia Problem Active 2020-05-06 Marcos amaris (finding) 01:44:14 l Amnesia Soham (finding) Active Problem 05/06/2020 [facility] Diabetes Problem Active 2020-05-06 Mem oria mellitus 01:44:14 l (disorder) Diabetes He rmann mellitus (disorder) Active Problem 05/06/2020 [facility] Hypertensi Problem Active 2020-05-06 M emoria ve 01:44:14 l disorder, [place] systemic Hypertensi arterial ve (disorder) disorder, systemic arterial (disorder) Active Problem 05/06/2020 [facility] Hyperlipid Problem Active 2020-05-06 M emoria emia 01:44:14 l (disorder) Jorge Lusi n Hyperlipid emia (disorder) Active Problem 05/06/2020 [facility] Impaired Problem Active 2020-05-06 Mem oria cognition 01:44:14 l (finding) Impaired Her stephenson cognition (finding) Active Problem 05/06/2020 [facility] Simple Problem Active 2020-05-06 Memor ia obesity 01:44:14 l (disorder) Simple Herm dmitriy obesity (disorder) Active Problem 05/06/2020 [facility] Allergies, Adverse Reactions, Alerts Allergy Allergy Status Severity Reaction(s) Onset Inactive Treating Comm ents Source Name Type Date Date Clinician penicill penicill Active Memori a in in l [place] Social History Social Habit Start Date Stop Date Quantity Comments Source Social History 2020-03-22 2020-03-22 [facility] 16:43:41 16:43:41 Medications Ordered Filled Start Stop Current Ordering Indication Dosage Frequency Signature Comments Components Source Medication Medication Date Date Medication? 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, Weight gabapentin 2019- Yes 600 mg = 1 M emoria 600 MG Oral 9-30 tab, PO, l Tablet 16:31: BID, 0 Soham 00 Refill(s) clopidogrel 2019- Yes 75 mg = 1 M emoria 75 mg oral 9-30 tab, PO, l tablet 16:31: Daily, 0 [place] 00 Refill(s) empaglifloz 2019- Yes 25 mg = 1 M emoria in 25 MG 9-30 tab, PO, l Oral Tablet 16:31: QAM, 0 Herm dmitriy [Jardiance] 00 Refill(s) losartan 2019-0 Yes 100 mg = 1 Mem oria 100 mg oral 9-30 tab, PO, l tablet 16:31: Daily, 0 Soham 00 Refill(s) Aspirin 81 2020-0 Yes 81 mg = 1 Me moria MG Enteric 9-30 tab, PO, l Coated 16:31: Daily, # Soham Tablet 00 90 tab, 3 Refill(s) metoprolol 2019- Yes 25 mg = 1 Me moria tartrate 25 9-30 tab, PO, l mg oral 16:31: BID, 0 Soham tablet 00 Refill(s) atorvastati 2019-0 Yes 80 mg = 1 M emoria n 80 mg 9-30 tab, PO, l oral tablet 16:31: Daily, 0 He rmann 00 Refill(s) venlafaxine 2019-0 Yes 37.5 mg = M emoria 37.5 MG 9-30 1 tab, PO, l Oral Tablet 16:31: Daily, 0 He rmann 00 Refill(s) Vital Signs Vital Name Observation Time Observation Value Comments Source Systolic (mm Hg) 2020-05-03 17:14:00 Marcos rial Soham Diastolic (mm Hg) 2020-05-03 17:14:00 Mem orial [place] Heart Rate 2020-05-03 17:14:00 [facility] [place] Respitory Rate 2020-05-03 17:14:00 Memori al [place] Height 2020-05-03 17:14:00 167.64 cm [facility] Weight 2020-05-03 17:14:00 [facility] BMI Calculated 2020-05-03 17:14:00 Memori al Soham Systolic (mm Hg) 2020-03-22 16:27:00 Marcos rial Soham Diastolic (mm Hg) 2020-03-22 16:27:00 Mem orial [place] Heart Rate 2020-03-22 16:27:00 [facility] Respitory Rate 2020-03-22 16:27:00 Memori al [place] Height 2020-03-22 16:27:00 165.1 cm [facility] [place] Weight 2020-03-22 16:27:00 [facility] [place] BMI Calculated 2020-03-22 16:27:00 Memori al Soham Procedures Procedure Date / Time Performed Performing Clinician Sourc e Angioplasty [facility] [place] Encounters Start End Encounter Admission Attending Care Care Encounter Source Date/Time Date/Time Type Type Clinicians Facility Department ID 2020-05-22 2020-05-22 Orders Doctor BUITRAGO [id number] 00:00:00 00:00:00 Only Unassigned, KARIN [id number] [place] [facility] [id number] 2020-05-03 2020-05-03 Outpatient JAMAAL KelloggSCHMARCELINO HINTONSCHMARCELINO [id number] 11:00:00 23:59:59 Gwyn 01 Jared 2020-03-22 2020-03-22 Outpatient JAMAAL KelloggSCHMARCELINO HINTONSCHER [id number] 11:00:00 23:59:59 Gwyn 00 Jared 2019-08-05 2019-08-05 Orders Doctor IFTIKHAR [id number] 00:00:00 00:00:00 Only Unassigned, KARIN [id number] [place] [facility] [id number] Results This patient has no known results.
--- OUTSIDE RECORDS SUMMARY | 2020-05-30 19:08 | XMS REPORT | Summary of Care ---
:1945 Author Organization [facility] Address [address] [place] [address] Care Team Providers Name Role Phone Jeffery Haines Primary Care Provider Encounter Details Date Type Department Care Team Description 05/22/2020 Orders Only [facility] Doctor Unassigned, [address] [facility] [place] [address] [address] [id number] Allergies Active Allergy Reactions Severity Noted Date Comments Penicillins Rash 09/16/2018 Sulfa (Sulfonamide Antibiotics) Unknown - See comments 09/17/2018 documented as of this encounter (statuses as of 05/22/2020) Medications Medication Sig Dispensed Refills Start Date [...] as of this encounter (statuses as of 05/22/2020) Active Problems Not on filedocumented as of this encounter (statuses as of 05/22/2020) Social History Tobacco Use Types Packs/Day Years Used Date Never Smoker Smokeless Tobacco: Never Used Sex Assigned at Date Recorded Not on file documented as of this encounter Last Filed Vital Signs Not on filedocumented in this encounter Plan of Treatment Health Maintenance Due Date Last Done Comments HEPATITIS C (HCV) SCREEN 1945 Depression Screening 1958 DTaP,Tdap,and Td Vaccines (1 - Tdap) 1965 Breast Cancer Screening (MAMMOGRAM) 1986 COLON CANCER SCREENING ANNUAL FIT/FOBT 1996 COLON CANCER SCREENING FIT DNA EVERY 3 YEARS 1996 COLON CANCER SCREENING SIGMOIDOSCOPY EVERY 5 YEARS 1996 COLONOSCOPY 1996 Colorectal Cancer Screening 1996 Zoster Recombinant Vaccine (SHINGRIX) (1 of 2) 1996 Medicare Wellness Visit 2011 Osteoporosis Screening 2011 PNEUMOCOCCAL VACCINES 65+ (1 of 1 - PPSV23) 2011 INFLUENZA VACCINE (#1) 2020 documented as of this encounter Implants Implanted Type Area Tower Operator Device Shelf Model / Serial Identifier Expiration / Lot Date Lens, Esteban #[id number] - Sna LENS Left: Eye Esteban 03/25 [id number] / Implanted: Qty: 1 on 09/17/2018 by Fernando Castellano MD at [facility] N A / [id number] documented as of this encounter Procedures Procedure Name Priority Date/Time Associated Diagnosis Comme nts ASSIGNMENT OF BENEFITS Routine 05/22/2020 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 edicare [employer] sent [phone] LUIS ANGEL MIRZA [phone] [facility] [id number] 2018-Pre [address] [facility] sent [id number] Supplement MEDICARE [place] SUPPLEMENT LUIS ANGEL HOYOS [id number] documented as of this encounter
--- NOTE | 2020-05-30 19:18 | RAD REPORT ---
EXAM DESCRIPTION: RAD - Chest Single View - 05/30/2020 6:25 pm CLINICAL HISTORY: CHEST PAIN, left side COMPARISON: Two view chest February 2020 TECHNIQUE: AP portable chest image was obtained 05/30/2020 6:25 pm . FINDINGS: Lungs are clear. Interstitial pattern matches comparison. No hilar mass or lymphadenopathy . Heart and vasculature are normal. No measurable pleural effusion and no pneumothorax. No acute bone finding. Proximal right humerus is been resected many years earlier. No acute aortic findings suspec sarah. IMPRESSION: No acute cardiopulmonary process. No significant change from comparison study.
[2020-05-30 21:53] VITALS: BMI 29.2
[2020-05-30] MEDS: NITROGLYCERIN 1 GM PKT TD SCH (23:17)
[2020-05-30] MEDS: INSULIN -REGULAR HUMAN 50 UNIT/0.5 ML ML SQ SCH (23:18)
[2020-05-31] MEDS ORDERED: DIGOXIN 0.25 MG/ML AMP ONE (00:32)
[2020-05-31 04:32] LABS: Absolute Lymphocytes (CBC) 1.8 K/uL (0.7-4.9); Basophils % 0.8 % (0-1.3); Hematocrit 39.6 % (36.0-45.0); Lymphocytes % 37.3 % (15.3-44.8); MPV 8.7 fL (7.6-11.3); RBC Red Blood Cell Count 4.58 M/uL (3.86-4.86)
[2020-05-31 04:55] LABS: Potassium 4.3 mmol/L (3.5-5.1)
[2020-05-31] MEDS: NITROGLYCERIN 1 GM PKT TD SCH (06:34)
--- NOTE | 2020-05-31 07:14 | EKG ---
Test Date: 2020-05-30 Test Time: 17:41:33 Junior Marketing Associate: CARLA MEASUREMENT RESULTS: Intervals: Rate: 64 UT: 158 QRSD: 74 QT: 412 QTc: 425 [place]: P: 30 UT: 158 QRS: -20 T: 37 INTERPRETIVE STATEMENTS: Normal sinus rhythm Low voltage QRS Borderline ECG Compared to ECG 03/17/2020 13:26:43 Low QRS voltage now present Sinus bradycardia no longer present Myocardial infarct finding no longer present Electronically Signed On 05-31-20 07:09:05 INSPECTOR FINISHING by Don Scales
[2020-05-31] MEDS: INSULIN -REGULAR HUMAN 50 UNIT/0.5 ML ML SQ SCH ×2 (08:51→12:11)
[2020-05-31] MEDS ORDERED: MAGNESIUM OXIDE 400 MG TAB PO SCH (09:00)
[2020-05-31] MEDS ORDERED: ENOXAPARIN 80 MG/0.8 ML SQ SCH (09:00)
[2020-05-31] MEDS ORDERED: LOSARTAN POTASSIUM 50 MG TABLET PO SCH (09:00)
[2020-05-31] MEDS ORDERED: ASPIRIN EC 81 MG TAB PO SCH ×2 (09:00)
[2020-05-31] MEDS ORDERED: HOME MED 1 EA UNK (Multivit-Min/Iron/Folic/Lutein [Centrum Silver Women Tablet] Tablet) PO SCH (09:00)
[2020-05-31] MEDS ORDERED: HOME MED 1 EA UNK (Mecobalamin [B12 Active] 1,000 MCG Tab.Chew) PO SCH (09:00)
[2020-05-31 11:54] VITALS: O2SAT 92
[2020-05-31 14:50] VITALS: BP 121/66; TEMP 97.8
[2020-05-31] MEDS ORDERED: VENLAFAXINE HCL 37.5 MG PO SCH (17:00)
[2020-05-31] MEDS ORDERED: METOPROLOL TAR 25 MG TAB PO SCH (18:00)
--- NOTE | 2020-05-31 18:33 | P.SSS ---
Patient History Date of Service: 05/31/20 Reason for admission: SHOULDER PAIN History of Present Illness: MS. SALGADO IS DIABETIC WITH HTN, WHO HAS ARTHRITIS ALSO. SHE COMES WITH L SHOULDER PAIN FOR DAYS, IT WENT TO HER L CHEST AND SO SHE CAME TO ER AND ER DOCTOR DECIDED TO ADMIT HER. SHE HAS NO DIAPHORESIS, NAUSEA, VOMITING OR SYNCOPE. Allergies Penicillins Allergy (Verified 03/17/20 13:08) Unknown sulfamethoxazole [From Bactrim] Allergy (Verified 03/17/20 13:08) Unknown trimethoprim [From Bactrim] Allergy (Verified 03/17/20 13:08) Unknown Home Medications: Atorvastatin Calcium [Lipitor] 80 mg PO BEDTIME 01/30/18 Losartan Potassium 100 mg PO DAILY 01/30/18 Metoprolol Tartrate 25 mg PO BID 6AM 6PM 01/30/18 Venlafaxine HCl 27.5 mg PO DAILY AT SUPPER 01/30/18 Magnesium Oxide [Mag 0X*] 400 mg PO BID 12/12/19 Aspirin [Aspirin EC 81 MG] 81 mg PO DAILY 05/30/20 Donepezil [Aricept*] 5 mg PO BEDTIME 05/30/20 Mecobalamin [B12 Active] 1 tab PO DAILY 05/30/20 Multivit-Min/Iron/Folic/Lutein [Centrum Silver Women Tablet] 1 tab PO DAILY 05/30/20 - Past Medical/Surgical History Has patient received pneumonia vaccine in the past: Yes Diabetic: Yes -: Diabetes -: GErd -: Hyperlipidemia -: HTN -: CA -: tubaligation -: cholecystectomy -: Knee surgery -: 3 right shoulder surgeries - Family History Father -: Hypertension, Stroke Mother -: Heart disease, Other (see notes) Notes: ALZHEIMER'S Brother -: Heart disease - Social History Smoking Status: Never smoker Alcohol use: No CD- Drugs: No Caffeine use: Yes Place of Residence: Home Review of Systems 10-point ROS is otherwise unremarkable Physical Examination - Vital Signs Temperature: 97.8 F Blood Pressure: 121/66 Pulse: 81 Respirations: 18 Pulse Ox (%): 99 - Physical Exam General: Mild distress HEENT: Atraumatic, PERRLA, Mucous membr. moist/pink, EOMI, Sclerae nonicteric Neck: Supple, 2+ carotid pulse no bruit, No LAD, Without JVD or thyroid abnormality Respiratory: Clear to auscultation bilaterally, Normal air movement Cardiovascular: Regular rate/rhythm, Normal S1 S2 Gastrointestinal: Normal bowel sounds, No tenderness Musculoskeletal: No tenderness Integumentary: No rashes Neurological: Normal gait, Normal speech, Normal strength at 5/5 x4 extr, Normal tone, Normal affect Lymphatics: No axilla or inguinal lymphadenopathy - Diagnosis (Problem(s)) (1) Atypical chest pain Status: Acute Plan: CHARACTER OF THIS PAIN IS NOT CARDIAC. ER ADMITS ALL KINDS OF PAIN PATIENTS. SHOULDER PAIN IS FROM ARTHRITIS. 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 (2) Diabetes mellitus type 2 in obese Onset Date: 02/02/18 Status: Chronic - Disposition Disposition: ROUTINE DISCHARGE Condition: FAIR
[2020-05-31] MEDS ORDERED: DONEPEZIL HCL 5 MG TAB PO SCH (21:00)
[2020-05-31] MEDS ORDERED: ATORVASTATIN 80 MG TAB PO SCH (21:00)
--- NOTE | 2020-06-04 14:17 | CON ---
Date of Consultation: 05/31/2020 The patient was admitted on 05/30/[address] Haines's service. I saw her on 05/31/2020. Reason For Consultation: Chest pain. History Of Present Illness: Ms. Paredes is a 75-year-old woman, who has a history of diabetes, hyperte nsion, dyslipidemia, neuropathy, depression, coronary artery disease status post stent in the past. Came in with very little chest pain that is more of soreness on the left anterior chest; however, she had a lot of dizziness and nausea. No vomiting. Denied any PND, orthopnea, pedal edema, palpitatio ns, or syncope. Her troponin was negative. She denied any fever or chills or cough. Allergies: INCLUDE PENICILLIN AND BACTRIM. Review of Systems: Negative. Social History: Negative. Family History: Negative. Medications: At home include Lipitor, Plavix, insulin, Neurontin, glimepiride, losartan, magnesium, metoprolol and Venlafaxine. Physical Examination: General: She was pleasant, no acute distress. Vital Signs: Stable, afebrile, sinus rhythm. HEENT: Negative. Neck: Supple without any bruit, lymphadenopathy, JVD, or thyromegaly. Chest: Clear to auscultation and percussion. Cardiac: Revealed a regular rhythm and rate. No murmurs, gallops, or rubs. Abdomen: Benign. Extremities: Revealed no clubbing, cyanosis, or edema. Diagnostic Data: Showed a BNP of 457, creatinine of 1.43. Impression And Plan: Nausea and dizziness could be secondary to orthostatic hypotension. Apparently , she just started taking Lasix, which she has not taken in the past. There has no myocardial infarc tion or acute coronary syndrome. She has multiple cardiac risk factors including diabetes, hypertens ion, dyslipidemia, well controlled. She has mild renal insufficiency, neuropathy, depression. She h as had a history of coronary artery disease status post stent, but I do not think we are dealing with any acute coronary syndrome. I will discuss the case further with Dr. Haines. I do not think she ne eds any extensive cardiac workup. We may have to take her off the Lasix for now. May need a proton pump inhibitor. I can certainly see her in the office in the next 2 weeks and if she goes home. NB/MODL Voice ID: [id number] Report ID: [id number]
== END 2020-05-31 15:05 | disposition home or self-care (01) ==
LOC: ER 17:13 → ERHOLD 18:06 → 2ND 20:45
PROVIDERS: ADMIT Internal Medicine; ATTEND Internal Medicine
DX: R07.89 Other chest pain (principal); M25.512 Pain in left shoulder; E11.9 Type 2 diabetes mellitus without complications; K21.9 Gastro-esophageal reflux disease without esophagitis; E78.5 Hyperlipidemia, unspecified; I10 Essential (primary) hypertension; Z20.828 Contact with and (suspected) exposure to other viral communicable diseases; I25.2 Old myocardial infarction; E66.9 Obesity, unspecified; M19.90 Unspecified osteoarthritis, unspecified site; Z95.5 Presence of coronary angioplasty implant and graft; Z68.29 Body mass index [BMI] 29.0-29.9, adult
CPT/HCPCS: 93005; 85025 ×2; 80048 ×2; 36415; 83735; 85610; 82947 ×3; 80076; 84484 ×3; 83880; 71045; 99285; U0003; G0378 ×3; J1160

== ENCOUNTER 2021-01-01 18:28 | Emergency (ER) | payer OTHER, MEDICARE ==
--- OUTSIDE RECORDS SUMMARY | 2021-01-01 18:32 | XMS REPORT | Continuity of Care Document ---
:1945 Author Organization [facility] t Address [address] [place] [address] Care Team Providers Name Role Phone BessJared Attending Clinician Doctor Unassigned, Name Attending Clinician Unavailable Problems Condition Condition Condition Status Onset Resolution Last Treating Co mments Source Name Details Category Date Date Treatment Clinician Date Amnesia Problem Active 2020-12-09 Marcos amaris (finding) 01:46:45 l Amnesia Soham (finding) Active Problem 12/09/2020 [facility] Diabetes Problem Active 2020-12-09 Mem oria mellitus 01:46:45 l (disorder) Diabetes He rmann mellitus (disorder) Active Problem 12/09/2020 [facility] Hypertensi Problem Active 2020-12-09 M emoria ve 01:46:45 l disorder, Soham systemic Hypertensi arterial ve (disorder) disorder, systemic arterial (disorder) Active Problem 12/09/2020 [facility] Hyperlipid Problem Active 2020-12-09 M emoria emia 01:46:45 l (disorder) Jorge Luis n Hyperlipid emia (disorder) Active Problem 12/09/2020 [facility] Impaired Problem Active 2020-12-09 Mem oria cognition 01:46:45 l (finding) Impaired Her stephenson cognition (finding) Active Problem 12/09/2020 [facility] Simple Problem Active 2020-12-09 Memor ia obesity 01:46:45 l (disorder) Simple Herm dmitriy obesity (disorder) Active Problem 12/09/2020 [facility] Allergies, Adverse Reactions, Alerts Allergy Allergy Status Severity Reaction(s) Onset Inactive Treating Comm ents Source Name Type Date Date Clinician penicill penicill Active Memori a in in l Soham Social History Social Habit Start Date Stop Date Quantity Comments Source Social History 2020-09-05 2020-09-05 [facility]io 20:47:02 20:47:02 Medications Ordered Filled Start Stop Current Ordering Indication Dosage Frequency Signature Comments Components Source Medication Medication Date Date Medication? Clinician (SIG) Name Name Estrogens, Yes 0 Memoria Conjugated 6-16 Refill(s) l (RETIREMENT) 0.3 19:08: [place] MG Oral 00 Tablet [Premarin] Donepezil Yes 10 mg = 1 Mem oria hydrochlori 3-16 tab, PO, l de 10 MG 20:36: Bedtime, # Her stephenson Oral Tablet 00 30 tab, 4 [Aricept] Refill(s), Pharmacy: [facility] 149, 162.56, cm, 09/05/20 15:12:00 CDT, Height, 82.727, kg, 09/05/20 15:12:00 CDT, Weight Donepezil 2019-06 Yes 5 mg = 1 Marcos amaris hydrochlori 1-11 tab, PO, l de 5 MG 17:29: Bedtime, # Herm dmitriy Oral Tablet 00 30 tab, 3 [Aricept] Refill(s), Pharmacy: [facility] 149, 167.64, cm, 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, 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, 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, kg, 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, Weight gabapentin 2019-0 Yes 600 mg = 1 M emoria 600 MG Oral 9-30 tab, PO, l Tablet 16:31: BID, 0 Soham 00 Refill(s) clopidogrel 2020-0 Yes 75 mg = 1 M emoria 75 mg oral 9-30 tab, PO, l tablet 16:31: Daily, 0 Soham 00 Refill(s) empaglifloz 2020-0 Yes 25 mg = 1 M emoria in 25 MG 9-30 tab, PO, l Oral Tablet 16:31: QAM, 0 Herm dmitriy [Jardiance] 00 Refill(s) losartan 2020-0 Yes 100 mg = 1 Mem oria 100 mg oral 9-30 tab, PO, l tablet 16:31: Daily, 0 [place] 00 Refill(s) Aspirin 81 2019- Yes 81 mg = 1 Me moria MG Enteric 30 tab, PO, l Coated 16:31: Daily, # [place] Tablet 00 90 tab, 3 Refill(s) metoprolol Yes 25 mg = 1 Me moria tartrate 25 -30 tab, PO, l mg oral 16:31: BID, 0 [place] tablet 00 Refill(s) atorvastati Yes 80 mg = 1 M emoria n 80 mg 30 tab, PO, l oral tablet 16:31: Daily, 0 He rmann 00 Refill(s) venlafaxine Yes 37.5 mg = M emoria 37.5 MG 30 1 tab, PO, l Oral Tablet 16:31: Daily, 0 He rmann 00 Refill(s) Vital Signs Vital Name Observation Time Observation Value Comments Source Systolic (mm Hg) 2020-12-06 19:04:00 Marcos rial [place] Diastolic (mm Hg) 2020-12-06 19:04:00 Mem orial Soham Heart Rate 2020-12-06 19:04:00 [facility] Respitory Rate 2020-12-06 19:04:00 Memori al Soham Height 2020-12-06 19:04:00 167.64 cm [facility] Soham Weight 2020-12-06 19:04:00 [facility] BMI Calculated 2020-12-06 19:04:00 Memori al Soham Systolic (mm Hg) 2020-09-05 20:03:00 Marcos rial Soham Diastolic (mm Hg) 2020-09-05 20:03:00 Mem orial [place] Heart Rate 2020-09-05 20:03:00 [facility] [place] Respitory Rate 2020-09-05 20:03:00 Memori al [place]am Height 2020-09-05 20:03:00 162.56 cm [facility] [place] Weight 2020-09-05 20:03:00 [facility] [place] BMI Calculated 2020-09-05 20:03:00 Memori al [place] Respitory Rate 2020-05-03 17:14:00 Memori al [place] Height 2020-05-03 17:14:00 167.64 cm [facility] Weight 2020-05-03 17:14:00 [facility] BMI Calculated 2020-05-03 17:14:00 Memori al [place] Systolic (mm Hg) 2020-05-03 17:14:00 Marcos rial [place] Diastolic (mm Hg) 2020-05-03 17:14:00 Mem orial [place] Heart Rate 2020-05-03 17:14:00 [facility] [place] Systolic (mm Hg) 2020-03-22 16:27:00 Marcos rial [place] Diastolic (mm Hg) 2020-03-22 16:27:00 Mem orial [place] Heart Rate 2020-03-22 16:27:00 [facility] [place] Respitory Rate 2020-03-22 16:27:00 Memori al [place] Height 2020-03-22 16:27:00 165.1 cm [facility] Weight 2020-03-22 16:27:00 [facility] [place] BMI Calculated 2020-03-22 16:27:00 Memori al Soham Procedures Procedure Date / Time Performed Performing Clinician Sourc e Angioplasty [facility] [place] Encounters Start End Encounter Admission Attending Care Care Encounter Source Date/Time Date/Time Type Type Clinicians Facility Department ID 2020-12-06 2020-12-06 Outpatient [facility]A [facility] [id number] 14:00:00 23:59:59 Gwyn 05 Jared 2020-09-05 2020-09-05 Outpatient [facility]ELLA [facility] [id number] 15:00:00 23:59:59 Gwyn 04 Jared 2020-08-02 2020-08-02 Outpatient ARABELLA [facility]ogg[facility] [id number] 11:00:00 11:00:00 Gwyn 02 Jared 2020-06-13 2020-06-13 Orders Doctor BUITRAGO [id number] 00:00:00 00:00:00 Only Unassigned, KARIN [id number] [place] [facility] [id number] 2020-05-22 2020-05-22 Orders Doctor IFTIKHAR [id number] 00:00:00 00:00:00 Only Unassigned, KARIN [id number] [place] [facility] [id number] 2020-05-03 2020-05-03 [facility] [id number] 11:00:00 23:59:59 Gwyn Jared 2020-03-22 2020-03-22 [facility] [id number] 11:00:00 23:59:59 Gwyn 00 Jared 2019-08-05 2019-08-05 Orders Doctor BUITRAGO [id number] 00:00:00 00:00:00 Only Unassigned, KARIN [id number] [place] [facility] [id number] Results This patient has no known results.
--- NOTE | 2021-01-01 21:17 | ER ---
Nurse's Notes [facility] Name: Karoline Paredes Age: 75 yrs Sex: Female : 1945 Arrival Date: 01/01/2021 Time: 18:32 Bed External Waiting Private MD: eJffery Haines V Diagnosis: Presentation: 01/01 19:31 Chief complaint: Patient states: Lower abdominal pain x 1 week, getting worse. Reports ca1 diarrhea off and on. Coronavirus screen: Client denies travel out of the [place] in the last 14 days. diarrhea, Client presents with at least one sign or symptom that may indicate coronavirus-19. Standard/surgical mask placed on the client. Provider contacted for isolation considerations. Ebola Screen: Patient negative for fever greater than or equal to 101.5 degrees Fahrenheit, and additional compatible Ebola Virus Disease symptoms Patient denies exposure to infectious person. Patient denies travel to an Ebola-affected area in the 21 days before illness onset. No symptoms or risks identified at this time. Initial Sepsis Screen: Does the patient meet any 2 criteria? No. Patient's initial sepsis screen is negative. Does the patient have a suspected source of infection? No. Patient's initial sepsis screen is negative. Risk Assessment: Do you want to hurt yourself or someone else? Patient reports no desire to harm self or others. Onset of symptoms was January 01, 2021. 19:31 Method Of Arrival: Ambulatory ca1 19:31 Acuity: JOVITA 3 ca1 Historical: - Allergies: 19:33 Bactrim; ca1 19:33 PENICILLINS; ca1 - PMHx: 19:33 Diabetes - NIDDM; GERD; Hyperlipidemia; Hypertension; Myocardial infarction; ca1 - Immunization history:: Client reports receiving the 2nd dose of the Covid vaccine, Client reports receiving the 1st dose of the Covid vaccine. - Social history:: Smoking status: Patient denies any tobacco usage or history of. Vital Signs: 19:31 Pulse 68; Resp 16 S; Temp 98.2(TE); Pulse Ox 100% on R/A; Weight 77.11 kg (R); Height 5 ca1 ft. 6 in. (167.64 cm) (R); Pain 8/10; 19:34 BP 131 / 78; ca1 19:31 Body Mass Index 27.44 (77.11 kg, 167.64 cm) ca1 ED Course: 18:32 Patient arrived in ED. mr 18:32 Jeffery Haines MD is Private Physician. mr 19:33 Triage completed. ca1 19:33 Arm band placed on right wrist. ca1 Administered Medications: No medications were administered Outcome: 21:16 Patient left the ED. em Signatures: Nora Smith mr Fercho Gonzalez, RN RN em Aleshia Sanchez RN RN ca1
[2021-01-01 21:20] VITALS: TEMP 98.2; O2SAT 100
[2021-01-01 21:21] VITALS: BP 131/78
== END 2021-01-01 21:16 | disposition left against medical advice (07) ==
LOC: ER 18:28
DX: Z02.9 Encounter for administrative examinations, unspecified (principal)
CPT/HCPCS: 99281

== ENCOUNTER 2021-01-02 07:29 | Emergency (ER) | payer OTHER, MEDICARE ==
--- OUTSIDE RECORDS SUMMARY | 2021-01-02 07:32 | XMS REPORT | Continuity of Care Document ---
:1945 Author Organization [facility] t Address [address] [place] [address] Care Team Providers Name Role Phone BessJared [...] Quantity Comments Source Social History 2020-09-05 2020-09-05 [facility] hilario 20:47:02 20:47:02 Medications Ordered Filled Start Stop Current Ordering Indication Dosage Frequency Signature Comments Components Source Medication Medication Date Date Medication? Clinician (SIG) Name Name Estrogens, Yes 0 Memoria Conjugated 6-16 Refill(s) l (GROUP HOME) 0.3 19:08: [place] MG Oral 00 Tablet [Premarin] Donepezil Yes 10 mg = 1 Mem oria hydrochlori 3-16 tab, PO, l de 10 MG 20:36: Bedtime, # Her stephenson Oral Tablet 00 30 tab, 4 [Aricept] Refill(s), Pharmacy: [facility] 149, 162.56, cm, 09/05/20 15:12:00 CDT, Height, 82.727, kg, 09/05/20 15:12:00 CDT, Weight Donepezil 2019-06 Yes 5 mg = 1 Marcos amaris hydrochlori 1-11 tab, PO, l de 5 MG 17:29: Bedtime, # Herm dmitriy Oral Tablet 00 30 tab, 3 [Aricept] Refill(s), Pharmacy: [facility] 149, 167.64, cm, 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, 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, 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, kg, 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, 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 gabapentin 2019-0 Yes 600 mg = [...] tab, PO, l tablet 16:31: Daily, 0 [place] 00 Refill(s) Aspirin 81 2019- Yes 81 mg = 1 Me moria MG Enteric 30 tab, PO, l Coated 16:31: Daily, # [place] Tablet 00 90 tab, 3 Refill(s) metoprolol Yes 25 mg = 1 Me moria tartrate 25 -30 tab, PO, l mg oral 16:31: BID, 0 [place] tablet 00 Refill(s) atorvastati Yes 80 mg [...] Systolic (mm Hg) 2020-12-06 19:04:00 Marcos rial [place] Diastolic (mm Hg) 2020-12-06 19:04:00 Mem orial Soham Heart Rate 2020-12-06 19:04:00 [facility] [place] Respitory Rate 2020-12-06 19:04:00 Memori al Soham Height 2020-12-06 19:04:00 167.64 cm [facility] Soham Weight 2020-12-06 19:04:00 [facility] BMI Calculated 2020-12-06 19:04:00 Memori al Soham Systolic (mm Hg) 2020-09-05 20:03:00 Marcos rial Soham Diastolic (mm Hg) 2020-09-05 20:03:00 Mem orial [place] Heart Rate 2020-09-05 20:03:00 [facility] [place] Respitory Rate 2020-09-05 20:03:00 Memori al Soham Height 2020-09-05 20:03:00 162.56 cm [facility] [place] Weight 2020-09-05 20:03:00 [facility] [place] BMI Calculated 2020-09-05 20:03:00 Memori al S[place]am Respitory Rate 2020-05-03 17:14:00 Memori al [place] Height 2020-05-03 17:14:00 167.64 cm [facility] Weight 2020-05-03 17:14:00 [facility] BMI Calculated 2020-05-03 17:14:00 Memori al S[facility] Systolic (mm Hg) 2020-05-03 17:14:00 Marcos rial [place] Diastolic (mm Hg) 2020-05-03 17:14:00 Mem orial [place] Heart Rate 2020-05-03 17:14:00 [facility] [place] Systolic (mm Hg) 2020-03-22 16:27:00 Marcos rial [place] Diastolic (mm Hg) 2020-03-22 16:27:00 Mem orial Soham Heart Rate 2020-03-22 16:27:00 [facility] [place] Respitory Rate 2020-03-22 16:27:00 Memori al Soham Height 2020-03-22 16:27:00 165.1 cm [facility] Weight 2020-03-22 16:27:00 [facility] BMI Calculated 2020-03-22 16:27:00 Memori al Soham Procedures Procedure Date / Time Performed Performing Clinician Sourc e Angioplasty [facility] [place] Encounters Start End Encounter Admission Attending Care Care Encounter Source Date/Time Date/Time Type Type Clinicians Facility Department ID 2020-12-06 2020-12-06 Outpatient ARABELLA [facility] [id number] 14:00:00 23:59:59 Gwyn 05 Jared 2020-09-05 2020-09-05 Outpatient [facility]ELLA [facility] [id number] 15:00:00 23:59:59 Gwyn 04 Jared 2020-08-02 2020-08-02 Outpatient ARABELLA [facility] 576 [id number] 11:00:00 11:00:00 Gwyn 02 Jared 2020-06-13 2020-06-13 Orders Doctor BUITRAGO [id number] 00:00:00 00:00:00 Only Unassigned, KARIN [id number] [place] [facility] [id number] 2020-05-22 2020-05-22 Orders Doctor IFTIKHAR [id number] 00:00:00 00:00:00 Only Unassigned, KARIN [id number] [place] [facility] [id number] 2020-05-03 2020-05-03 [facility] [id number] 11:00:00 23:59:59 Gwyn Jared 2020-03-22 2020-03-22 [facility] [id number] 11:00:00 23:59:59 Gwyn 00 Jared 2019-08-05 2019-08-05 Orders Doctor BUITRAGO [id number] 00:00:00 00:00:00 Only Unassigned, KARIN [id number] [place] [facility] [id number] Results This patient has no known results.
[2021-01-02 08:01] LABS: Absolute Lymphocytes (CBC) 0.9 K/uL (0.7-4.9); Basophils % 0.5 % (0-1.3); Hematocrit 47.5 % (36.0-45.0); Lymphocytes % 12.4 % (15.3-44.8); MPV 8.6 fL (7.6-11.3); RBC Red Blood Cell Count 5.38 M/uL (3.86-4.86)
[2021-01-02] MEDS ORDERED: MEPERIDINE HCL 25 MG/ML SYR ONE (08:19)
--- NOTE | 2021-01-02 08:32 | RAD REPORT ---
EXAM DESCRIPTION: CT - Abdomen Pelvis Wo Contrast - 01/02/2021 8:19 am CLINICAL HISTORY: Abdominal pain /left lower quadrant pain COMPARISON: None TECHNIQUE: Computed axial tomography of the abdomen and pelvis was obtained. IV and oral contrast we re not requested. All CT scans are performed using dose optimization technique as appropriate and may include automated exposure control or mA/KV adjustment according to patient size. FINDINGS: The evaluation of solid organs, vessels and bowel is limited secondary to the lack of con trast administration. Small hiatal hernia Cholecystectomy The liver, spleen, pancreas, adrenals and kidneys appear grossly normal. The appendix is normal. An umbilical hernia contains fat. The neck measures 2 centimeters Diverticula stem from the colon. Moderate stranding adjacent to the sigmoid colon. No free air. No ab scess. Spondylosis involves the lumbar spine resulting in spinal stenosis IMPRESSION: Moderate sigmoid diverticulitis
[2021-01-02 08:53] LABS: Albumin 3.7 g/dL (3.4-5.0); Bilirubin Direct 0.3 mg/dL (0-0.2); Bilirubin Total 1.1 mg/dL (0.2-1.0); Potassium 4.2 mmol/L (3.5-5.1); Protein, Total 7.4 g/dL (6.4-8.2)
[2021-01-02] MEDS ORDERED: CIPROFLOXACIN 400mg IV 400 MG/200 ML BAG IV ONE (09:02)
[2021-01-02] MEDS ORDERED: METRONIDAZOLE 500mg IVPB 500 MG/100 ML BAG IV ONE (09:02)
--- NOTE | 2021-01-02 10:05 | EDPHYS ---
Physician Documentation [facility] Name: Karoline Paredes Age: 75 yrs Sex: Female : 1945 Arrival Date: 01/02/2021 Time: 07:31 Bed 26 Private MD: Jeffery Haines V ED Physician Lionel Berg HPI: 01/02 07:40 This 75 yrs old Female presents to ER via Ambulatory with complaints of rn Abdominal Pain. 07:40 The patient presents with abdominal pain in the left lower quadrant. Onset: The rn symptoms/episode began/occurred 3 day(s) ago. The symptoms do not radiate. Associated signs and symptoms: Pertinent positives: diarrhea, Pertinent negatives: blood in stools, dysuria, fever, hematuria, vomiting. The symptoms are described as achy. Modifying factors: The symptoms are alleviated by nothing, the symptoms are aggravated by touching the area. Severity of pain: At its worst the pain was mild in the emergency department the pain is unchanged. The patient has not experienced similar symptoms in the past. The patient has not recently seen a physician. Historical: - Allergies: 07:38 Bactrim; hb 07:38 PENICILLINS; hb - PMHx: 08:18 Diabetes - NIDDM; GERD; Hyperlipidemia; Hypertension; Myocardial infarction; ap3 - Immunization history:: Adult Immunizations up to date. - Social history:: Smoking status: Patient denies any tobacco usage or history of. - Family history:: not pertinent. - Hospitalizations: : No recent hospitalization is reported. ROS: 07:40 Constitutional: Negative for fever, chills, and weight loss, Eyes: Negative for injury, rn pain, redness, and discharge, Neck: Negative for injury, pain, and swelling, Cardiovascular: Negative for chest pain, palpitations, and edema, Respiratory: Negative for shortness of breath, cough, wheezing, and pleuritic chest pain, Abdomen/GI: + left lower abd pain with diarrhea, no blood in stools, + decreased appetite Back: Negative for injury and pain, : Negative for injury, bleeding, discharge, and swelling, MS/Extremity: Negative for injury and deformity, Skin: Negative for injury, rash, and discoloration, Neuro: Negative for headache, weakness, numbness, tingling, and seizure. 07:40 All other systems are negative. Exam: 07:40 Constitutional: This is a well developed, well nourished patient who is awake, alert, rn and in no acute distress. Ambulatory to room without difficulty. Head/Face: Normocephalic, atraumatic. Eyes: Pupils equal round and reactive to light, extra-ocular motions intact. Lids and lashes normal. Conjunctiva and sclera are non-icteric and not injected. Cornea within normal limits. Periorbital areas with no swelling, redness, or edema. Cardiovascular: Regular rate and rhythm. No pulse deficits. Respiratory: Speaking full sentences, unlabored. No increased work of breathing, no retractions or nasal flaring. Abdomen/GI: soft, + LLQ tenderness, no masses, no inguinal tenderness, no rash on abd wall. Skin: Warm, dry MS/ Extremity: Pulses equal, no cyanosis. Neuro: Awake and alert, GCS 15, oriented to person, place, time, and situation. Cranial nerves II-XII grossly intact. Motor strength 5/5 in all extremities. Sensory grossly intact. Cerebellar exam normal. Normal gait. Vital Signs: 07:36 BP 141 / 56; Pulse 97; Resp 16; Temp 97.2; Pulse Ox 97% on R/A; Pain 8/10; hb 08:02 BP 127 / 65; Pulse 74; Resp 19; Pulse Ox 99% on R/A; Pain 7/10; ap3 09:05 BP 127 / 68; Pulse 76; Resp 17; Pulse Ox 99% on R/A; Pain 4/10; ap3 10:10 BP 137 / 77; Pulse 70; Resp 16; Pulse Ox 100% on R/A; Pain 3/10; ap3 10:58 BP 130 / 65; Pulse 69; Resp 18; Pulse Ox 100% on R/A; ap3 MDM: 07:33 Patient medically screened. 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 10:02 Differential diagnosis: appendicitis, bowel obstruction, diverticulitis, non-specific rn abd pain, Ureterolithiasis, urinary tract infection. 10:02 Data reviewed: vital signs, nurses notes, lab test result(s), radiologic studies, CT rn scan, and as a result, I will discharge patient. Counseling: I had a detailed discussion with the patient and/or guardian regarding: the historical points, exam findings, and any diagnostic results supporting the discharge/admit diagnosis, lab results, radiology results, the need for outpatient follow up, to return to the emergency department if symptoms worsen or persist or if there are any questions or concerns that arise at home. Response to treatment: the patient's symptoms have mildly improved after treatment, and as a result, I will discharge patient. Special discussion: Based on the patient's Hx, exam, and Dx evaluation, there is no indication for emergent surgery or inpatient Tx. It is understood by the patient/guardian that if the Sx's persist or worsen they need to return immediately for re-evaluation. I discussed with the patient/guardian in detail that at this point there is no indication for admission to the hospital. It is understood, however, that if the symptoms persist or worsen the patient needs to return immediately for re-evaluation. ED course: Reevaluated patient, feels better, had discussion with her regarding admission vs discharge, pt states feels ok to go home, explained return precautions and possible complications of diverticulitis. . 01/02 07:38 Order name: Basic Metabolic Panel; Complete Time: 10:01 rn 01/02 07:38 Order name: CBC with Diff; Complete Time: 08:28 rn 01/02 07:38 Order name: Hepatic Function; Complete Time: 10: rn 01/02 07:38 Order name: Lipase; Complete Time: 10: rn 01/02 07:38 Order name: IV Saline Lock; Complete Time: 07:56 rn 01/02 07:38 Order name: Labs collected and sent; Complete Time: 07:56 rn 01/02 08:08 Order name: Labs - recollect needed; Complete Time: 08:28 me 01/02 08:14 Order name: Abdomen ; Complete Time: 08:36 EDMS Administered Medications: 08:01 Drug: Demerol (meperidine) 12.5 mg {Note: pt awake, alert. states pain is 7/10.} Route: ap3 IVP; Site: right antecubital; 08:47 Follow up: Response: No adverse reaction; Pain is decreased; RASS: Alert and Calm (0) ap3 08:47 Drug: Flagyl (metroNIDAZOLE) 500 mg Volume: 100 ml; Route: IVPB; Rate: 200 ml/hr; ap3 Infused Over: 30 mins; Site: right antecubital; 10:09 Follow up: IV Status: Completed infusion ap3 10:38 Follow up: Response: No adverse reaction ap3 10:09 Drug: Cipro (ciprofloxacin) 400 mg Volume: 200 ml; Route: IVPB; Infused Over: 60 mins; ap3 Site: right antecubital; 11:12 Follow up: Response: No adverse reaction; IV Status: Completed infusion ap3 Disposition Summary: 01/02/21 10:04 Discharge Ordered Location: Home rn Problem: new rn Symptoms: have improved rn Condition: Stable rn Diagnosis - Diverticulitis of large intestine without perforation or abscess without bleeding rn Followup: rn - With: - When: 1 - 2 days - Reason: Recheck today's complaints, Re-evaluation by your physician Discharge Instructions: - Discharge Summary Sheet rn - Diverticulitis rn Forms: - Medication Reconciliation Form rn - Thank You Letter rn - Antibiotic heel varnisher - Prescription Opioid Use rn Prescriptions: - ondansetron 4 mg Oral tablet,disintegrating - place 1 tablet by TRANSLINGUAL route every 8 hours As needed; 20 tablet; rn Refills: 0, Product Selection Permitted - Flagyl 500 mg Oral Tablet - take 1 tablet by ORAL route every 8 hours for 10 days; 30 tablet; Refills: 0, rn Product Selection Permitted - Cipro 500 mg Oral Tablet - take 1 tablet by ORAL route every 12 hours for 10 days; 20 tablet; Refills: 0, rn Product Selection Permitted Signatures: Dispatcher [employer] EDNY Lionel Berg MD MD rn Baxter, Heather RN BUSHRA Larsen [place] Yazmin Davis RN RN ap3 Corrections: (The following items were deleted from the chart) 08:14 07:39 Abdomen Pelvis W [id number].RAD.BRZ ordered. EDMS EDMS 10:02 07:38 Urine Dipstick-Ancillary ordered. rn rn
--- NOTE | 2021-01-02 10:05 | ER ---
Nurse's Notes [facility] Name: Karoline Paredes Age: 75 yrs Sex: Female : 1945 Arrival Date: 01/02/2021 Time: 07:31 Bed 26 Private MD: Jeffery Haines V Diagnosis: Diverticulitis of large intestine without perforation or abscess without bleeding Presentation: 01/02 07:36 Chief complaint: left sided abdominal pain, decreased appetite, and diarrhea x 3 days. hb Coronavirus screen: At this time, the client does not indicate any symptoms associated with coronavirus-19. Ebola Screen: No symptoms or risks identified at this time. Risk Assessment: Do you want to hurt yourself or someone else? Patient reports no desire to harm self or others. Onset of symptoms was December 30, 2020. 07:36 Method Of Arrival: Ambulatory hb 07:36 Acuity: JOVITA 3 hb 08:18 Initial Sepsis Screen: Does the patient meet any 2 criteria? No. Patient's initial ap3 sepsis screen is negative. Does the patient have a suspected source of infection? No. Patient's initial sepsis screen is negative. Historical: - Allergies: 07:38 Bactrim; hb 07:38 PENICILLINS; hb - PMHx: 08:18 Diabetes - NIDDM; GERD; Hyperlipidemia; Hypertension; Myocardial infarction; ap3 - Immunization history:: Adult Immunizations up to date. - Social history:: Smoking status: Patient denies any tobacco usage or history of. - Family history:: not pertinent. - Hospitalizations: : No recent hospitalization is reported. Screenin:40 Abuse screen: Denies threats or abuse. Nutritional screening: No deficits noted. ap3 Tuberculosis screening: No symptoms or risk factors identified. Fall Risk None identified. Assessment: 07:38 General: Appears in no apparent distress. Behavior is calm, cooperative, appropriate ap3 for age. Pain: Complains of pain in left lower quadrant Pain does not radiate. Quality of pain is described as aching, Pain began 2-3 days ago. Is continuous. Neuro: Level of Consciousness is awake, alert, obeys commands, Oriented to person, place, time, situation, Appropriate for age Gait is steady, Speech is normal. Cardiovascular: Capillary refill < 3 seconds Patient's skin is warm and dry. Respiratory: Airway is patent Respiratory effort is even, unlabored, Respiratory pattern is regular, symmetrical. GI: Bowel sounds present X 4 quads. Abd is soft X 4 quads Abdomen is tender to palpation in left lower quadrant. : No signs and/or symptoms were reported regarding the genitourinary system. EENT: No signs and/or symptoms were reported regarding the EENT system. Derm: No signs and/or symptoms reported regarding the dermatologic system. Musculoskeletal: Range of motion: intact in all extremities. 08:31 Reassessment: nurse provided patient with specimen cup and education on clean catch for ap3 urine. patient verbalized understanding. 10:10 Reassessment: Patient and/or family updated on plan of care and expected duration. Pain ap3 level reassessed. Patient is alert, oriented x 3, equal unlabored respirations, skin warm/dry/pink. General:. 10:37 Reassessment: awaiting completion of antibiotic prior to discharge. ap3 Vital Signs: 07:36 BP 141 / 56; Pulse 97; Resp 16; Temp 97.2; Pulse Ox 97% on R/A; Pain 8/10; hb 08:02 BP 127 / 65; Pulse 74; Resp 19; Pulse Ox 99% on R/A; Pain 7/10; ap3 09:05 BP 127 / 68; Pulse 76; Resp 17; Pulse Ox 99% on R/A; Pain 4/10; ap3 10:10 BP 137 / 77; Pulse 70; Resp 16; Pulse Ox 100% on R/A; Pain 3/10; ap3 10:58 BP 130 / 65; Pulse 69; Resp 18; Pulse Ox 100% on R/A; ap3 ED Course: 07:31 Patient arrived in ED. mr 07:31 Jeffery Haines MD is Private Physician. mr 07:33 Lionel Berg MD is Attending Physician. rn 07:37 Triage completed. hb 07:38 Yazmin Pierre, BUSHRA is Primary Nurse. ap3 07:38 Arm band placed on. hb 07:40 Patient has correct armband on for positive identification. Pulse ox on. NIBP on. Door ap3 closed. Noise minimized. 07:50 Inserted saline lock: 20 gauge in right antecubital area, using aseptic technique. ap3 Blood collected. 08:[address] via wheelchair. ap3 08:20 Abdomen In Process Unspecified. EDMS 08:[address] Patient [address] back from [address]. ap3 10:04 Jeffery Haines MD is Referral Physician. rn 11:25 No provider procedures requiring assistance completed. IV discontinued, intact, ap3 bleeding controlled, No redness/swelling at site. Pressure dressing applied. Administered Medications: 08:01 Drug: Demerol (meperidine) 12.5 mg {Note: pt awake, alert. states pain is 7/10.} Route: ap3 IVP; Site: right antecubital; 08:47 Follow up: Response: No adverse reaction; Pain is decreased; RASS: Alert and Calm (0) ap3 08:47 Drug: Flagyl (metroNIDAZOLE) 500 mg Volume: 100 ml; Route: IVPB; Rate: 200 ml/hr; ap3 Infused Over: 30 mins; Site: right antecubital; 10:09 Follow up: IV Status: Completed infusion ap3 10:38 Follow up: Response: No adverse reaction ap3 10:09 Drug: Cipro (ciprofloxacin) 400 mg Volume: 200 ml; Route: IVPB; Infused Over: 60 mins; ap3 Site: right antecubital; 11:12 Follow up: Response: No adverse reaction; IV Status: Completed infusion ap3 Outcome: 10:04 Discharge ordered by . rn 11:25 Discharged to home ambulatory, with family. ap3 11:25 Condition: good 11:25 Discharge instructions given to patient, Instructed on discharge instructions, follow up and referral plans. medication usage, Demonstrated understanding of instructions, follow-up care, medications, Prescriptions given X 3. 11:26 Patient left the ED. ap3 Signatures: Dispatcher [employer] [facility] Nora Smiht Lioenl Schulz MD MD rn Baxter, Heather, RN RN hb Prokisch, Amanda, RN RN ap3
[2021-01-02 11:32] VITALS: TEMP 97.2
[2021-01-02 11:39] VITALS: O2SAT 100
[2021-01-02 11:40] VITALS: BP 130/65
== END 2021-01-02 11:26 | disposition home or self-care (01) ==
LOC: ER 07:29
DX: K57.32 Diverticulitis of large intestine without perforation or abscess without bleeding (principal); I10 Essential (primary) hypertension; Z88.0 Allergy status to penicillin; Z88.1 Allergy status to other antibiotic agents
CPT/HCPCS: 85025; 80048; 36415; 82565; 80076; 83690; 74176; J2175; J0744; 96365; 96367; 96375; 99284

== ENCOUNTER 2023-08-04 18:17 | Inpatient (IN) | payer OTHER, MEDICARE ==
[2023-08-04 20:18] LABS: Absolute Lymphocytes (CBC) 0.9 K/uL (0.7-4.9); Hematocrit 52.9 % (36.0-45.0); Lymphocytes % 10.6 % (15.3-44.8); MCV 87.8 fL (80-100); MPV 8.3 fL (7.6-11.3); Platelets 185 thou/uL (152-406); RBC Red Blood Cell Count 6.03 M/uL (3.86-4.86)
[2023-08-04 20:30] LABS: SARS-CoV-2 Antigen Rapid Res Negative (Negative)
[2023-08-04 20:33] LABS: Albumin 3.7 g/dL (3.4-5.0); Bilirubin Total 0.7 mg/dL (0.2-1.0); Potassium 3.6 mEq/L (3.5-5.1); Protein, Total 7.9 g/dL (6.4-8.2)
[2023-08-04] MEDS ORDERED: NA CHLORIDE 0.9% 1,000 ML ONE (20:55)
--- NOTE | 2023-08-04 21:25 | RAD REPORT ---
EXAM DESCRIPTION: CT - Abdomen Pelvis Wo Contrast - 08/04/2023 9:04 pm CLINICAL HISTORY: Abdominal pain acute renal insufficiency COMPARISON: 2020 TECHNIQUE: Computed axial tomography of the abdomen and pelvis was obtained. IV and oral contrast we re not requested. All CT scans are performed using dose optimization technique as appropriate and may include automated exposure control or mA/KV adjustment according to patient size. FINDINGS: The evaluation of solid organs, vessels and bowel is limited secondary to the lack of con trast administration. The liver, spleen, pancreas, adrenals and kidneys appear grossly normal. Diverticula stem from the colon. Narrowing of the lumen sigmoid colon. Minimal stranding in the adjac ent fat No adnexal mass Spondylosis involves the lumbar spine resulting in spinal stenosis Small to moderate umbilical hernia contains fat IMPRESSION: Narrowing of the lumen sigmoid colon with minimal stranding in the adjacent fat probably a minimal diverticulitis. An underlying mass can have this appearance but is considered less likely. Follow-up recommended
--- NOTE | 2023-08-04 22:22 | EDPHYS ---
Physician Documentation [facility] Name: Karoline Paredes Age: 78 yrs Sex: Female : 1945 Arrival Date: 08/04/2023 Time: 18:17 Bed 8 Private MD: ED Physician Antolin Rivera HPI: 08/04 19:19 This 78 yrs old Female presents to ER via Ambulatory with complaints of Low Blood sb4 Sugar, Diarrhea, Low Blood Pressure. 19:19 diarrhea x 1 week. patient lives alone, has dementia. family states that she has not sb4 been eating as much, they are unsure if it is because of her recent increase in dementia medications. family noted her to have low blood pressure and low blood sugar prior to arrival. patient denies any abdominal pain, nausea, vomiting, blood in stool, or rectal bleeding. however family states that patient is a very poor historian. Historical: - Allergies: 18:55 Bactrim; nj1 18:55 PENICILLINS; nj1 - PMHx: 18:55 Diabetes - NIDDM; GERD; Hyperlipidemia; Hypertension; Myocardial infarction; Dementia; nj1 - PSHx: 18:55 R arm/shoulder repairs; Cholecystectomy; nj1 - Immunization history:: Client reports receiving the 2nd dose of the Covid vaccine. - Social history:: Smoking status: Patient denies any tobacco usage or history of. ROS: 19:19 Constitutional: Negative for fever, chills, and weight loss, sb4 19:19 Abdomen/GI: Positive for diarrhea, 19:19 All other systems are negative, Exam: 19:19 Constitutional: This is a well developed, well nourished patient who is awake, alert, sb4 and in no acute distress. Head/Face: Normocephalic, atraumatic. Eyes: Extra-ocular motions intact. Periorbital areas with no swelling, redness, or edema. ENT: Mucous membranes moist. Cardiovascular: Regular rate and rhythm with a normal S1 and S2. Respiratory: Lungs have equal breath sounds bilaterally, clear to auscultation and percussion. No rales, rhonchi or wheezes noted. No increased work of breathing, no retractions or nasal flaring. Abdomen/GI: Soft, non-tender, no distension. Skin: Warm, dry with normal turgor. Normal color with no rashes, no lesions, and no evidence of cellulitis. MS/ Extremity: Pulses equal, no cyanosis. Neurovascular intact. Full, normal range of motion. Neuro: Awake and alert, GCS 15, oriented to person, place, time, and situation. Motor strength 5/5 in all extremities. Sensory grossly intact. Vital Signs: 18:52 BP 129 / 68; Pulse 61; Resp 16; Temp 97.5(TE); Pulse Ox 100% on R/A; Weight 54.43 kg; wa1 Height 5 ft. 3 in. ; Pain 0/10; 19:16 BP 123 / 60; Pulse 53; Resp 16 S; Pulse Ox 100% on R/A; 7 20:00 BP 131 / 56; Pulse 51; Resp 17 S; Pulse Ox 100% on R/A; [facility] 21:00 BP 137 / 66; Pulse 55; Resp 17; Pulse Ox 97% ; [facility] 22:00 BP 97 / 54; Pulse 58; Resp 16; Pulse Ox 97% ; [facility] 23:00 BP 101 / 60; Pulse 57; Resp 17; Pulse Ox 98% ; [facility] 08/05 00:00 BP 123 / 47; Pulse 51; Resp 16; Pulse Ox 99% ; [facility] 01:06 BP 113 / 48; Pulse 60; Resp 17; Pulse Ox 100% ; Pain 0/10; [facility] 02:00 BP 120 / 51; Pulse 60; Resp 16; Pulse Ox 99% ; Pain 0/10; [facility] 08/04 18:52 Body Mass Index 21.26 (54.43 kg, 160.02 cm) [facility] 08/04 18:52 Pain Scale: Adult [facility] 01:06 Pain Scale: Adult 7 02:00 Pain Scale: Adult jj7 MDM: 08/04 19:01 Patient medically screened. sb4 19:19 Differential diagnosis: medication reaction, colitis, diverticulitis, hypokalemia, sb4 hypovolemia. 22:22 Data reviewed: vital signs, nurses notes, EMS record, old medical records, lab test sp4 result(s), radiologic studies, CT scan. 08/04 19:09 Order name: CBC with Diff; Complete Time: 20:31 sb4 08/04 19:09 Order name: CMP; Complete Time: 20:48 4 08/04 19:09 Order name: Lipase; Complete Time: 20:48 sb4 08/04 19:09 Order name: SARS RAPID; Complete Time: 20:31 sb4 08/04 19:09 Order name: Flu; Complete Time: 20:02 sb4 08/04 19:11 Order name: Glucose, Ancillary Testing; Complete Time: 19:13 EDMS 08/04 19:13 Order name: Glucose, Ancillary Testing EDMS 08/04 21:24 Order name: Glucose, Ancillary Testing; Complete Time: 22:08 EDMS 08/04 20:49 Order name: CT Abd/Pelvis - Without Contrast; Complete Time: 22:08 sb4 08/04 19:09 Order name: IV Saline Lock; Complete Time: 19:46 sb4 08/04 19:09 Order name: Labs collected and sent; Complete Time: 20:15 sb4 Administered Medications: 20:59 Drug: NS 0.9% IV 1000 ml IV at 1 bolus Per protocol; 1000 mL bolus Route: IV; Rate: 1 jj7 bolus; Site: right hand; 08/05 00:05 Drug: Rocephin - Rocephin (cefTRIAXone) IVPB 1 grams IVPB once over 30 mins; (mix in 50 jj7 mL NS) Route: IVPB; Infused Over: 30 mins; Site: right hand; 00:39 Follow up: IV Status: Completed infusion 00:47 Drug: metroNIDAZOLE IVPB 500 mg 100 ml IVPB at 200 ml/hr once over 30 mins Volume: 100 jj7 ml; Route: IVPB; Rate: 200 ml/hr; Infused Over: 30 mins; Site: right hand; 01:27 Follow up: IV Status: Completed infusion j 01:27 Drug: Albumin IVPB 25 grams 100 ml IVPB once; (Note: Albumin 25% concentration) Volume: jj7 100 ml; Route: IVPB; Site: right hand; 02:18 Follow up: IV Status: Completed infusion j 02:23 Drug: D5-NS IV 1000 ml IV at 125 ml/hr continuous Route: IV; Rate: 125 ml/hr; Site: [facility] right hand; 02:24 Follow up: IV Status: Infusion continued upon admission jj7 Disposition: 08/04 22:20 Co-signature as Attending Physician, Antolin Rivera MD I agree with the assessment sp4 and plan of care. I reviewed the patient's care provided by Advanced Practice Provider \T\ agree w/ the diagnosis \T\ care plan. I personally saw the pt \T\ performed a substantive portion of the visit, incldng all aspects of the (History/Exam/Medical Decision Making). Disposition Summary: 08/04/23 22:21 Hospitalization Ordered Notes: Hospitalization Status: Inpatient Admission sp4 Provider: Jeffery Haines sp4 Location: Telemetry/[facility] (Inpatient) sp4 Condition: Stable sp4 Problem: new sp4 Symptoms: have improved sp4 Bed/Room Type: Standard sp4 Room Assignment: 210(08/04/23 23:14) kmf Diagnosis - Diverticulosis of large intestine without perforation or abscess without bleeding sp4 - Acute renal insufficiency, diarrhea, acute diverticulitis, moderate dehydration sp4 Forms: - Medication Reconciliation Form sp4 - SBAR form sp4 - Leadership Thank You Letter sp4 Signatures: Dispatcher [employer] EDDanei Ram RN RN jj7 Sophia Davalos, PA-C PA-C sb4 Antolin Rivera MD MD sp4 Nora Virgen RN RN nj1 Oma Goncalves kmf Corrections: (The following items were deleted from the chart) 20:55 19:10 Abdomen Pelvis W Con+CT.RAD.BRZ ordered. EDMS EDMS 23:14 22:21 sp4 kmf
--- NOTE | 2023-08-04 22:22 | ER ---
Nurse's Notes [facility] Name: Karoline Paredes Age: 78 yrs Sex: Female : 1945 Arrival Date: 08/04/2023 Time: 18:17 Bed 8 Private MD: Diagnosis: Diverticulosis of large intestine without perforation or abscess without bleeding;Acute renal insufficiency, diarrhea, acute diverticulitis, moderate dehydration Presentation: 08/04 18:52 Chief complaint: Patient's son or daughter states: Diarrhea for about a week, low blood nj sugar today "39". Not eating/drinking. Low blood pressure 86/69. Coronavirus screen: Vaccine status: Patient reports receiving the 2nd dose of the covid vaccine. Ebola Screen: Patient denies travel to an Ebola-affected area in the 21 days before illness onset. Initial Sepsis Screen: Does the patient meet any 2 criteria? No. Patient's initial sepsis screen is negative. Does the patient have a suspected source of infection? No. Patient's initial sepsis screen is negative. Risk Assessment: Do you want to hurt yourself or someone else? Patient reports no desire to harm self or others. Onset of symptoms was July 2023. 18:52 Method Of Arrival: Ambulatory [facility] 18:52 Acuity: JOVITA 3 nj1 Historical: - Allergies: 18:55 Bactrim; nj1 18:55 PENICILLINS; nj1 - PMHx: 18:55 Diabetes - NIDDM; GERD; Hyperlipidemia; Hypertension; Myocardial infarction; Dementia; nj1 - PSHx: 18:55 R arm/shoulder repairs; Cholecystectomy; nj1 - Immunization history:: Client reports receiving the 2nd dose of the Covid vaccine. - Social history:: Smoking status: Patient denies any tobacco usage or history of. Screenin:25 [facility] ED Fall Risk Assessment (Adult) History of falling in the last 3 months, jj7 including since admission No falls in past 3 months (0 pts) Confusion or Disorientation No (0 pts) Intoxicated or Sedated No (0 pts) Impaired Gait No (0 pts) Mobility Assist Device Used No (0 pt) Altered Elimination No (0 pt) Score/Fall Risk Level 0 - 2 = Low Risk Oriented to surroundings, Maintained a safe environment, Educated pt \\T\\ family on fall prevention, incl call for assistance when getting out of bed. Abuse screen: Denies threats or abuse. Nutritional screening: PT STATES SHE HASN'T EVEN SINCE YESTERDAY. Tuberculosis screening: No symptoms or risk factors identified. Assessment: 19:25 General: Appears in no apparent distress. comfortable, Behavior is calm, cooperative, jj7 appropriate for age. Pain: Denies pain. Neuro: No deficits noted. GI: No deficits noted. No signs and/or symptoms were reported involving the gastrointestinal system. FAMILY STATES DIARRHEA. PT STATES SHE HASN'T HAD DIARRHEA IN A WEEK. Vital Signs: 18:52 BP 129 / 68; Pulse 61; Resp 16; Temp 97.5(TE); Pulse Ox 100% on R/A; Weight 54.43 kg; nj1 Height 5 ft. 3 in. ; Pain 0/10; 19:16 BP 123 / 60; Pulse 53; Resp 16 S; Pulse Ox 100% on R/A; jw7 20:00 BP 131 / 56; Pulse 51; Resp 17 S; Pulse Ox 100% on R/A; jw7 21:00 BP 137 / 66; Pulse 55; Resp 17; Pulse Ox 97% ; jj7 22:00 BP 97 / 54; Pulse 58; Resp 16; Pulse Ox 97% ; jj7 23:00 BP 101 / 60; Pulse 57; Resp 17; Pulse Ox 98% ; jj7 08/05 00:00 BP 123 / 47; Pulse 51; Resp 16; Pulse Ox 99% ; jj7 01:06 BP 113 / 48; Pulse 60; Resp 17; Pulse Ox 100% ; Pain 0/10; jj7 02:00 BP 120 / 51; Pulse 60; Resp 16; Pulse Ox 99% ; Pain 0/10; jj7 08/04 18:52 Body Mass Index 21.26 (54.43 kg, 160.02 cm) fl1 08/04 18:52 Pain Scale: Adult nj1 01:06 Pain Scale: Adult jj7 02:00 Pain Scale: Adult jj7 ED Course: 08/04 18:20 Patient arrived in ED. im 18:23 Sophia Davalos PA-C is PHCP. sb4 18:23 Nahum Roper MD is Attending Physician. sb4 18:55 Triage completed. nj1 18:56 Arm band placed on right wrist. nj1 19:25 Patient has correct armband on for positive identification. Bed in low position. Call jj7 light in reach. Side rails up X 1. Adult w/ patient. 19:25 Inserted saline lock: 22 gauge in right hand, using aseptic technique. jj7 20:20 Radiology exam delayed due to lab results not completed at this time. (BUN/Creatinine). nj 20:21 SARS RAPID Sent. jj7 21:05 CT Abd/Pelvis - Without Contrast In Process Unspecified. EDMS 21:12 Attending Physician role handed off by Nahum oRper MD sb4 21:12 Antolin Rivera MD is Attending Physician. sb4 22:20 Jeffery Haines MD is Hospitalizing Provider. sp4 08/05 02:25 No provider procedures requiring assistance completed. Patient admitted, IV remains in jj7 place. Administered Medications: 08/04 20:59 Drug: NS 0.9% IV 1000 ml IV at 1 bolus Per protocol; 1000 mL bolus Route: IV; Rate: 1 jj7 bolus; Site: right hand; 08/05 00:05 Drug: Rocephin - Rocephin (cefTRIAXone) IVPB 1 grams IVPB once over 30 mins; (mix in 50 jj7 mL NS) Route: IVPB; Infused Over: 30 mins; Site: right hand; 00:39 Follow up: IV Status: Completed infusion jj7 00:47 Drug: metroNIDAZOLE IVPB 500 mg 100 ml IVPB at 200 ml/hr once over 30 mins Volume: 100 jj7 ml; Route: IVPB; Rate: 200 ml/hr; Infused Over: 30 mins; Site: right hand; 01:27 Follow up: IV Status: Completed infusion jj7 01:27 Drug: Albumin IVPB 25 grams 100 ml IVPB once; (Note: Albumin 25% concentration) Volume: jj7 100 ml; Route: IVPB; Site: right hand; 02:18 Follow up: IV Status: Completed infusion jj7 02:23 Drug: D5-NS IV 1000 ml IV at 125 ml/hr continuous Route: IV; Rate: 125 ml/hr; Site: [facility] right hand; 02:24 Follow up: IV Status: Infusion continued upon admission jj7 Medication: 08/04 19:25 VIS not applicable for this client. jj7 Outcome: 22:21 Decision to Hospitalize by Provider. sp4 08/05 01:37 Admitted to Med/surg accompanied by tech, via wheelchair, Report called to ROSY TOMLINSON jj7 02:25 Condition: good samantha 02:26 Patient left the ED. [email or web address] Signatures: Dispatcher [employer] EDMS Ludwin Pickering Jodi, RN RN jw7 Danie Tomas RN RN jj7 Sophia Davalos, PAJennyfer PA-C [email or web address] Antolin Rivera MD MD sp4 Nora Virgen RN RN nj1 Josefina Mukherjee
[2023-08-04] MEDS ORDERED: NA CHLORIDE 0.9% 50 ML ONE (22:46)
[2023-08-04] MEDS ORDERED: CEFTRIAXONE 1000 MG/VIAL ONE (22:46)
[2023-08-04] MEDS ORDERED: METRONIDAZOLE 500mg IVPB 500 MG/100 ML BAG IV ONE (22:47)
[2023-08-04] MEDS ORDERED: D5 0.9 NS 1,000 ML IV ONE (22:48)
[2023-08-04] MEDS: ALBUMIN HUMAN 25% 100 ML IV ONE (22:50)
[2023-08-05] MEDS ORDERED: ONDANSETRON 4 MG/2 ML VIAL IV PRN (02:26)
[2023-08-05] MEDS ORDERED: ALPRAZOLAM 0.25 MG TABLET PO PRN (02:26)
[2023-08-05] MEDS ORDERED: ALBUTEROL 2.5 MG/3 ML NEB SOL NEB PRN (02:26)
[2023-08-05] MEDS ORDERED: ACETAMINOPHEN 325 MG TABLET PO PRN (02:26)
[2023-08-05 02:53] VITALS: BMI 25.0
[2023-08-05] MEDS: D5 0.9 NS 1,000 ML IV SCH ×2 (02:53→12:35)
[2023-08-05 06:44] LABS: Potassium 3.4 mEq/L (3.5-5.1)
[2023-08-05] MEDS: INSULIN REGULAR (HUMAN) 100 UNIT/ML SQ SCH (07:30)
[2023-08-05] MEDS: CEFTRIAXONE 1,000 MG in NA CHLORIDE 0.9% 50 ML IVPB SCH (07:50)
[2023-08-05] MEDS: METRONIDAZOLE 500mg IVPB 500 MG/100 ML BAG IV SCH (07:51)
[2023-08-05] MEDS: PNEUMOCOCCAL VACCINE 0.5 ML IMVAC ONE (12:36)
--- NOTE | 2023-08-05 13:00 | P.HP ---
Patient History Date of Service: 08/05/23 Reason for admission: DIARRHEA AND WEAKENSS History of Present Illness: NANCY IS A PATIENT WITH DM AND CKD WITH DEMENTIA. SHE HAS BEEN A NON COMPLIANT PATIENT FOR LONG TIME. SHE COMES WITH DIARRHEA AND WEAKNESS. SHE HAS SLIGHT WORSENED CREATININE. Allergies Penicillins Allergy (Mild, Verified 08/05/23 02:42) Itching sulfamethoxazole [From Bactrim] Allergy (Mild, Verified 08/05/23 02:42) Itching trimethoprim [From Bactrim] Allergy (Mild, Verified 08/05/23 02:42) Itching Home medications list reviewed: Yes Home Medications: Atorvastatin Calcium [Lipitor] 80 mg PO BEDTIME 01/30/18 Losartan Potassium 100 mg PO DAILY 01/30/18 Metoprolol Tartrate 25 mg PO BID 6AM 6PM 01/30/18 Venlafaxine HCl 27.5 mg PO DAILY AT SUPPER 01/30/18 Magnesium Oxide [Mag 0X*] 400 mg PO BID 12/12/19 Aspirin [Aspirin EC 81 MG] 81 mg PO DAILY 05/30/20 Donepezil [Aricept*] 5 mg PO BEDTIME 05/30/20 Mecobalamin [B12 Active] 1 tab PO DAILY 05/30/20 Multivit-Min/Iron/Folic/Lutein [Centrum Silver Women Tablet] 1 tab PO DAILY 05/30/20 - Past Medical/Surgical History Has patient received pneumonia vaccine in the past: No Diabetic: Yes -: Diabetes -: GErd -: Hyperlipidemia -: HTN -: NH -: tubaligation -: cholecystectomy -: Knee surgery -: 3 right shoulder surgeries - Family History Father -: Hypertension, Stroke Mother -: Heart disease, Other (see notes) Notes: ALZHEIMER'S Brother -: Heart disease - Social History Smoking Status: Never smoker Alcohol use: No CD- Drugs: No Caffeine use: Yes Place of Residence: Home Review of Systems 10-point ROS is otherwise unremarkable Gastrointestinal: Diarrhea, As per HPI Physical Examination - Vital Signs Temperature: 97.3 F Blood Pressure: 119/60 Pulse: 60 Respirations: 12 Pulse Ox (%): 100 - Physical Exam General: Alert, In no apparent distress HEENT: Atraumatic, PERRLA, Mucous membr. moist/pink, EOMI, Sclerae nonicteric Neck: Supple, 2+ carotid pulse no bruit, No LAD, Without JVD or thyroid abnormality Respiratory: Clear to auscultation bilaterally, Normal air movement Cardiovascular: Regular rate/rhythm, Normal S1 S2 Gastrointestinal: Normal bowel sounds, No tenderness Musculoskeletal: No tenderness Integumentary: No rashes Neurological: Normal gait, Normal speech, Normal strength at 5/5 x4 extr, Normal tone, Normal affect Lymphatics: No axilla or inguinal lymphadenopathy - Studies Laboratory Data (last 24 hrs) 08/04/23 08/04/23 20:02 20:02 WBC 8.80 Hgb 18.1 H Hct 52.9 H Plt Count 185 Sodium 142 Potassium 3.6 BUN 28 H Creatinine 1.57 H Glucose 73 L Total Bilirubin 0.7 AST 43 H ALT 42 Alkaline Phosphatase 192 H Lipase 63 Microbiology Data (last 24 hrs): 08/04/23 19:25 Nasopharnyx Influenza Type A Antigen Screen - Final 08/04/23 19:25 Nasopharnyx Influenza Type B Antigen Screen - Final Assessment and Plan - Problems (Diagnosis) (1) Viral gastroenteritis Current Visit: Yes Status: Acute Plan: ALREADY IMPROVED I AM NOT SURE ABOUT CT REPORT OF DIVERTICULITIS. SHE HAS NO TENDERNESS. MAY GO HOME IN AM AMBULATE BEFORE DC. (2) Dehydration Current Visit: No Status: Acute Plan: IV FLUIDS. (3) Diabetes mellitus due to underlying condition with chronic kidney disease on chronic dialysis Current Visit: Yes Status: Chronic Plan: WILL FU LAB. DAILY. PT AMBULATE. - Advance Directives Does patient have a Living Will: No Does patient have a Durable POA for Healthcare: No
[2023-08-05] MEDS: ENOXAPARIN 30 MG/0.3 ML SQ SCH (14:52)
[2023-08-05 21:12] VITALS: O2SAT 97
[2023-08-06 00:54] LABS: Specific Gravity 1.027 (1.005-1.030); Urine Bacteria None Seen /HPF (<20); Urine Bilirubin NEGATIVE (Negative); Urine Blood Trace (Negative); Urine Clarity Extremely Turbid (Clear); Urine Color Light-Yellow (Yellow); Urine Glucose 4+ (Over) (Negative); Urine Mucus Slight /HPF (None Seen); Urine Protein TRACE (Negative); Urine Urobilinogen Normal (Normal); Urine WBC Clump Rare /HPF (None Seen); Urine pH 5.5 (5.0-7.0)
[2023-08-06 05:57] VITALS: TEMP 97.4
[2023-08-06 08:42] VITALS: BP 122/58
[2023-08-06] MEDS: POTASSIUM CL SA 10 MEQ TAB PO SCH (08:55)
[2023-08-06] MEDS ORDERED: ENOXAPARIN 40 MG/0.4 ML SQ SCH (09:00)
[2023-08-06 09:14] LABS: Absolute Lymphocytes (CBC) 1.4 K/uL (0.7-4.9); Hematocrit 44.5 % (36.0-45.0); Lymphocytes % 27.9 % (15.3-44.8); MCV 87.8 fL (80-100); MPV 8.3 fL (7.6-11.3); Platelets 148 thou/uL (152-406); RBC Red Blood Cell Count 5.07 M/uL (3.86-4.86)
[2023-08-06 09:27] LABS: Potassium 3.3 mEq/L (3.5-5.1)
[2023-08-06] MEDS: POTASSIUM CL SA 10 MEQ TAB PO ONE (12:37)
== END 2023-08-06 14:57 | disposition home or self-care (01) | DRG 392 ==
LOC: ER 18:17 → ERHOLD 22:26 → 2ND 08-05 02:14
PROVIDERS: ADMIT Internal Medicine; ATTEND Internal Medicine
DX: A08.4 Viral intestinal infection, unspecified (principal); E78.5 Hyperlipidemia, unspecified; E86.0 Dehydration; I12.9 Hypertensive chronic kidney disease with stage 1 through stage 4 chronic kidney disease, or unspecified chronic kidney disease; N18.9 Chronic kidney disease, unspecified; E11.22 Type 2 diabetes mellitus with diabetic chronic kidney disease; K21.9 Gastro-esophageal reflux disease without esophagitis; F03.90 Unspecified dementia, unspecified severity, without behavioral disturbance, psychotic disturbance, mood disturbance, and anxiety; I25.2 Old myocardial infarction; Z23 Encounter for immunization; Z88.1 Allergy status to other antibiotic agents; Z88.0 Allergy status to penicillin; Z11.52 Encounter for screening for COVID-19; Z90.49 Acquired absence of other specified parts of digestive tract; Z79.82 Long term (current) use of aspirin; Z98.51 Tubal ligation status; Z91.199 Patient's noncompliance with other medical treatment and regimen due to unspecified reason
CPT/HCPCS: 36415; 74176; 80048; 80053; 81001; 82947; 83690; 85025; 87086; 87088; 87804; 87811; 90471; 90732; 96365; 96367; 96375; 97116; 97161; 99285; J0696; J1650; J1815; J7030; J7042; P9047

== ENCOUNTER 2023-10-28 22:05 | Inpatient (IN) | payer OTHER, MEDICARE ==
[2023-10-28] MEDS ORDERED: NA CHLORIDE 0.9% 1,000 ML ONE (23:15)
[2023-10-28] MEDS ORDERED: ONDANSETRON 4 MG/2 ML VIAL ONE (23:15)
[2023-10-29 00:18] LABS: PT Prothrombin Time 11.8 SECONDS (9.5-12.5); Protime INR 1.07
[2023-10-29 00:20] LABS: Absolute Basophils 0.1 K/uL (0-0.5); Absolute Eosinophils 0.1 K/uL (0-0.5); Absolute Lymphocytes (CBC) 1.4 K/uL (0.7-4.9); Absolute Monocytes 0.5 K/uL (0.1-1.3); Absolute Neutrophil 3.8 K/uL (1.8-8.0); Basophils % 0.9 % (0-1.3); Eosinophils % 2.2 % (0-4.4); Hematocrit 44.6 % (36.0-45.0); Hemoglobin 15.1 g/dL (12.0-15.0); Lymphocytes % 24.2 % (15.3-44.8); MCH 30.5 pg (27.0-35.0); MCHC 33.8 g/dL (32.0-36.0); MCV 90.3 fL (80-100); MPV 8.2 fL (7.6-11.3); Monocytes % 8.3 % (3.3-12.3); Neutrophils % 64.4 % (41.7-73.7); Nucleated Red Blood Cells % 0.3 % (0-0); Platelets 169 thou/uL (152-406); RBC Red Blood Cell Count 4.94 M/uL (3.86-4.86); Red Cell Distribution Width 14.2 % (12.1-15.2)
[2023-10-29 00:37] LABS: ALT/SGPT 39 U/L (13-56); AST/SGOT 26 U/L (15-37); Albumin 3.2 g/dL (3.4-5.0); Albumin/Globulin Ratio 0.8 (1.1-1.8); Alkaline Phosphatase 143 U/L (45-117); Anion Gap 6.7 mEq/L (5.0-15.0); BUN Blood Urea Nitrogen 17 mg/dL (7-18); Bicarbonate 28 mEq/L (21-32); Bilirubin Total 0.4 mg/dL (0.2-1.0); Globulin 3.8 g/dL (2.3-3.5); Glomerular Filtration Rate 36 ml/min (=/>90); Glucose Level 279 mg/dL (74-106); Lipase 37 U/L (13-75); NT PRO-BNP 1033 pg/mL (<450); Potassium 3.7 mEq/L (3.5-5.1); Sodium Level 141 mEq/L (136-145); Thyroid Stimulating Hormone 0.907 uIU/mL (0.358-3.740)
[2023-10-29 00:42] LABS: Bilirubin Direct < 0.2 mg/dL (0-0.2); Bilirubin Indirect, Calculated 0.2 mg/dL (0.2-0.8)
--- NOTE | 2023-10-29 03:30 | ER ---
Nurse's Notes [facility] Name: Karoline Paredes Age: 78 yrs Sex: Female : 1945 Arrival Date: 10/28/2023 Time: 22:05 Bed 13 Private MD: Diagnosis: Acute chest pain, acute angina, shortness of breath, congestive heart failure, diabetes complications, hyperglycemia, nausea vomiting diarrhea, acute gastroenteritis Presentation: 10/27 22:16 Chief complaint: EMS states: THEY WERE INITIALLY CALLED OUT BY HER SON FOR SOB, BUT jj7 WHEN THEY ARRIVED NO SOB, PT IS FEELING SAD AND LONELY. Coronavirus screen: At this time, the client does not indicate any symptoms associated with coronavirus-19. Ebola Screen: No symptoms or risks identified at this time. Initial Sepsis Screen: Does the patient meet any 2 criteria? No. Patient's initial sepsis screen is negative. Does the patient have a suspected source of infection? No. Patient's initial sepsis screen is negative. Risk Assessment: Do you want to hurt yourself or someone else? Patient reports no desire to harm self or others. Onset of symptoms was October 28, 2023. Care prior to arrival: IV initiated. 20 GA, in the left hand, Glucose check: 320. 22:16 Method Of Arrival: EMS: [facility] jj7 22:16 Acuity: JOVITA 4 jj7 Triage Assessment: 22:19 General: Appears in no apparent distress. comfortable, Behavior is calm, cooperative, jj7 appropriate for age, flat, SAD. Pain: Denies pain. Neuro: No deficits noted. Level of Consciousness is awake, alert, obeys commands, Oriented to person, place, situation. Historical: - Allergies: 22:19 Bactrim; jj7 22:19 PENICILLINS; jj7 - PMHx: 22:19 Dementia; Diabetes - NIDDM; GERD; Hyperlipidemia; Hypertension; Myocardial infarction; jj7 - PSHx: 22:19 Cholecystectomy; R arm/shoulder repairs; jj7 - Infectious Disease History:: Denies. - Social history:: Smoking status: Patient denies any tobacco usage or history of. Patient/guardian denies using alcohol, street drugs, IV drugs. - Family history:: not pertinent. Screenin:21 Abuse screen: Denies threats or abuse. Nutritional screening: No deficits noted. jj7 Tuberculosis screening: No symptoms or risk factors identified. Assessment: 22:21 Reassessment: SEE TRIAGE ASSESSMENT. j7 Vital Signs: 22:16 BP 153 / 63; Pulse 77; Resp 16; Temp 98.6; Pulse Ox 96% ; Weight 79.83 kg; Height 5 ft. j7 9 in. ; Pain 0/10; 23:30 BP 140 / 67; Pulse 77; Resp 19; Pulse Ox 97% ; j7 10/28 00:37 BP 129 / 65; Pulse 83; Resp 18; Pulse Ox 96% ; j7 01:30 BP 125 / 61; Pulse 73; Resp 20; Pulse Ox 96% ; j7 02:30 BP 115 / 59; Pulse 75; Resp 17; Pulse Ox 95% ; j7 03:30 BP 110 / 54; Pulse 72; Resp 17; Pulse Ox 96% ; j7 04:33 BP 122 / 59; Pulse 76; Resp 16; Temp 98.3; Pulse Ox 94% ; j7 10/27 22:16 Body Mass Index 25.99 (79.83 kg, 175.26 cm) [facility] 10/27 22:16 Pain Scale: Adult j [place] Coma Score: 00:00 Eye Response: spontaneous(4). Motor Response: obeys commands(6). Verbal Response: sp4 oriented(5). Total: 15. ED Course: 10/27 22:13 Patient arrived in ED. vk 22:14 Antolin Rivera MD is Attending Physician. sp4 22:15 Danie Tomas RN is Primary Nurse. jj7 22:19 Triage completed. jj7 22:19 Arm band placed on right wrist. Patient placed in an exam room, on a stretcher. jj7 22:21 Patient has correct armband on for positive identification. Placed in gown. Bed in low jj7 position. Call light in reach. Side rails up X2. Provided Education on: USE OF CALL MONTALVO. 22:21 No provider procedures requiring assistance completed. Maintain EMS IV. Dressing jj7 intact. Good blood return noted. Site clean \T\ dry. Gauge \T\ site: 20G LEFT HAND. 23:22 XRAY Chest (1 view) In Process Unspecified. EDMS 23:55 Initial lab(s) drawn, by nc, sent to lab. First set of blood cultures drawn by me. j10/28 00:05 Second set of blood cultures drawn by me. j 00:06 Basic Metabolic Panel Sent. 00:06 CBC with Diff Sent. 00:06 LFT's Sent. j 00:06 Magnesium Sent. 00:06 PT-INR Sent. 00:06 NT PRO-BNP Sent. 00:06 Troponin HS Sent. j 00:07 T4 Free Sent. 00:07 TSH Sent. 00:07 Blood Culture Adult (2) Sent. 00:07 Lipase Sent. 00:40 Repositioned patient. Cleaned of incontinence. 01:27 Abdomen In Process Unspecified. EDMS 03:27 Jeffery Haines MD is Hospitalizing Provider. sp4 Administered Medications: 00:00 Drug: NS 0.9% IV 1000 ml IV at 125 ml/hr continuous Route: IV; Rate: 125 ml/hr; Site: [facility] left hand; 05:18 Follow up: IV Status: Infusion continued upon admission 00:00 Drug: Ondansetron IVP 4 mg IVP once; over 2 minutes Route: IVP; Site: left hand; [facility] 00:20 Follow up: Response: No adverse reaction Medication: 10/27 22:21 VIS not applicable for this client. Outcome: 10/28 03:29 Decision to Hospitalize by Provider. sp4 05:17 Patient left the ED. jb4 Signatures: Dispatcher [employer] EDIL Guero Cooley RN RN jb4 Danie Tomas RN RN jj7 Antolin Rivera MD MD sp4 Alison Jimenez
--- NOTE | 2023-10-29 03:30 | EDPHYS ---
Physician Documentation [facility] Name: Karoline Paredes Age: 78 yrs Sex: Female : 1945 Arrival Date: 10/28/2023 Time: 22:05 Bed 13 Private MD: ED Physician Antolin Rivera HPI: 10/27 22:14 This 78 yrs old Female presents to ER via Unassigned with complaints of sp4 general complaint . 10/28 00:00 78-year-old female presents with complaint of chest pain shortness of breath. Also sp4 complaining of diarrhea and vomiting. Patient is primary MD is Dr. Haines. Patient has moderate dementia and not able to provide full history. She does report chest pain shortness of breath nausea vomiting and diarrhea. . Historical: - Allergies: 10/27 22:19 Bactrim; jj7 22:19 PENICILLINS; jj7 - PMHx: 22:19 Dementia; Diabetes - NIDDM; GERD; Hyperlipidemia; Hypertension; Myocardial infarction; jj7 - PSHx: 22:19 Cholecystectomy; R arm/shoulder repairs; jj7 - Infectious Disease History:: Denies. - Social history:: Smoking status: Patient denies any tobacco usage or history of. Patient/guardian denies using alcohol, street drugs, IV drugs. - Family history:: not pertinent. ROS: 10/28 00:00 Constitutional: Negative for fever, chills, and weight loss, positive chest pain sp4 positive shortness of breath positive nausea positive vomiting , positive diarrhea Eyes: Negative for injury, pain, redness, and discharge, All other systems are negative, Exam: 00:00 Constitutional: This is a well developed, well nourished patient who is awake, alert, sp4 and in no acute distress. Head/Face: Normocephalic, atraumatic. Eyes: Pupils equal round and reactive to light, extra-ocular motions intact. Lids and lashes normal. Conjunctiva and sclera are not injected. Cornea within normal limits. Periorbital areas with no swelling, redness, or edema. ENT: Nares patent. No nasal discharge, no septal abnormalities noted. Tympanic membranes are normal and external auditory canals are clear. Oropharynx with no redness, swelling, or masses, exudates, or evidence of obstruction, uvula midline. Mucous membranes moist. Neck: Trachea midline, no thyromegaly or masses palpated, and no cervical lymphadenopathy. Supple, full range of motion without nuchal rigidity, or vertebral point tenderness. Chest/axilla: Normal chest wall appearance and motion. Nontender with no deformity. No lesions are appreciated. Cardiovascular: Regular rate and rhythm with a normal S1 and S2. No gallops, murmurs, or rubs. Normal PMI, no JVD. No pulse deficits. Respiratory: Lungs have equal breath sounds bilaterally, clear to auscultation and percussion. No rales, rhonchi or wheezes noted. No increased work of breathing, no retractions or nasal flaring. Abdomen/GI: Soft, with normal bowel sounds. No distension or tympany. No guarding or rebound. No evidence of tenderness throughout. Back: No spinal tenderness. No costovertebral tenderness. Skin: Warm, dry with normal turgor. Normal color with no rashes, no lesions, and no evidence of cellulitis. MS/ Extremity: Pulses equal, no cyanosis. Neurovascular intact. Full, normal range of motion. Neuro: Awake and alert, GCS 15, oriented to person, place, time, and situation. Cranial nerves II-XII grossly intact. Motor strength 5/5 in all extremities. Sensory grossly intact. 00:08 ECG was reviewed by the Attending Physician. EKG at 23:12 Reveals reveals sp4 normal sinus rhythm at 77 Vital Signs: 10/27 22:16 BP 153 / 63; Pulse 77; Resp 16; Temp 98.6; Pulse Ox 96% ; Weight 79.83 kg; Height 5 ft. jj7 9 in. ; Pain 0/10; 23:30 BP 140 / 67; Pulse 77; Resp 19; Pulse Ox 97% ; jj7 08 00:37 BP 129 / 65; Pulse 83; Resp 18; Pulse Ox 96% ; jj7 01:30 BP 125 / 61; Pulse 73; Resp 20; Pulse Ox 96% ; jj7 02:30 BP 115 / 59; Pulse 75; Resp 17; Pulse Ox 95% ; jj7 03:30 BP 110 / 54; Pulse 72; Resp 17; Pulse Ox 96% ; jj7 04:33 BP 122 / 59; Pulse 76; Resp 16; Temp 98.3; Pulse Ox 94% ; 7 10/27 22:16 Body Mass Index 25.99 (79.83 kg, 175.26 cm) [facility] 10/27 22:16 Pain Scale: Adult 7 [place] Coma Score: 00:00 Eye Response: spontaneous(4). Motor Response: obeys commands(6). Verbal Response: sp4 oriented(5). Total: 15. MDM: 10/27 22:35 Patient medically screened. sp4 10/28 02:58 Differential Diagnosis altered mental status, sepsis, flu. Data reviewed: vital signs, sp4 nurses notes, EMS record, old medical records, lab test result(s), EKG, radiologic studies, CT scan, plain films. Consideration of Admission/Observation Patient was admitted/placed on observation. Escalation of care including admission/observation considered. Management of patient was discussed with the following: Primary Care Provider: Zaki MCBRIDE . ED course: EXAM DESCRIPTION: Abdomen Pelvis Wo Contrast CLINICAL HISTORY: ABD PAIN COMPARISON: 08/04/2023 TECHNIQUE: Contiguous axial images of the abdomen and pelvis were obtained by reconstruction images.This exam was performed according to our departmental dose-optimization program, which includes automated exposure control, adjustment of the mA and/or kV according to patient size and/or use of iterative reconstruction technique. FINDINGS: Patient is status post cholecystectomy. There is a hiatal hernia. There is atherosclerosis. Calcifications within the pelvis compatible with phleboliths. There is a subacute/old fracture of the superior endplate of the L1 vertebral body. The liver, spleen, pancreas and kidneys are within normal limits. There is no hydronephrosis or renal stones. Adrenal glands are within normal limits. Aorta is of normal caliber and tapering. There is no free fluid in the abdomen or pelvis. There is no bowel obstruction. There is no stranding of the mesenteric fat to suggest an inflammatory response. The appendix is within normal limits. There is no pericecal inflammation. IMPRESSION: No acute intra-abdominal abnormality. . ED course: EXAM DESCRIPTION: Chest Single View CLINICAL HISTORY:78 years Female, CHEST PAIN Comparison: Chest radiograph dated 05/30/2020 IMPRESSION: No focal consolidation. No pleural effusion. No pneumothorax. Cardiomediastinal silhouette is within normal limits. Suggested prior osteotomy of the proximal right humerus.. ED course: Patient presented with chest pain, shortness of breath, additional complaint of diarrhea and vomiting. Workup thus far is unremarkable. Patient will be admitted for repeat troponin, monitoring on telemetry, and repeat evaluation in the morning by her PMD. . 10/27 22:56 Order name: Basic Metabolic Panel; Complete Time: 01:06 sp4 10/27 22:56 Order name: CBC with Diff; Complete Time: 01:06 sp4 10/27 22:56 Order name: LFT's; Complete Time: 01:06 sp4 10/27 22:56 Order name: Magnesium; Complete Time: 01:06 sp4 10/27 22:56 Order name: NT PRO-BNP; Complete Time: 01:06 sp4 10/27 22:56 Order name: PT-INR; Complete Time: 01:06 sp4 10/27 22:56 Order name: Troponin HS; Complete Time: 01:06 sp4 10/27 22:57 Order name: Lipase; Complete Time: 01:06 sp4 10/27 22:57 Order name: Blood Culture Adult (2) 4 10/27 22:57 Order name: TSH; Complete Time: 01:06 sp4 10/27 22:57 Order name: T4 Free; Complete Time: 01:06 sp4 10/27 22:56 Order name: XRAY Chest (1 view) [facility] 10/28 01:09 Order name: Abdomen [facility] 10/27 22:56 Order name: EKG; Complete Time: 22:57 sp4 10/27 22:56 Order name: Cardiac monitoring; Complete Time: 00:06 4 10/27 22:56 Order name: EKG - Nurse/Tech; Complete Time: 00:06 4 10/27 22:56 Order name: IV Saline Lock; Complete Time: 00:06 sp4 10/27 22:56 Order name: Labs collected and sent; Complete Time: 00:06 4 10/27 22:56 Order name: O2 Per Protocol; Complete Time: 00:06 sp4 10/27 22:56 Order name: O2 Sat Monitoring; Complete Time: 00:06 sp4 EC:08 Rate is 77 beats/min. Rhythm is regular, Normal Sinus Rhythm. Left axis deviation sp4 noted. AL interval is normal. QRS interval is normal. QT interval is normal. No Q waves. T waves are Normal. No ST changes noted. Clinical impression: No evidence of ischemia. Interpreted by me. Reviewed by me. Administered Medications: 00:00 Drug: NS 0.9% IV 1000 ml IV at 125 ml/hr continuous Route: IV; Rate: 125 ml/hr; Site: [facility] left hand; 05:18 Follow up: IV Status: Infusion continued upon admission 7 00:00 Drug: Ondansetron IVP 4 mg IVP once; over 2 minutes Route: IVP; Site: left hand; j 00:20 Follow up: Response: No adverse reaction Disposition Summary: 10/29/23 03:29 Hospitalization Ordered Notes: Hospitalization Status: Observation sp4 Provider: Jeffery Haines sp4 Location: Telemetry/MedSurg (observation) sp4 Condition: Stable sp4 Problem: new sp4 Symptoms: have improved sp4 Bed/Room Type: Standard sp4 Room Assignment: 206(10/29/23 03:40) vk Diagnosis - Acute chest pain, acute angina, shortness of breath, congestive heart failure, sp4 diabetes complications, hyperglycemia, nausea vomiting diarrhea, acute gastroenteritis Forms: - Medication Reconciliation Form sp4 - SBAR form sp4 - Leadership Thank You Letter sp4 Signatures: Dispatcher [employer] EDDanie Ram RN RN jj7 Antolin Rivera MD MD sp4 Alison Jimenez Corrections: (The following items were deleted from the chart) 10/27 22:58 22:58 LIPASE+C.LAB.BRZ ordered. EDMS EDMS 22:58 22:58 BLOOD CULTURE*+BA.LAB.BRZ ordered. EDMS EDMS 22:58 22:58 THYROID STIMULAT HORMONE+C.LAB.BRZ ordered. EDMS EDMS 22:58 22:58 T4 FREE+C.LAB.BRZ ordered. EDMS EDMS 10/28 01:09 10/27 22:58 Abdomen Pelvis W Con+CT.RAD.BRZ ordered. EDMS EDMS 10/28 03:40 03:29 sp4 vk
[2023-10-29] MEDS ORDERED: ALBUTEROL 2.5 MG/3 ML NEB SOL NEB PRN (04:16)
[2023-10-29] MEDS ORDERED: HYDRALAZINE HCL 20 MG/ML VIAL IV PRN (04:16)
[2023-10-29] MEDS ORDERED: ACETAMINOPHEN 325 MG TABLET PO PRN (04:16)
[2023-10-29] MEDS ORDERED: ALPRAZOLAM 0.25 MG TABLET PO PRN (04:16)
[2023-10-29] MEDS ORDERED: ONDANSETRON 4 MG/2 ML VIAL IV PRN (04:16)
[2023-10-29] MEDS: INSULIN REGULAR (HUMAN) 100 UNIT/ML SQ SCH (08:10)
--- NOTE | 2023-10-29 12:44 | RAD REPORT ---
EXAM DESCRIPTION: RAD - Chest Single View - 10/28/2023 11:20 pm CLINICAL HISTORY: 8 years Female, CHEST PAIN COMPARISON: Chest radiograph dated 05/30/2020 IMPRESSION: No focal consolidation. No pleural effusion. No pneumothorax. Cardiomediastinal silhouette is within normal limits. Suggested prior osteotomy of the proximal right humerus. Electronically signed by: Balbir Dove DO 10/28/2023 11:32 PM CDT Due to temporary technical issues with the PACS/Fluency reporting system, reports are being signed by the in house radiologist without review as a courtesy to ensure prompt reporting. The interpreting r adiologist is fully responsible for the content of the report.
--- NOTE | 2023-10-29 12:45 | RAD REPORT ---
EXAM DESCRIPTION: CT - Abdomen Pelvis Wo Contrast - 10/29/2023 6:05 am CLINICAL HISTORY: ABD PAIN COMPARISON: 08/04/2023 TECHNIQUE: Contiguous axial images of the abdomen and pelvis were obtained by reconstruction images. This exam was performed according to our departmental dose-optimization program, which includes autom ated exposure control, adjustment of the mA and/or kV according to patient size and/or use of iterati ve reconstruction technique. FINDINGS: Patient is status post cholecystectomy. There is a hiatal hernia. There is atherosclerosis . Calcifications within the pelvis compatible with phleboliths. There is a subacute/old fracture of t he superior endplate of the L1 vertebral body. The liver, spleen, pancreas and kidneys are within normal limits. There is no hydronephrosis or renal stones. Adrenal glands are within normal limits. Aorta is of normal caliber and tapering. There is n o free fluid in the abdomen or pelvis. There is no bowel obstruction. There is no stranding of the me senteric fat to suggest an inflammatory response. The appendix is within normal limits. There is no p ericecal inflammation. IMPRESSION: No acute intra-abdominal abnormality. Electronically signed by: Srinath Campoverde MD 10/29/2023 01:38 AM CDT Due to temporary technical issues with the PACS/Fluency reporting system, reports are being signed by the in house radiologist without review as a courtesy to ensure prompt reporting. The interpreting r adiologist is fully responsible for the content of the report.
--- NOTE | 2023-10-29 13:06 | EKG ---
Test Date: 2023-10-28 Test Time: 23:12:36 Typewriter Mechanic: VALERY MEASUREMENT RESULTS: Intervals: Rate: 77 [place]: 154 QRSD: 86 QT: 392 QTc: 443 Allen: P: 29 [place]: 154 QRS: -31 T: 34 INTERPRETIVE STATEMENTS: Normal sinus rhythm Left axis deviation Abnormal ECG Compared to ECG 05/30/2020 17:41:33 Left-axis deviation now present Electronically Signed On 10-29-23 13:05:41 CDT by Michael Mejia
--- NOTE | 2023-10-29 17:46 | P.SSS ---
Patient History Date of Service: 10/29/23 Reason for admission: chest pain History of Present Illness: Karoline is 78 years old lady with DM, mild ckd and dementia who told her friend she had chest pain and she called son to get her here. She is stable. She has no idea about chest pain. She already has forgotten about it. She is now painfree. Allergies Penicillins Allergy (Mild, Verified 08/05/23 02:42) Itching sulfamethoxazole [From Bactrim] Allergy (Mild, Verified 08/05/23 02:42) Itching trimethoprim [From Bactrim] Allergy (Mild, Verified 08/05/23 02:42) Itching Home medications list reviewed: Yes Home Medications: Atorvastatin Calcium [Lipitor] 80 mg PO BEDTIME 01/30/18 Losartan Potassium 50 mg PO DAILY 01/30/18 Metoprolol Tartrate 25 mg PO BID 6AM 6PM 01/30/18 Donepezil [Aricept*] 10 mg PO BID 05/30/20 Clopidogrel Bisulfate [Plavix*] 75 mg PO DAILY 08/05/23 Dapagliflozin Propanediol [Farxiga] 10 mg PO DAILY 08/05/23 Gabapentin 600 mg PO DAILY 08/05/23 Insulin Glargine/Lixisenatide [Soliqua 100 Unit-33 Mcg/ml Pen] 3 ml SQ DAILY 08/05/23 Memantine HCl 5 mg PO BID 08/05/23 Repaglinide 2 mg PO BID 08/05/23 Trazodone HCl 100 mg PO BEDTIME 08/05/23 Cefuroxime [Ceftin*] 250 mg PO BID #10 tab 08/06/23 - Past Medical/Surgical History Has patient received pneumonia vaccine in the past: Yes Diabetic: Yes -: Diabetes -: GErd -: Hyperlipidemia -: HTN -: [place] -: tubaligation -: cholecystectomy -: Knee surgery -: 3 right shoulder surgeries - Family History Father -: Hypertension, Stroke Mother -: Heart disease, Other (see notes) Notes: ALZHEIMER'S Brother -: Heart disease - Social History Smoking Status: Never smoker Alcohol use: No CD- Drugs: No Caffeine use: No Place of Residence: Home Review of Systems 10-point ROS is otherwise unremarkable Eyes: Other, As per HPI Physical Examination - Vital Signs Temperature: 97.7 F Blood Pressure: 131/62 Pulse: 83 Respirations: 16 Pulse Ox (%): 98 - Physical Exam General: Alert, In no apparent distress HEENT: Atraumatic, PERRLA, Mucous membr. moist/pink, EOMI, Sclerae nonicteric Neck: Supple, 2+ carotid pulse no bruit, No LAD, Without JVD or thyroid abno rmality Respiratory: Clear to auscultation bilaterally, Normal air movement Cardiovascular: Regular rate/rhythm, Normal S1 S2 Gastrointestinal: Normal bowel sounds, No tenderness Musculoskeletal: No tenderness Integumentary: No rashes Neurological: Normal gait, Normal speech, Normal strength at 5/5 x4 extr, Normal tone, Normal affect, Dementia (mod. forgets recent events, time, date etc. ) Lymphatics: No axilla or inguinal lymphadenopathy - Studies Laboratory Data (last 24 hrs) 10/28/23 10/28/23 10/28/23 23:55 23:55 23:55 WBC 5.90 Hgb 15.1 H Hct 44.6 Plt Count 169 PT 11.8 INR 1.07 Sodium 141 Potassium 3.7 BUN 17 Creatinine 1.49 H Glucose 279 H Magnesium 2.0 Total Bilirubin 0.4 AST 26 ALT 39 Alkaline Phosphatase 143 H Lipase 37 - Diagnosis (Problem(s)) (1) Chest pain Current Visit: Yes Status: Acute Plan: not able to discern the character of pain from her. she is at high risk from Dm and age. I talked to Dr. Alwash. Rider in am. NPO after midnight in case if needs cath or st test. (2) Diabetes mellitus due to underlying condition with chronic kidney disease on chronic dialysis Current Visit: No Status: Chronic - Disposition Disposition: ROUTINE DISCHARGE
[2023-10-30 07:09] LABS: Anion Gap 8.9 mEq/L (5.0-15.0); Potassium 3.9 mEq/L (3.5-5.1)
--- NOTE | 2023-10-30 10:03 | P.CNS ---
Date of Consult: 10/30/23 Chief Complaint: chest pain History of Present Illness: Patient with PMH of CAD/PCI, HTN, DM, HLD and dementia presented with chest pain, unable to tell much due to dementia but she told friends and family she had an episode of chest pain, she denies having any symptoms this morning, no dizziness, no palpitations, no syncope. Allergies Penicillins Allergy (Mild, Verified 08/05/23 02:42) Itching sulfamethoxazole [From Bactrim] Allergy (Mild, Verified 08/05/23 02:42) Itching trimethoprim [From Bactrim] Allergy (Mild, Verified 08/05/23 02:42) Itching Home Medications: Atorvastatin Calcium [Lipitor] 80 mg PO BEDTIME 01/30/18 Losartan Potassium 50 mg PO DAILY 01/30/18 Metoprolol Tartrate 25 mg PO BID 6AM 6PM 01/30/18 Donepezil [Aricept*] 10 mg PO BID 05/30/20 Clopidogrel Bisulfate [Plavix*] 75 mg PO DAILY 08/05/23 Dapagliflozin Propanediol [Farxiga] 10 mg PO DAILY 08/05/23 Gabapentin 600 mg PO DAILY 08/05/23 Insulin Glargine/Lixisenatide [Soliqua 100 Unit-33 Mcg/ml Pen] 3 ml SQ DAILY 08/05/23 Memantine HCl 5 mg PO BID 08/05/23 Repaglinide 2 mg PO BID 08/05/23 Trazodone HCl 100 mg PO BEDTIME 08/05/23 Cefuroxime [Ceftin*] 250 mg PO BID #10 tab 08/06/23 - Past Medical/Surgical History Diabetic: Yes -: Diabetes -: GErd -: Hyperlipidemia -: HTN -: [place] -: tubaligation -: cholecystectomy -: Knee surgery -: 3 right shoulder surgeries - Family History Father Medical History: Hypertension, Stroke Mother Medical History: Heart disease, Other (see notes) Notes: ALZHEIMER'S Brother Medical History: Heart disease - Social History Alcohol use: No CD- Drugs: No Caffeine use: No Place of Residence: Home Review of Systems 10-point ROS is otherwise unremarkable Physical Examination Temp Pulse Resp BP Pulse Ox 97.6 F 63 16 133/61 97 10/30/23 08:00 10/30/23 08:00 10/30/23 08:00 10/30/23 08:00 10/30/23 08:00 General: Alert HEENT: Atraumatic Neck: Supple Respiratory: Clear to auscultation bilaterally Cardiovascular: No edema, Normal S1 S2 Gastrointestinal: Normal bowel sounds - Problems (1) HTN (hypertension) Current Visit: Yes Status: Acute Plan: Patient BP is normal here off medications, would consider cutting back her home metoprolol to 12.5 mg po BID and losartan to 50 mg daily. (2) HLD (hyperlipidemia) Current Visit: Yes Status: Acute Plan: continue Lipitor 80 mg daily Lipid panel as outpatient (3) Chest pain Current Visit: Yes Status: Acute Plan: patient denies having any symptoms this morning, EKG is negative for ischemia and troponin are negative. patient can go home and follow up with cardiology for outpatient stress test. Continue Plavix 75 mg daily.
[2023-10-31 01:25] VITALS: O2SAT 98
[2023-10-31 05:28] VITALS: BMI 25.9
[2023-10-31 09:24] VITALS: BP 141/66; TEMP 97.6
== END 2023-10-31 10:50 | disposition home or self-care (01) | DRG 313 ==
LOC: ER 22:05 → 2ND 10-29 03:19 → OBSVTOIN 10-30 16:49
PROVIDERS: ADMIT Internal Medicine; ATTEND Internal Medicine
DX: R07.9 Chest pain, unspecified (principal); E78.5 Hyperlipidemia, unspecified; K52.9 Noninfective gastroenteritis and colitis, unspecified; K21.9 Gastro-esophageal reflux disease without esophagitis; I12.9 Hypertensive chronic kidney disease with stage 1 through stage 4 chronic kidney disease, or unspecified chronic kidney disease; N18.9 Chronic kidney disease, unspecified; E11.22 Type 2 diabetes mellitus with diabetic chronic kidney disease; E11.65 Type 2 diabetes mellitus with hyperglycemia; F03.B0 Unspecified dementia, moderate, without behavioral disturbance, psychotic disturbance, mood disturbance, and anxiety; I25.10 Atherosclerotic heart disease of native coronary artery without angina pectoris; I25.2 Old myocardial infarction; Z88.0 Allergy status to penicillin; Z99.2 Dependence on renal dialysis; Z79.4 Long term (current) use of insulin; Z88.1 Allergy status to other antibiotic agents; Z98.51 Tubal ligation status; Z79.02 Long term (current) use of antithrombotics/antiplatelets; Z90.49 Acquired absence of other specified parts of digestive tract; Z79.899 Other long term (current) drug therapy
CPT/HCPCS: 36415; 71045; 74176; 80048; 80076; 82947; 83690; 83735; 83880; 84439; 84443; 84484; 85025; 85610; 87040; 93005; 96361; 96374; 99284; G0378; J1815; J2405; J7030

== ENCOUNTER 2024-06-07 07:09 | Day surgery (SDC) | payer OTHER, MEDICARE ==
[2024-06-04 13:11] LABS: Absolute Eosinophils 0.2 K/uL (0-0.5); Absolute Lymphocytes (CBC) 1.6 K/uL (0.7-4.9); Absolute Monocytes 0.4 K/uL (0.1-1.3); Absolute Neutrophil 3.1 K/uL (1.8-8.0); Basophils % 0.8 % (0-1.3); Hematocrit 47.2 % (36.0-45.0); Hemoglobin 15.1 g/dL (12.0-15.0); Lymphocytes % 29.8 % (15.3-44.8); MCV 90.8 fL (80-100); MPV 8.2 fL (7.6-11.3); Neutrophils % 57.4 % (41.7-73.7); Platelets 176 thou/uL (152-406); RBC Red Blood Cell Count 5.19 M/uL (3.86-4.86); Red Cell Distribution Width 14.5 % (12.1-15.2)
--- NOTE | 2024-06-04 13:16 | RAD REPORT ---
EXAM: Chest Single View HISTORY: PREOP COMPARISON: 10/28/2023 FINDINGS: LUNGS/PLEURA: The lungs are clear. No pleural effusions or pneumothorax. No pulmonary edema. MEDIASTINUM: The mediastinal silhouette is within normal limits. CARDIAC: The cardiac silhouette is within normal limits. UPPER ABDOMEN: No significant abnormality. BONES: No acute fracture. LINES/TUBES/OTHER: N/A IMPRESSION: No evidence of acute cardiopulmonary disease.
[2024-06-04 13:19] LABS: PT Prothrombin Time 11.1 SECONDS (9.4-12.5); PTT, Activated Partial Thromb 32.9 SECONDS (24.3-36.9); Protime INR 0.99
[2024-06-04 13:23] LABS: Anion Gap 9.4 mEq/L (5.0-15.0); Potassium 4.4 mEq/L (3.5-5.1)
[2024-06-07] MEDS ORDERED: NA CHLORIDE 0.9% 1,000 ML ONE (07:27)
[2024-06-07] MEDS ORDERED: CEFAZOLIN SODIUM 1 GM/VIAL ONE (07:27)
[2024-06-07] MEDS ORDERED: propofoL 200 MG/20 ML VIAL IV ONE (08:17)
[2024-06-07] MEDS ORDERED: LIDOCAINE 1% MPF 5 ML VIAL ONE (08:17)
[2024-06-07] MEDS ORDERED: ONDANSETRON 4 MG/2 ML VIAL ONE (08:17)
[2024-06-07] MEDS: BUPIVACAINE 0.5% PF 10 ML VIAL ONE (08:30)
[2024-06-07] MEDS ORDERED: EPHEDRINE SULF 50 MG/ML VIAL ONE (08:44)
[2024-06-07] MEDS: CEFAZOLIN SODIUM 2 GM/VIAL ONE (08:48)
--- NOTE | 2024-06-07 09:33 | P.OP ---
Date of Service: 06/07/24 Preop diagnosis: Left arm mass Postop diagnosis: Same Procedure performed: Wide excision left arm mass 6 x 3 cm with layered closure Surgeon: Mando Anthony MD Orderlies Teacher: None Estimated blood loss: Minimal Specimen: Left arm mass Findings: As above pending pathology Anesthesia: MAC Complications: None Drains: None Fluids and blood products: Nonapplicable Disposition: Recovery room Operative note: Patient brought to the OR and placed in supine position. MAC anesthesia began. Patient prepped and draped in usual sterile fashion. Marcaine 0.5% infiltrated locally. 15 blade used to make approximately a 6 x 3 cm incision to include this 2.5 cm ulcerated mass. Subcu tissue divided and the entire mass excised and sent to pathology for frozen section. Frozen section revealed no evidence of cancer however other disease process cannot be ruled out. Wound irrigated bleeding controlled cautery. Flaps created. 4-0 chromic used to approximate subcutaneous tissue. 5-0 nylon used to close skin. Sterile dressing applied. Patient awakened and taken to recovery room in good general condition. CC:
[2024-06-07] MEDS ORDERED: HYDROCODONE/APAP 5/325 MG TAB ONE (10:20)
[2024-06-07] MEDS: HYDROCODONE/APAP 5/325 MG TAB PO PRN (10:23)
[2024-06-07 11:24] VITALS: BP 144/48; TEMP 97; O2SAT 97
--- NOTE | 2024-06-10 11:41 | EKG ---
Test Date: 2024-06-04 Test Time: 13:51:17 Director Of Software Engineering: MR MEASUREMENT RESULTS: Intervals: Rate: 64 HI: 174 QRSD: 80 QT: 402 QTc: 414 Carney: P: 37 HI: 174 QRS: -43 T: 30 INTERPRETIVE STATEMENTS: Normal sinus rhythm Left axis deviation Inferior infarct, age undetermined Anterior infarct, age undetermined Abnormal ECG Compared to ECG 10/28/2023 23:12:36 Myocardial infarct finding now present Electronically Signed On 06-10-24 11:38:58 REGISTERED [employer] SUR[employer] by Ziggy Jha
== END 2024-06-07 10:45 | disposition home or self-care (01) ==
LOC: OR 07:09
PROVIDERS: ATTEND Surgery
PROC: 0JBH0ZZ Excision of Left Lower Arm Subcutaneous Tissue and Fascia, Open Approach (ICD-10-PCS; principal; 2024-06-07 08:30)
DX: D23.62 Other benign neoplasm of skin of left upper limb, including shoulder (principal); L90.5 Scar conditions and fibrosis of skin
CPT/HCPCS: 93005; 85025; 80048; 36415; 85610; 82947; 88331; 88332; 88305; 85730; 71045; 11406; J2704; J2003; J2405; J7030; J0690